=== PATIENT | female | born 1995 | race Caucasian/White ===

== ENCOUNTER 2016-06-30 16:46 | Emergency (ER) | payer OTHER ==
[2016-06-30 17:14] VITALS: BP 125/59; PULSE 98; RESP 20; TEMP 98.1
[2016-06-30] MEDS ORDERED: KETOROLAC 60 MG/2 ML VIAL IM STA (17:23)
[2016-06-30] MEDS ORDERED: ORPHENADRINE 30 MG/ML 2 ML VIAL IM STA (17:23)
[2016-06-30 17:40] LABS: Appearance,Urine Cloudy (Clear); Bacteria,Urine Occasional /hpf; Bilirubin,Urine Negative (Negative); Glucose,Urine (UA) Negative (Negative); Ketones,Urine Negative (Negative); Leukocyte Esterase,Urine Moderate (Negative); Mucus,Urine Rare /hpf; Nitrite,Urine Negative (Negative); PH, Urine 6.5 (5.0-8.0); Particle Count 24972; Protein,Urine Trace (Negative); RBC,Urine 10 /hpf (0-5); Specific Gravity,Urine 1.021 (1.001-1.035); Squamous Epithelial Cell,Urine 5 /hpf (0-4); UA Billing (MACRO vs. MICRO) MICRO; Urobilinogen,Urine <2.0 mg/dL (<2.0); WBC,Urine 11 /hpf (0-5)
--- NOTE | 2016-06-30 17:46 | ED ---
Back Pain HPI - General Chief Complaint: Back Pain/Injury Stated Complaint: Back Pain Time Seen by Provider: 06/30/16 17:16 Source: patient Limitations: no limitations - History of Present Illness Initial Comments: Patient is a 20-year-old female with chief complaint of bilateral lower back pain for approximately one day. Patient reports that she woke up with this pain, and occasionally wraps to the left lower abdomen. She states that she's taken Motrin without any help. She denies any dysuria, fever or chills. She states that she has no vaginal discharge. Patient reports LMP was on 2 months ago, so patient reports she is on the Nexplanon implant. Patient reports that she had a negative test yesterday. Ports of the pain is worse with movement. Patient denies any fever, chills, nausea, vomiting, chest pain. - Related Data Previous Rx's Medication Instructions Recorded Cyclobenzaprine [Flexeril] 10 mg PO TID #20 tab 06/30/16 Nitrofurantoin Monohyd/M-Cryst 100 mg PO Q12HR #10 cap 06/30/16 [Macrobid] traMADol HCl [Ultram] 50 mg PO Q6H PRN #15 tab 06/30/16 Allergies Allergy/AdvReac Type Severity Reaction Status Date / Time venom-honey bee Allergy Anaphylaxis Verified 06/30/16 17:31 [bee venom (honey bee)] Review of Systems ROS Statement: Those systems with pertinent positive or pertinent negative responses have been documented in the HPI. ROS Other: All systems not noted in ROS Statement are negative. Past Medical History Past Medical History: No Reported History History of Any Multi-Drug Resistant Organisms: None Reported Past Surgical History: No Surgical Hx Reported Past Anesthesia/Blood Transfusion Reactions: No Reported Reaction Past Psychological History: No Psychological Hx Reported Smoking Status: Never smoker Past Alcohol Use History: Occasional Past Drug Use History: None Reported - Past Family History Mother Family Medical History: No Reported History General Exam - General Exam Comments Initial Comments: Pleasant 20-year-old female. Patient does not appear to be in any acute distress. Limitations: no limitations General appearance: alert, in no apparent distress Head exam: Present: atraumatic, normocephalic, normal inspection Eye exam: Present: normal appearance, PERRL, EOMI. Absent: scleral icterus, conjunctival injection, periorbital swelling ENT exam: Present: normal exam, normal oropharynx, mucous membranes moist, TM's normal bilaterally Neck exam: Present: normal inspection. Absent: tenderness, meningismus, lymphadenopathy Respiratory exam: Present: normal lung sounds bilaterally. Absent: respiratory distress, wheezes, rales, rhonchi, stridor Cardiovascular Exam: Present: regular rate, normal rhythm, normal heart sounds. Absent: systolic murmur, diastolic murmur, rubs, gallop, clicks GI/Abdominal exam: Present: soft, normal bowel sounds. Absent: distended, tenderness, guarding, rebound, rigid Extremities exam: Present: normal inspection, full ROM, normal capillary refill. Absent: tenderness, pedal edema, joint swelling, calf tenderness Back exam: Present: normal inspection, full ROM, other (Mild lumbar lower spinal tenderness.). Absent: tenderness Neurological exam: Present: alert, oriented X3, CN II-XII intact Psychiatric exam: Present: normal affect, normal mood Skin exam: Present: warm, dry, intact, normal color. Absent: rash Course Vital Signs 06/30/16 17:11 Temperature 98.1 F Pulse Rate 98 Respiratory 20 Rate Blood Pressure 125/59 O2 Sat by Pulse 99 Oximetry Medical Decision Making - Medical Decision Making Patient is a 20-year-old female with chief complaint of lower back pain for approximately one day. Patient reports that she will comply with this pain. She also reports that occasionally radiates towards her left lower quadrant with certain movements. Patient's urinalysis that show moderate blood and white blood cells. Patient denies any significant dysuria reports that she does have frequent urinary tract infections. Patient denies any trauma because her injury of back pain. Patient declines having any x-rays or imaging studies. Patient was given IM Toradol and Norflex. Also urinalysis will be treated and cultured for urinary tract infection. She'll be placed on Macrobid. Patient advised to follow up with primary care provider if symptoms continue persist. Return parameters were discussed. - Lab Data Lab Results 06/30/16 06/30/16 Range/Units 17:30 17:30 Urine Color Yellow Urine Appearance Cloudy H (Clear) Urine pH 6.5 (5.0-8.0) Ur Specific [place] 1.021 (1.001-1.035) Urine Protein Trace H (Negative) Urine Glucose (UA) Negative (Negative) Urine Ketones Negative (Negative) Urine Blood Moderate H (Negative) Urine Nitrite Negative (Negative) Urine Bilirubin Negative (Negative) Urine Urobilinogen <2.0 (<2.0) mg/dL Ur Leukocyte Esterase Moderate H (Negative) Urine RBC 10 H (0-5) /hpf Urine WBC 11 H (0-5) /hpf Ur Squamous Epith Cells 5 H (0-4) /hpf Urine Bacteria Occasional H (None) /hpf Urine Mucus Rare H (None) /hpf Urine HCG, Qual Not Detected (Not Detectd) Disposition Clinical Impression: Lower back pain, UTI (urinary tract infection) Disposition: HOME SELF-CARE Condition: Good Instructions: Acute Low Back Pain (ED) Additional Instructions: Patient denies to apply heat and ice over the lower back. Take medications as prescribed. Return to emergency Department if any alarming signs or symptoms occur. Follow-up with primary care provider in next 1-2 days. Prescriptions: Cyclobenzaprine [Flexeril] 10 mg PO TID #20 tab Nitrofurantoin Monohyd/M-Cryst [Macrobid] 100 mg PO Q12HR #10 cap traMADol HCl [Ultram] 50 mg PO Q6H PRN #15 tab PRN Reason: Pain Referrals: Charly Bautista MD [Primary Care Provider] - 1-2 days Time of Disposition: 18:02
== END 2016-06-30 18:10 | disposition home or self-care (01) ==
LOC: EC 16:46
DX: N39.0 Urinary tract infection, site not specified (principal); M54.5 Low back pain; R10.32 Left lower quadrant pain; Z91.030 Bee allergy status
CPT/HCPCS: 81001; 81025; 87086; 99283; 96372 ×2; J2360; J1885; 87077; 87186

== ENCOUNTER 2016-12-22 02:28 | Emergency (ER) | payer OTHER ==
[2016-12-22] MEDS ORDERED: SODIUM CHLORIDE 0.9% 1,000 ML IV STA (02:57)
[2016-12-22 03:14] LABS: Basophils % (A) 0 %; CH 30.7; CHCM 33.1; Eosinophils # (A) 0.1 k/uL (0-0.7); Eosinophils % (A) 1 %; HCT 40.8 % (34.0-46.0); HDW 2.53; HGB 13.2 gm/dL (11.4-16.0); Luc # (Auto) 0.21; Luc % (Auto) 3; Lymphocytes # (A) 2.8 k/uL (1.0-4.8); Lymphocytes % (A) 38 %; MCH 30.2 pg (25.0-35.0); MCHC 32.4 g/dL (31.0-37.0); MCV 93.2 fL (80.0-100.0); Mean Platelet Volume 6.8; Monocytes # (A) 0.5 k/uL (0-1.0); Monocytes % (A) 6 %; Neutrophils # (A) 3.8 k/uL (1.3-7.7); Neutrophils % (A) 52 %; RBC 4.38 m/uL (3.80-5.40); WBC 7.4 k/uL (3.8-10.6); WBC (Perox) 7.51
[2016-12-22 03:20] LABS: Appearance,Urine Clear (Clear); Bilirubin,Urine Negative (Negative); Glucose,Urine (UA) Negative (Negative); Ketones,Urine Negative (Negative); Leukocyte Esterase,Urine Trace (Negative); Mucus,Urine Rare /hpf; Nitrite,Urine Negative (Negative); PH, Urine 6.5 (5.0-8.0); Particle Count 1923; Protein,Urine Trace (Negative); RBC,Urine 3 /hpf (0-5); Specific Gravity,Urine 1.025 (1.001-1.035); Squamous Epithelial Cell,Urine 3 /hpf (0-4); UA Billing (MACRO vs. MICRO) MICRO; WBC,Urine 1 /hpf (0-5)
[2016-12-22 03:24] LABS: ALT 46 U/L (9-52); AST 25 U/L (14-36); Alkaline Phosphatase 87 U/L (38-126); Anion Gap 12 mmol/L; Blood Urea Nitrogen 11 mg/dL (7-17); Calcium 9.2 mg/dL (8.4-10.2); Carbon Dioxide 21 mmol/L (22-30); Chloride 109 mmol/L (98-107); Glucose 93 mg/dL (74-99); Non-African American GFR(MDRD) >60 (>60 ml/min/1.73 sqM); Potassium 3.4 mmol/L (3.5-5.1); Sodium 142 mmol/L (137-145); Total Bilirubin 0.4 mg/dL (0.2-1.3); Total Protein 7.2 g/dL (6.3-8.2)
--- NOTE | 2016-12-22 03:52 | ED ---
General Adult HPI - General Chief complaint: GI Bleed Stated complaint: Bloody stool Time Seen by Provider: 12/22/16 02:45 Source: patient, RN notes reviewed Mode of arrival: ambulatory Limitations: no limitations - History of Present Illness Initial comments: Patient 21-year-old female who presents emergency room today with a chief complaint of diarrhea over the last 2-3 days. She does admit that tonight she had an episode of diarrhea and noticed some blood in the toilet. She states it was using toilet paper. She denies any lightheadedness or dizziness. She does admit to some lower abdominal cramping. Denies any pain at this time. Patient denies any other complaints or associated symptoms. Patient denies any recent fever, chills, shortness of breath, chest pain, back pain, nausea or vomiting, numbness or tingling, dysuria or hematuria, constipation, headaches or visual changes, or any other complaints. - Related Data Previous Rx's Medication Instructions Recorded Cyclobenzaprine [Flexeril] 10 mg PO TID #20 tab 06/30/16 Nitrofurantoin Monohyd/M-Cryst 100 mg PO Q12HR #10 cap 06/30/16 [Macrobid] traMADol HCl [Ultram] 50 mg PO Q6H PRN #15 tab 06/30/16 Allergies Allergy/AdvReac Type Severity Reaction Status Date / Time venom-honey bee Allergy Anaphylaxis Verified 12/22/16 02:38 [bee venom (honey bee)] Review of Systems ROS Statement: Those systems with pertinent positive or pertinent negative responses have been documented in the HPI. ROS Other: All systems not noted in ROS Statement are negative. Past Medical History Past Medical History: No Reported History History of Any Multi-Drug Resistant Organisms: None Reported Past Surgical History: No Surgical Hx Reported Past Anesthesia/Blood Transfusion Reactions: No Reported Reaction Past Psychological History: No Psychological Hx Reported Smoking Status: Never smoker Past Alcohol Use History: Occasional Past Drug Use History: None Reported - Past Family History Mother Family Medical History: No Reported History General Exam - General Exam Comments Initial Comments: General: The patient is awake and alert, in no distress, and does not appear acutely ill. Eye: Pupils are equal, round and reactive to light, extra-ocular movements are intact. No nystagmus. There is normal conjunctiva bilaterally. No signs of icterus. Ears, nose, mouth and throat: There are moist mucous membranes and no oral lesions. Neck: The neck is supple, there is no tenderness or JVD. Cardiovascular: There is a regular rate and rhythm. No murmur, rub or gallop is appreciated. Respiratory: Lungs are clear to auscultation, respirations are non-labored, breath sounds are equal. No wheezes, stridor, rales, or rhonchi. Gastrointestinal: Soft, non-distended, non-tender abdomen without masses or organomegaly noted. There is no rebound or guarding present. No CVA tenderness. Bowel sounds are unremarkable. Musculoskeletal: Normal ROM, no tenderness. Strength 5/5. Sensation intact. Pulses equal bilaterally 2+. Neurological: A&O x 3. CN II-XII intact, There are no obvious motor or sensory deficits. Coordination appears grossly intact. Speech is normal. Skin: Skin is warm and dry and no rashes or lesions are noted. Psychiatric: Cooperative, appropriate mood & affect, normal judgment. : [employer] Lopez present for exam. Normal rectal tone no obvious bright red blood per rectum. Limitations: no limitations Course Vital Signs 12/22/16 02:34 Temperature 98.6 F Pulse Rate 98 Respiratory 16 Rate Blood Pressure 147/74 O2 Sat by Pulse 98 Oximetry Medical Decision Making - Medical Decision Making Patient's labs been reviewed and stable hemoglobin. Vitals are stable. Guaiac negative. At this time patient resting comfortable. Soft nontender. She is will be discharged home advised follow-up with her PCP in the next 2 days. Advised return if any symptoms increase or worsen or for any other concerns. - Lab Data Result diagrams: 12/22/16 02:55 12/22/16 02:55 Lab Results 12/22/16 12/22/16 12/22/16 Range/Units 02:55 02:55 02:55 WBC 7.4 (3.8-10.6) k/uL RBC 4.38 (3.80-5.40) m/uL Hgb 13.2 (11.4-16.0) gm/dL Hct 40.8 (34.0-46.0) % MCV 93.2 (80.0-100.0) fL MCH 30.2 (25.0-35.0) pg MCHC 32.4 (31.0-37.0) g/dL RDW 13.0 (11.5-15.5) % Plt Count 238 (150-450) k/uL Neutrophils % 52 % Lymphocytes % 38 % Monocytes % 6 % Eosinophils % 1 % Basophils % 0 % Neutrophils # 3.8 (1.3-7.7) k/uL Lymphocytes # 2.8 (1.0-4.8) k/uL Monocytes # 0.5 (0-1.0) k/uL Eosinophils # 0.1 (0-0.7) k/uL Basophils # 0.0 (0-0.2) k/uL Sodium 142 (137-145) mmol/L Potassium 3.4 L (3.5-5.1) mmol/L Chloride 109 H (98-107) mmol/L Carbon Dioxide 21 L (22-30) mmol/L Anion Gap 12 mmol/L BUN 11 (7-17) mg/dL Creatinine 0.80 (0.52-1.04) mg/dL Est GFR (MDRD) Af Amer >60 (>60 ml/min/1.73 sqM) Est GFR (MDRD) Non-Af >60 (>60 ml/min/1.73 sqM) Glucose 93 (74-99) mg/dL Calcium 9.2 (8.4-10.2) mg/dL Total Bilirubin 0.4 (0.2-1.3) mg/dL AST 25 (14-36) U/L ALT 46 (9-52) U/L Alkaline Phosphatase 87 (38-126) U/L Total Protein 7.2 (6.3-8.2) g/dL Albumin 4.3 (3.5-5.0) g/dL Urine Color Urine Appearance (Clear) Urine pH (5.0-8.0) Ur Specific [place] (1.001-1.035) Urine Protein (Negative) Urine Glucose (UA) (Negative) Urine Ketones (Negative) Urine Blood (Negative) Urine Nitrite (Negative) Urine Bilirubin (Negative) Urine Urobilinogen (<2.0) mg/dL Ur Leukocyte Esterase (Negative) Urine RBC (0-5) /hpf Urine WBC (0-5) /hpf Ur Squamous Epith Cells (0-4) /hpf Urine Mucus (None) /hpf Urine HCG, Qual Not Detected (Not Detectd) Stool Occult Blood (Negative) 09/27/17 09/27/17 Range/Units 02:55 02:55 WBC (3.8-10.6) k/uL RBC (3.80-5.40) m/uL Hgb (11.4-16.0) gm/dL Hct (34.0-46.0) % MCV (80.0-100.0) fL MCH (25.0-35.0) pg MCHC (31.0-37.0) g/dL RDW (11.5-15.5) % Plt Count (150-450) k/uL Neutrophils % % Lymphocytes % % Monocytes % % Eosinophils % % Basophils % % Neutrophils # (1.3-7.7) k/uL Lymphocytes # (1.0-4.8) k/uL Monocytes # (0-1.0) k/uL Eosinophils # (0-0.7) k/uL Basophils # (0-0.2) k/uL Sodium (137-145) mmol/L Potassium (3.5-5.1) mmol/L Chloride (98-107) mmol/L Carbon Dioxide (22-30) mmol/L Anion Gap mmol/L BUN (7-17) mg/dL Creatinine (0.52-1.04) mg/dL Est GFR (MDRD) Af Amer (>60 ml/min/1.73 sqM) Est GFR (MDRD) Non-Af (>60 ml/min/1.73 sqM) Glucose (74-99) mg/dL Calcium (8.4-10.2) mg/dL Total Bilirubin (0.2-1.3) mg/dL AST (14-36) U/L ALT (9-52) U/L Alkaline Phosphatase (38-126) U/L Total Protein (6.3-8.2) g/dL Albumin (3.5-5.0) g/dL Urine Color Yellow Urine Appearance Clear (Clear) Urine pH 6.5 (5.0-8.0) Ur Specific [place] 1.025 (1.001-1.035) Urine Protein Trace H (Negative) Urine Glucose (UA) Negative (Negative) Urine Ketones Negative (Negative) Urine Blood Negative (Negative) Urine Nitrite Negative (Negative) Urine Bilirubin Negative (Negative) Urine Urobilinogen 2.0 (<2.0) mg/dL Ur Leukocyte Esterase Trace H (Negative) Urine RBC 3 (0-5) /hpf Urine WBC 1 (0-5) /hpf Ur Squamous Epith Cells 3 (0-4) /hpf Urine Mucus Rare H (None) /hpf Urine HCG, Qual (Not Detectd) Stool Occult Blood Negative (Negative) Disposition Clinical Impression: Acute diarrhea Disposition: HOME SELF-CARE Condition: Good Instructions: Acute Diarrhea (ED) Additional Instructions: Please follow-up with family doctor in the next 2 days. Please return to emergency room if the symptoms increase or worsen or for any other concerns. Referrals: Charly Bautista MD [Primary Care Provider] - 1-2 days Time of Disposition: 03:51
[2016-12-22 04:32] VITALS: BP 128/74; PULSE 73; RESP 18; TEMP 98.2
== END 2016-12-22 04:32 | disposition home or self-care (01) ==
LOC: EC 02:28
DX: R19.7 Diarrhea, unspecified (principal); Z91.030 Bee allergy status
CPT/HCPCS: 36415; 80053; 81001; 81025; 82272; 85025; 96360; 99284

== ENCOUNTER 2017-12-09 14:17 | Emergency (ER) | payer OTHER ==
[2017-12-09] MEDS ORDERED: SODIUM CHLORIDE 0.9% 1,000 ML IV STA (15:10)
[2017-12-09] MEDS ORDERED: KETOROLAC 30 MG/ML 1 ML VIAL IVP STA (15:11)
--- NOTE | 2017-12-09 15:15 | ED ---
General Adult HPI - General Chief complaint: Fever Stated complaint: fever Time Seen by Provider: 12/09/17 15:04 Source: patient, RN notes reviewed, old records reviewed Mode of arrival: wheelchair Limitations: no limitations - History of Present Illness Initial comments: 22-year-old female presenting for evaluation of fever and chills. Patient is otherwise healthy. No chronic medical conditions. She states that over the past 3-4 days she's had generalized weakness, fever chills, T-max 102. She does report a mild cough. And mild sore throat. Denies headache at the time my evaluation. Denies abdominal pain or nausea vomiting or diarrhea. Denies dysuria. Denies abnormal vaginal discharge. Denies rash. She was seen at an outside hospital, diagnosed as viral syndrome and discharged with symptomatic treatment. This was 2 days prior. - Related Data Home Medications Medication Instructions Recorded Confirmed Acetaminophen Tab [Tylenol Tab] 325 mg PO Q4H PRN 12/09/17 12/09/17 Ibuprofen [Advil] 400 mg PO Q8HR PRN 12/09/17 12/09/17 Previous Rx's Medication Instructions Recorded Azithromycin [Zithromax Z-pack] 0 mg PO DIRECTED #6 tab 12/09/17 Allergies Allergy/AdvReac Type Severity Reaction Status Date / Time venom-honey bee Allergy Anaphylaxis Verified 12/09/17 16:01 [bee venom (honey bee)] Review of Systems ROS Statement: Those systems with pertinent positive or pertinent negative responses have been documented in the HPI. ROS Other: All systems not noted in ROS Statement are negative. Past Medical History Past Medical History: No Reported History History of Any Multi-Drug Resistant Organisms: None Reported Past Surgical History: Section Past Anesthesia/Blood Transfusion Reactions: No Reported Reaction Past Psychological History: Depression Smoking Status: Never smoker Past Alcohol Use History: Occasional Past Drug Use History: None Reported - Past Family History Mother Family Medical History: No Reported History General Exam Limitations: no limitations General appearance: alert, in no apparent distress Head exam: Present: atraumatic, normocephalic Eye exam: Present: normal appearance. Absent: PERRL, EOMI ENT exam: Absent: normal exam (Mild pharyngeal erythema, no tonsillar swelling or exudate) Neck exam: Present: normal inspection, full ROM. Absent: tenderness, meningismus Respiratory exam: Present: normal lung sounds bilaterally. Absent: respiratory distress, wheezes, rhonchi Cardiovascular Exam: Present: normal rhythm, tachycardia GI/Abdominal exam: Present: soft. Absent: distended, tenderness, guarding, rebound Extremities exam: Present: normal inspection, normal capillary refill. Absent: pedal edema Back exam: Present: normal inspection Neurological exam: Present: alert, oriented X3, CN II-XII intact. Absent: motor sensory deficit Psychiatric exam: Present: normal affect, normal mood Skin exam: Present: warm, dry, intact. Absent: cyanosis, diaphoretic Course Vital Signs 12/09/17 12/09/17 12/09/17 14:19 14:45 16:58 Temperature 99.8 F H 99.2 F Pulse Rate 115 H 104 H 114 H Respiratory 18 18 18 Rate Blood Pressure 116/69 130/67 139/85 O2 Sat by Pulse 99 99 98 Oximetry Medical Decision Making - Medical Decision Making 22-year-old female presenting with cough and fever 4 days. Chest x-ray obtained, does have right upper lobe pneumonia. Elevated white blood cell count of 14.8. Normal CMP, normal UA. On reevaluation, patient is feeling better. Vital signs are improved. She will continue symptomatically treatment at home as well as a azithromycin for community-acquired pneumonia. - Lab Data Result diagrams: 12/09/17 15:31 12/09/17 15:31 Lab Results 12/09/17 12/09/17 12/09/17 Range/Units 15:31 15:31 15:31 WBC 14.8 H (3.8-10.6) k/uL RBC 4.38 (3.80-5.40) m/uL Hgb 13.2 (11.4-16.0) gm/dL Hct 39.7 (34.0-46.0) % MCV 90.7 (80.0-100.0) fL MCH 30.1 (25.0-35.0) pg MCHC 33.2 (31.0-37.0) g/dL RDW 12.6 (11.5-15.5) % Plt Count 217 (150-450) k/uL Neutrophils % 85 % Lymphocytes % 8 % Monocytes % 5 % Eosinophils % 1 % Basophils % 0 % Neutrophils # 12.6 H (1.3-7.7) k/uL Lymphocytes # 1.1 (1.0-4.8) k/uL Monocytes # 0.8 (0-1.0) k/uL Eosinophils # 0.2 (0-0.7) k/uL Basophils # 0.0 (0-0.2) k/uL Sodium 140 (137-145) mmol/L Potassium 4.0 (3.5-5.1) mmol/L Chloride 104 (98-107) mmol/L Carbon Dioxide 24 (22-30) mmol/L Anion Gap 12 mmol/L BUN 10 (7-17) mg/dL Creatinine 0.73 (0.52-1.04) mg/dL Est GFR (CKD-EPI)AfAm >90 (>60 ml/min/1.73 sqM) Est GFR (CKD-EPI)NonAf >90 (>60 ml/min/1.73 sqM) Glucose 100 H (74-99) mg/dL Calcium 9.3 (8.4-10.2) mg/dL Total Bilirubin 0.7 (0.2-1.3) mg/dL AST 21 (14-36) U/L ALT 30 (9-52) U/L Alkaline Phosphatase 68 (38-126) U/L Total Protein 7.6 (6.3-8.2) g/dL Albumin 4.3 (3.5-5.0) g/dL Urine Color Urine Appearance (Clear) Urine pH (5.0-8.0) Ur Specific [place] (1.001-1.035) Urine Protein (Negative) Urine Glucose (UA) (Negative) Urine Ketones (Negative) Urine Blood (Negative) Urine Nitrite (Negative) Urine Bilirubin (Negative) Urine Urobilinogen (<2.0) mg/dL Ur Leukocyte Esterase (Negative) Urine RBC (0-5) /hpf Urine WBC (0-5) /hpf Ur Squamous Epith Cells (0-4) /hpf Urine Bacteria (None) /hpf Hyaline Casts (0-2) /lpf Urine Mucus (None) /hpf Urine HCG, Qual Not Detected (Not Detectd) Group A Strep Rapid (Negative) 12/09/17 12/09/17 Range/Units 15:31 15:31 WBC (3.8-10.6) k/uL RBC (3.80-5.40) m/uL Hgb (11.4-16.0) gm/dL Hct (34.0-46.0) % MCV (80.0-100.0) fL MCH (25.0-35.0) pg MCHC (31.0-37.0) g/dL RDW (11.5-15.5) % Plt Count (150-450) k/uL Neutrophils % % Lymphocytes % % Monocytes % % Eosinophils % % Basophils % % Neutrophils # (1.3-7.7) k/uL Lymphocytes # (1.0-4.8) k/uL Monocytes # (0-1.0) k/uL Eosinophils # (0-0.7) k/uL Basophils # (0-0.2) k/uL Sodium (137-145) mmol/L Potassium (3.5-5.1) mmol/L Chloride (98-107) mmol/L Carbon Dioxide (22-30) mmol/L Anion Gap mmol/L BUN (7-17) mg/dL Creatinine (0.52-1.04) mg/dL Est GFR (CKD-EPI)AfAm (>60 ml/min/1.73 sqM) Est GFR (CKD-EPI)NonAf (>60 ml/min/1.73 sqM) Glucose (74-99) mg/dL Calcium (8.4-10.2) mg/dL Total Bilirubin (0.2-1.3) mg/dL AST (14-36) U/L ALT (9-52) U/L Alkaline Phosphatase (38-126) U/L Total Protein (6.3-8.2) g/dL Albumin (3.5-5.0) g/dL Urine Color Yellow Urine Appearance Clear (Clear) Urine pH 6.5 (5.0-8.0) Ur Specific [place] 1.024 (1.001-1.035) Urine Protein Trace H (Negative) Urine Glucose (UA) Negative (Negative) Urine Ketones Negative (Negative) Urine Blood Negative (Negative) Urine Nitrite Negative (Negative) Urine Bilirubin Negative (Negative) Urine Urobilinogen <2.0 (<2.0) mg/dL Ur Leukocyte Esterase Small H (Negative) Urine RBC 2 (0-5) /hpf Urine WBC 6 H (0-5) /hpf Ur Squamous Epith Cells 2 (0-4) /hpf Urine Bacteria Rare H (None) /hpf Hyaline Casts 1 (0-2) /lpf Urine Mucus Rare H (None) /hpf Urine HCG, Qual (Not Detectd) Group A Strep Rapid Negative (Negative) Disposition Clinical Impression: Community acquired pneumonia Disposition: HOME SELF-CARE Condition: Good Instructions: Fever in Adults (ED), Bacterial Pneumonia (ED) Prescriptions: Azithromycin [Zithromax Z-pack] 0 mg PO DIRECTED #6 tab Is patient prescribed a controlled substance at d/c from ED?: No Referrals: None,Stated [Primary Care Provider] - 1-2 days Charly Bautista MD [REFERRING] - 1-2 days Time of Disposition: 17:50
[2017-12-09 15:45] LABS: Basophils % (A) 0 %; Eosinophils # (A) 0.2 k/uL (0-0.7); Eosinophils % (A) 1 %; HCT 39.7 % (34.0-46.0); HGB 13.2 gm/dL (11.4-16.0); Lymphocytes # (A) 1.1 k/uL (1.0-4.8); Lymphocytes % (A) 8 %; MCH 30.1 pg (25.0-35.0); MCHC 33.2 g/dL (31.0-37.0); MCV 90.7 fL (80.0-100.0); Mean Platelet Volume 6.9; Monocytes # (A) 0.8 k/uL (0-1.0); Monocytes % (A) 5 %; Neutrophils # (A) 12.6 k/uL (1.3-7.7); Neutrophils % (A) 85 %; Platelet Count 217 k/uL (150-450); RBC 4.38 m/uL (3.80-5.40); RDW 12.6 % (11.5-15.5); WBC 14.8 k/uL (3.8-10.6)
[2017-12-09 16:02] LABS: ALT 30 U/L (9-52); AST 21 U/L (14-36); Albumin 4.3 g/dL (3.5-5.0); Alkaline Phosphatase 68 U/L (38-126); Anion Gap 12 mmol/L; Blood Urea Nitrogen 10 mg/dL (7-17); Calcium 9.3 mg/dL (8.4-10.2); Carbon Dioxide 24 mmol/L (22-30); Chloride 104 mmol/L (98-107); Glucose 100 mg/dL (74-99); Sodium 140 mmol/L (137-145); Total Bilirubin 0.7 mg/dL (0.2-1.3); Total Protein 7.6 g/dL (6.3-8.2)
[2017-12-09 16:03] LABS: Appearance,Urine Clear (Clear); Bacteria,Urine Rare /hpf; Bilirubin,Urine Negative (Negative); Blood,Urine Negative (Negative); Color,Urine Yellow; Glucose,Urine (UA) Negative (Negative); Hyaline Casts,Urine 1 /lpf (0-2); Ketones,Urine Negative (Negative); Leukocyte Esterase,Urine Small (Negative); Mucus,Urine Rare /hpf; Nitrite,Urine Negative (Negative); PH, Urine 6.5 (5.0-8.0); Protein,Urine Trace (Negative); RBC,Urine 2 /hpf (0-5); Specific Gravity,Urine 1.024 (1.001-1.035); Squamous Epithelial Cell,Urine 2 /hpf (0-4); Urobilinogen,Urine <2.0 mg/dL (<2.0); WBC,Urine 6 /hpf (0-5)
--- NOTE | 2017-12-09 16:29 | XR ---
EXAMINATION TYPE: XR chest 2V DATE OF EXAM: 12/09/2017 COMPARISON: NONE HISTORY: Fever, shortness of breath, and cough. TECHNIQUE: Frontal and lateral views of the chest are obtained. FINDINGS: There is suspicious airspace opacity confirmed on 2 views in the posterior aspect of the r ight upper lobe. Left lung is clear. No significant pleural effusion or pneumothorax is seen bilatera lly. The cardiac silhouette size is within normal limits. The osseous structures are intact. Incid ental overlying left nipple metallic ornament. IMPRESSION: Acute pneumonic infiltrate inferior aspect right upper lobe noted.
[2017-12-09] MEDS ORDERED: AZITHROMYCIN 500 MG in SODIUM CHLORIDE 0.9% 250 ML IVPB STA (16:45)
[2017-12-09 19:39] VITALS: BP 106/58; PULSE 101; RESP 16; TEMP 98.9
== END 2017-12-09 18:30 | disposition home or self-care (01) ==
LOC: EC 14:17
DX: J18.1 Lobar pneumonia, unspecified organism (principal); D72.829 Elevated white blood cell count, unspecified; R00.0 Tachycardia, unspecified; J02.9 Acute pharyngitis, unspecified; Z91.030 Bee allergy status
CPT/HCPCS: 36415; 80053; 85025; 81001; 81025; 87040; 87086; 87081; 87430; 71046; 99284; 96365; 96367; 96375; 96361; J0456; J0696; J1885

== ENCOUNTER 2017-12-11 14:16 | Emergency (ER) | payer OTHER ==
[2017-12-11 14:29] VITALS: BP 111/75; PULSE 84; TEMP 97.8
[2017-12-11 14:48] VITALS: RESP 18
--- NOTE | 2017-12-11 14:54 | ED ---
General Adult HPI - General Chief complaint: Upper Respiratory Infection Stated complaint: Cough Time Seen by Provider: 12/11/17 14:32 Source: patient, RN notes reviewed, old records reviewed Mode of arrival: ambulatory Limitations: no limitations - History of Present Illness Initial comments: Chief complaint history of present illness is a 22-year-old female here with a complaint of hemoptysis. The patient was diagnosed with a right upper lobe pneumonia several days ago in the emergency room. She was placed on a Zithromax and. She reports since then she's no longer febrile but this morning she did cough hard for approximately 30 minutes before the end of that time the phlegm had some blood streaks. Since then she's coughed and has had some white normal colored phlegm. Afebrile. No complaint of shortness of breath. - Related Data Home Medications Medication Instructions Recorded Confirmed Azithromycin [Zithromax Z-pack] See Taper PO DAILY 12/11/17 Previous Rx's Medication Instructions Recorded Benzonatate [Tessalon Perles] 200 mg PO TID #14 capsule 12/11/17 Allergies Allergy/AdvReac Type Severity Reaction Status Date / Time venom-honey bee Allergy Anaphylaxis Verified 12/11/17 14:45 [bee venom (honey bee)] Review of Systems ROS Statement: Those systems with pertinent positive or pertinent negative responses have been documented in the HPI. Review of systems no complaint of headache or visual acuity changes no ear pain no sinus discomfort no sore throat no chest pain or shortness of breath this time no GI/ problems no complaint of any numbness tingling or dizziness. All systems were reviewed. Past medical processing significant for recently being diagnosed with pneumonia on azithromycin for past several days. Surgeries include a . Family history breast cancers. Patient has ALLERGIES to bees. Nonsmoker. Rarely socially. ROS Other: All systems not noted in ROS Statement are negative. Past Medical History Past Medical History: Pneumonia History of Any Multi-Drug Resistant Organisms: None Reported Past Surgical History: Section Past Anesthesia/Blood Transfusion Reactions: No Reported Reaction Past Psychological History: Depression Smoking Status: Never smoker Past Alcohol Use History: Occasional Past Drug Use History: None Reported - Past Family History Mother Family Medical History: No Reported History General Exam - General Exam Comments Initial Comments: General: The patient is awake and alert, in no distress, and does not appear acutely ill. Here because she noticed a small amount of blood streaking in her phlegm after coughing mildly for 30 minutes. Subsequent phlegm has been free of any blood. Vital signs temperature 97.8 pulse 84 respiratory rate 16 blood pressure 111/75 pulse ox is 97% on room air. Eye: Pupils are equal, round and reactive to light, extra-ocular movements are intact ; there is normal conjunctiva bilaterally. No signs of icterus. Ears, nose, mouth and throat: There are moist mucous membranes and no oral lesions. Neck: The neck is supple, Cardiovascular: There is a regular rate and rhythm. No murmur, rub or gallop is appreciated. Respiratory: Lungs are clear to auscultation, respirations are non-labored, breath sounds are equal. No wheezes, stridor, rales, or rhonchi. Psychiatric: Cooperative, appropriate mood & affect, Limitations: no limitations Course Vital Signs 12/11/17 14:26 Temperature 97.8 F Pulse Rate 84 Respiratory 16 Rate Blood Pressure 111/75 O2 Sat by Pulse 97 Oximetry Medical Decision Making - Medical Decision Making Medical decision making; to 22-year-old female who recently diagnosed with right upper lobe pneumonia. On a Zithromax and for approximately 2-1/2 days. States she's feeling better, no fever. States she noticed some blood in her phlegm after a prolonged coughing fit this morning. Since then she's has cough the phlegm is not been blood streaked. Patient does not complain of shortness of breath. Examination finds lungs are clear no rubs rales or wheezing. Afebrile. Vital signs stable. Respiratory rate 16 pulse ox 97% room air. We did discuss hemoptysis associated with hard coughing and possibility of a small blood vessel being broken which has since stopped bleeding. Chest x-ray was offered for 2 reasons 14 reexamination relative to the pneumonia also possibility of secondary pathology not noticed on the first chest x-ray. At this time the patient states she does 1 await and get this done if necessary in a week when her antibiotics are completed and if she is not improving. The patient states she is trying to get . Patient advised return emergency room if there is any difficulties or problems. Disposition Clinical Impression: Cough with hemoptysis Disposition: HOME SELF-CARE Condition: Good Instructions: Hemoptysis (ED) Additional Instructions: Increase fluids stay well-hydrated, complete antibiotics. Take Tylenol for discomfort. Follow-up with family physician and/or return emergency room as needed. Suggested he get a chest x-ray in approximately 2 weeks to make sure the pneumonia has resolved. A she'll be placed on Tessalon Perles be taken as directed. Increase her fluids. Prescriptions: Benzonatate [Tessalon Perles] 200 mg PO TID #14 capsule Is patient prescribed a controlled substance at d/c from ED?: No Referrals: None,Stated [Primary Care Provider] - 1-2 days Time of Disposition: 14:54
== END 2017-12-11 15:06 | disposition home or self-care (01) ==
LOC: EC 14:16
DX: R04.2 Hemoptysis (principal); Z91.030 Bee allergy status
CPT/HCPCS: 99283

== ENCOUNTER 2017-12-17 15:49 | Emergency (ER) | payer OTHER ==
[2017-12-17 15:54] VITALS: RESP 18
[2017-12-17] MEDS ORDERED: KETOROLAC 30 MG/ML 1 ML VIAL IM STA (16:44)
[2017-12-17] MEDS ORDERED: ONDANSETRON 4 MG TAB PO STA (16:45)
[2017-12-17] MEDS ORDERED: SODIUM CHLORIDE 0.9% 1,000 ML IV ONE (16:47)
--- NOTE | 2017-12-17 16:55 | ED ---
Recheck HPI - General Chief Complaint: Recheck/Abnormal Lab/Rx Stated Complaint: Pneumonia Time Seen by Provider: 12/17/17 16:14 Source: patient Mode of arrival: ambulatory Limitations: no limitations - History of Present Illness Initial Comments: 22-year-old female with no past medical history presents today for chief complaint of I think I drank too much last night. Patient states that she was drinking with her friends she states that there was about 4-5 of them and they drank two fifths. She states that she made herself vomit last night after drinking at 3am. She woke up this morning stating that she had swollen eyes, however this has gone away. Patient has felt nauseous today, no episodes of vomiting. Patient states that she would also like a urine test to make sure she is not . She denies any vaginal bleeding, cramping or abdominal pain. Patient did state that she had a headache, she states that this is not the worst headache of her life, patient denies any falls or trauma. Patient denies any visual changes, muscle weakness differences in gait or speech. Remainder of ROS (-). - Related Data Home Medications Medication Instructions Recorded Confirmed Azithromycin [Zithromax Z-pack] See Taper PO DAILY 12/11/17 Previous Rx's Medication Instructions Recorded Benzonatate [Tessalon Perles] 200 mg PO TID #14 capsule 12/11/17 Allergies Allergy/AdvReac Type Severity Reaction Status Date / Time venom-honey bee Allergy Anaphylaxis Verified 12/17/17 15:54 [bee venom (honey bee)] Review of Systems ROS Statement: Those systems with pertinent positive or pertinent negative responses have been documented in the HPI. ROS Other: All systems not noted in ROS Statement are negative. Constitutional: Denies: fever, chills, night sweats Eyes: Denies: vision change ENT: Denies: ear pain, throat pain, hearing loss Respiratory: Denies: cough, dyspnea, wheezes, hemoptysis, stridor Cardiovascular: Denies: chest pain, palpitations, dyspnea on exertion Endocrine: Denies: fatigue Gastrointestinal: Reports: nausea, vomiting (last episode 3AM x1). Denies: abdominal pain, diarrhea, constipation, hematemesis Genitourinary: Denies: urgency, dysuria, frequency Musculoskeletal: Denies: back pain Skin: Denies: rash, lesions, change in color, change in hair/nails Neurological: Reports: headache (pt states diffuse headache, throbbing no radiation). Denies: weakness, numbness, paresthesias, confusion, abnormal gait , vertigo Past Medical History Past Medical History: Pneumonia History of Any Multi-Drug Resistant Organisms: None Reported Past Surgical History: Section Past Anesthesia/Blood Transfusion Reactions: No Reported Reaction Past Psychological History: Depression Smoking Status: Never smoker Past Alcohol Use History: Occasional Past Drug Use History: None Reported - Past Family History Mother Family Medical History: No Reported History General Exam - General Exam Comments Initial Comments: General: The patient is awake and alert, in no distress, and does not appear acutely ill. Eye: +3 mm pupils are equal, round and reactive to light, extra-ocular movements are intact. No APD. No nystagmus. There is normal conjunctiva bilaterally. No signs of icterus. Ears, nose, mouth and throat: There are moist mucous membranes and no oral lesions. Neck: The neck is supple, there is no tenderness or JVD. Cardiovascular: There is a regular rate and rhythm. No murmur, rub or gallop is appreciated. Respiratory: Lungs are clear to auscultation, respirations are non-labored, breath sounds are equal. No wheezes, stridor, rales, or rhonchi. Gastrointestinal: Soft, non-distended, non-tender abdomen without masses or organomegaly noted. There is no rebound or guarding present. No CVA tenderness. Bowel sounds are unremarkable. Musculoskeletal: Normal ROM, no tenderness. Strength 5/5. Sensation intact of the UE/LE equally b/l. Radial pulses equal bilaterally 2+. Neurological: A&O x 3. CN II-XII intact, There are no obvious motor or sensory deficits. Coordination appears grossly intact. Speech is normal. Gait coordinated. (-) Pronator drift. 5/5 UE and LE strength equally b/l. Skin: Skin is warm and dry and no rashes or lesions are noted. Psychiatric: Cooperative, appropriate mood & affect, normal judgment. Limitations: no limitations Course Vital Signs 12/17/17 12/17/17 15:52 18:20 Temperature 98 F 97.9 F Pulse Rate 78 70 Respiratory 18 18 Rate Blood Pressure 126/72 124/68 O2 Sat by Pulse 99 99 Oximetry Medical Decision Making - Medical Decision Making Pt given IM toradol 30mg for headache, 1,000mL bolus of NS, and zofran for nausea. Urine HCG (-). Abdominal and neurological exam unremarkable. Serum alcohol is <10. Pt stated toradol helped with PINTO. At this time we feel patient' s symptoms are due to her excessive alcohol intake. Pt agrees. Patient has no history concerning for intracranial process, patient denies this is the worst headache of all time and there are no focal neurological deficits low suspicion of subarachnoid hemorrhage at this time. Patient had no episodes of vomiting during stay. I was eating [employer] comfortably laughing on her telephone with her mother during stay. Patient appeared comfortable. Abdominal exam unremarkable. Patient was instructed to refrain from ingestion of alcohol, and repeat urine hCG the next 7 days. In addition patient was instructed to return for any change or worsening symptoms. And follow-up with primary care provider one to 2 days. Patient agrees with plan at this time we feel patient is stable for discharge. Case is discussed with prior to d/c. - Lab Data Result diagrams: 12/17/17 17:00 Lab Results 12/17/17 12/17/17 Range/Units 16:55 17:00 Sodium 142 (137-145) mmol/L Potassium 4.4 (3.5-5.1) mmol/L Chloride 104 (98-107) mmol/L Carbon Dioxide 29 (22-30) mmol/L Anion Gap 9 mmol/L BUN 14 (7-17) mg/dL Creatinine 0.79 (0.52-1.04) mg/dL Est GFR (CKD-EPI)AfAm >90 (>60 ml/min/1.73 sqM) Est GFR (CKD-EPI)NonAf >90 (>60 ml/min/1.73 sqM) Glucose 74 (74-99) mg/dL Calcium 9.1 (8.4-10.2) mg/dL Total Bilirubin 0.5 (0.2-1.3) mg/dL AST 45 H (14-36) U/L ALT 36 (9-52) U/L Alkaline Phosphatase 59 (38-126) U/L Total Protein 7.7 (6.3-8.2) g/dL Albumin 4.2 (3.5-5.0) g/dL Urine HCG, Qual Not Detected (Not Detectd) Serum Alcohol <10 mg/dL Disposition Clinical Impression: Headache, Alcohol ingestion Disposition: HOME SELF-CARE Condition: Good Instructions: Acute Headache (ED) Additional Instructions: Please use home medication as discussed. Please follow-up with family doctor in the next 2 days of symptoms have not improved. Please abstain from drinking alcohol, repeat urine in next 7 days. Please return to emergency room if the symptoms increase or worsen or for any other concerns. Is patient prescribed a controlled substance at d/c from ED?: No Referrals: None,Stated [Primary Care Provider] - 1-2 days Time of Disposition: 18:11
[2017-12-17 17:39] LABS: ALT 36 U/L (9-52); AST 45 U/L (14-36); Albumin 4.2 g/dL (3.5-5.0); Alcohol <10 mg/dL; Alkaline Phosphatase 59 U/L (38-126); Anion Gap 9 mmol/L; Calcium 9.1 mg/dL (8.4-10.2); Carbon Dioxide 29 mmol/L (22-30); Chloride 104 mmol/L (98-107); Glucose 74 mg/dL (74-99); Potassium 4.4 mmol/L (3.5-5.1); Sodium 142 mmol/L (137-145); Total Bilirubin 0.5 mg/dL (0.2-1.3); Total Protein 7.7 g/dL (6.3-8.2)
[2017-12-17 17:54] LABS: Blood Urea Nitrogen 14 mg/dL (7-17)
[2017-12-17 18:21] VITALS: BP 124/68; PULSE 70; TEMP 97.9
== END 2017-12-17 18:21 | disposition home or self-care (01) ==
LOC: EC 15:49
DX: T51.91XA Toxic effect of unspecified alcohol, accidental (unintentional), initial encounter (principal); R51 Headache; Z91.030 Bee allergy status
CPT/HCPCS: 36415; 80053; 81025; 99284; G0480; J1885; 80320

== ENCOUNTER 2018-02-16 09:18 | Emergency (ER) | payer OTHER ==
[2018-02-16 09:29] VITALS: TEMP 97.1
[2018-02-16] MEDS ORDERED: SODIUM CHLORIDE 0.9% 1,000 ML IV STA (10:21)
[2018-02-16 11:05] LABS: Appearance,Urine Clear (Clear); Bilirubin,Urine Negative (Negative); Blood,Urine Large (Negative); Color,Urine Yellow; Glucose,Urine (UA) Negative (Negative); Ketones,Urine Negative (Negative); Leukocyte Esterase,Urine Small (Negative); Nitrite,Urine Negative (Negative); PH, Urine 6.5 (5.0-8.0); Protein,Urine Negative (Negative); RBC,Urine >182 /hpf (0-5); Squamous Epithelial Cell,Urine <1 /hpf (0-4); Urobilinogen,Urine <2.0 mg/dL (<2.0); WBC,Urine 15 /hpf (0-5)
[2018-02-16 11:46] LABS: ALT 34 U/L (9-52); AST 21 U/L (14-36); Alkaline Phosphatase 64 U/L (38-126); Anion Gap 9 mmol/L; Basophils % (A) 0 %; Blood Urea Nitrogen 16 mg/dL (7-17); Carbon Dioxide 20 mmol/L (22-30); Chloride 112 mmol/L (98-107); Eosinophils # (A) 0.1 k/uL (0-0.7); Eosinophils % (A) 1 %; Glucose 98 mg/dL (74-99); HCT 40.5 % (34.0-46.0); HGB 13.1 gm/dL (11.4-16.0); Lipase 65 U/L (23-300); Lymphocytes # (A) 2.2 k/uL (1.0-4.8); Lymphocytes % (A) 33 %; MCH 30.6 pg (25.0-35.0); MCHC 32.5 g/dL (31.0-37.0); MCV 94.3 fL (80.0-100.0); Mean Platelet Volume 6.7; Monocytes # (A) 0.4 k/uL (0-1.0); Monocytes % (A) 6 %; Neutrophils # (A) 3.9 k/uL (1.3-7.7); Neutrophils % (A) 57 %; Platelet Count 215 k/uL (150-450); Potassium 4.5 mmol/L (3.5-5.1); RBC 4.29 m/uL (3.80-5.40); RDW 13.1 % (11.5-15.5); Sodium 141 mmol/L (137-145); Total Bilirubin 0.2 mg/dL (0.2-1.3); WBC 6.7 k/uL (3.8-10.6)
[2018-02-16 12:03] LABS: HCG,Quantitative Serum <2.4 mIU/mL
--- NOTE | 2018-02-16 12:12 | US ---
EXAMINATION TYPE: US transvaginal DATE OF EXAM: 02/16/2018 COMPARISON: NONE CLINICAL HISTORY: Pain. heavy bleeding TECHNIQUE: Transvaginal (TV). Date of LMP: 01/26/2018, EXAM MEASUREMENTS: Uterus: 8.7 x 4.4 x 4.0 cm Endometrial Stripe: 1.0 cm Right Ovary: 2.6 x 1.1 x 1.5 cm Left Ovary: 2.1 x 1.6 x 1.3 cm 1. Uterus: Anteverted wnl 2. Endometrium: wnl 3. Right Ovary: follicles seen 4. Left Ovary: Possible peripheral cystic lesion vs adnexal cyst = 1.1 x 1.1 x 0.9 cm Spectral, color and waveform doppler imaging shows good arterial and venous flow within the ovaries ; 5. Bilateral Adnexa: see left ovary notes 6. Posterior cul-de-sac: no free fluid Endometrium does not appear suspiciously thickened. No free fluid is seen in pelvis. Suspect incident al eccentric 1.1 cm prominent follicle or simple small ovarian cyst within left ovary IMPRESSION: No significant finding is seen to account for patient's symptoms.
--- NOTE | 2018-02-16 13:27 | ED ---
General Adult HPI - General Chief complaint: Vaginal Bleeding Stated complaint: Vaginal bleeding Time Seen by Provider: 02/16/18 09:29 Source: patient, RN notes reviewed Mode of arrival: ambulatory Limitations: no limitations - History of Present Illness Initial comments: 22-year-old female presents to the emergency department for a chief complaint of vaginal bleeding 2 days. Patient states the bleeding started as spotting and has progressed. Patient states she is passing clots. Patient states she is concerned that she may have been without knowing and miscarried. Patient states she has a lower abdominal cramping but denies any significant pain. Patient states she took plan B about a week ago and is wondering if that could be the cause. Patient denies any concerns for sexually transmitted diseases and denies any urinary symptoms. She denies any fevers or chills.Patient has no other complaints at this time including shortness of breath, chest pain, abdominal pain, nausea or vomiting, headache, or visual changes. - Related Data Home Medications Medication Instructions Recorded Confirmed Ibuprofen [Motrin Ib] 800 mg PO Q6H PRN 02/16/18 02/16/18 Allergies Allergy/AdvReac Type Severity Reaction Status Date / Time venom-honey bee Allergy Anaphylaxis Verified 02/16/18 10:03 [bee venom (honey bee)] Review of Systems ROS Statement: Those systems with pertinent positive or pertinent negative responses have been documented in the HPI. ROS Other: All systems not noted in ROS Statement are negative. Past Medical History Past Medical History: Pneumonia History of Any Multi-Drug Resistant Organisms: None Reported Past Surgical History: Section Past Anesthesia/Blood Transfusion Reactions: No Reported Reaction Past Psychological History: Depression Smoking Status: Never smoker Past Alcohol Use History: Occasional Past Drug Use History: None Reported - Past Family History Mother Family Medical History: No Reported History General Exam Limitations: no limitations General appearance: alert, in no apparent distress Head exam: Present: atraumatic, normocephalic, normal inspection Eye exam: Present: normal appearance, PERRL, EOMI. Absent: scleral icterus, conjunctival injection, periorbital swelling ENT exam: Present: normal exam, mucous membranes moist Neck exam: Present: normal inspection, full ROM. Absent: tenderness, meningismus, lymphadenopathy Respiratory exam: Present: normal lung sounds bilaterally. Absent: respiratory distress, wheezes, rales, rhonchi, stridor Cardiovascular Exam: Present: regular rate, normal rhythm, normal heart sounds. Absent: systolic murmur, diastolic murmur, rubs, gallop, clicks GI/Abdominal exam: Present: soft, normal bowel sounds. Absent: distended, tenderness (No abdominal tenderness noted), guarding, rebound, rigid External exam: Present: normal external exam Speculum exam: Present: vaginal bleeding (moderate vaginal bleeding noted). Absent: erythema, vaginal discharge, tissue, laceration By manual exam: Present: normal by manual exam. Absent: cervical motion tenderness, adnexal tenderness, adnexal mass, uterine enlargement, uterine tenderness Neurological exam: Present: alert, oriented X3, CN II-XII intact Psychiatric exam: Present: normal affect, normal mood Course Vital Signs 02/16/18 02/16/18 09:23 13:38 Temperature 97.1 F L 97.1 F L Pulse Rate 90 87 Respiratory 20 18 Rate Blood Pressure 127/77 124/87 O2 Sat by Pulse 99 99 Oximetry Medical Decision Making - Medical Decision Making 22-year-old female presents to the emergency department for a chief complaint of vaginal bleeding 2 days. Patient states she has been passing clots. Patient was concerned that she may have been without knowing it and miscarried. Patient states she did take Plan B about a week ago. She denies any abdominal pain but admits to mild cramping. Vitals are stable On exam no abdominal tenderness. Pelvic exam does reveal vaginal bleeding, moderate amount , no clots evident at this time. He was low been stable at 13.1 CMP unremarkable. HCG less than 2.4. Urine does show blood. Trichomonas is negative. Gonorrhea and chlamydia pending at this time. Endometrium does not appear suspiciously thickened on ultrasound. No free fluid in the pelvis. There is an incidental eccentric 1.1 cm prominent follicle or simple ovarian cyst within the left ovary. Patient is aware of this and will follow up with OB /[facility]ISON[facility] CLASS[facility] INTERVIEWER regarding cyst. However this does not account for patient's symptoms. Patient likely is having withdrawal bleeding from taking Plan B. She will return here if she has any worsening symptoms otherwise she will follow up with OBGYN in 1-2 days. - Lab Data Result diagrams: 02/16/18 11:00 02/16/18 11:00 Lab Results 11/22/18 11/22/18 11/22/18 Range/Units 10:31 10:35 11:00 WBC (3.8-10.6) k/uL RBC (3.80-5.40) m/uL Hgb (11.4-16.0) gm/dL Hct (34.0-46.0) % MCV (80.0-100.0) fL MCH (25.0-35.0) pg MCHC (31.0-37.0) g/dL RDW (11.5-15.5) % Plt Count (150-450) k/uL Neutrophils % % Lymphocytes % % Monocytes % % Eosinophils % % Basophils % % Neutrophils # (1.3-7.7) k/uL Lymphocytes # (1.0-4.8) k/uL Monocytes # (0-1.0) k/uL Eosinophils # (0-0.7) k/uL Basophils # (0-0.2) k/uL Sodium 141 (137-145) mmol/L Potassium 4.5 (3.5-5.1) mmol/L Chloride 112 H (98-107) mmol/L Carbon Dioxide 20 L (22-30) mmol/L Anion Gap 9 mmol/L BUN 16 (7-17) mg/dL Creatinine 0.70 (0.52-1.04) mg/dL Est GFR (CKD-EPI)AfAm >90 (>60 ml/min/1.73 sqM) Est GFR (CKD-EPI)NonAf >90 (>60 ml/min/1.73 sqM) Glucose 98 (74-99) mg/dL Calcium 9.0 (8.4-10.2) mg/dL Total Bilirubin 0.2 (0.2-1.3) mg/dL AST 21 (14-36) U/L ALT 34 (9-52) U/L Alkaline Phosphatase 64 (38-126) U/L Total Protein 7.0 (6.3-8.2) g/dL Albumin 4.0 (3.5-5.0) g/dL Lipase 65 (23-300) U/L HCG, Quant <2.4 mIU/mL Urine Color Yellow Urine Appearance Clear (Clear) Urine pH 6.5 (5.0-8.0) Ur Specific [place] 1.020 (1.001-1.035) Urine Protein Negative (Negative) Urine Glucose (UA) Negative (Negative) Urine Ketones Negative (Negative) Urine Blood Large H (Negative) Urine Nitrite Negative (Negative) Urine Bilirubin Negative (Negative) Urine Urobilinogen <2.0 (<2.0) mg/dL Ur Leukocyte Esterase Small H (Negative) Urine RBC >182 H (0-5) /hpf Urine WBC 15 H (0-5) /hpf Ur Squamous Epith Cells <1 (0-4) /hpf Trichomonas Ag (Rapid) Negative (Negative) 02/16/18 Range/Units 11:00 WBC 6.7 (3.8-10.6) k/uL RBC 4.29 (3.80-5.40) m/uL Hgb 13.1 (11.4-16.0) gm/dL Hct 40.5 (34.0-46.0) % MCV 94.3 (80.0-100.0) fL MCH 30.6 (25.0-35.0) pg MCHC 32.5 (31.0-37.0) g/dL RDW 13.1 (11.5-15.5) % Plt Count 215 (150-450) k/uL Neutrophils % 57 % Lymphocytes % 33 % Monocytes % 6 % Eosinophils % 1 % Basophils % 0 % Neutrophils # 3.9 (1.3-7.7) k/uL Lymphocytes # 2.2 (1.0-4.8) k/uL Monocytes # 0.4 (0-1.0) k/uL Eosinophils # 0.1 (0-0.7) k/uL Basophils # 0.0 (0-0.2) k/uL Sodium (137-145) mmol/L Potassium (3.5-5.1) mmol/L Chloride (98-107) mmol/L Carbon Dioxide (22-30) mmol/L Anion Gap mmol/L BUN (7-17) mg/dL Creatinine (0.52-1.04) mg/dL Est GFR (CKD-EPI)AfAm (>60 ml/min/1.73 sqM) Est GFR (CKD-EPI)NonAf (>60 ml/min/1.73 sqM) Glucose (74-99) mg/dL Calcium (8.4-10.2) mg/dL Total Bilirubin (0.2-1.3) mg/dL AST (14-36) U/L ALT (9-52) U/L Alkaline Phosphatase (38-126) U/L Total Protein (6.3-8.2) g/dL Albumin (3.5-5.0) g/dL Lipase (23-300) U/L HCG, Quant mIU/mL Urine Color Urine Appearance (Clear) Urine pH (5.0-8.0) Ur Specific [place] (1.001-1.035) Urine Protein (Negative) Urine Glucose (UA) (Negative) Urine Ketones (Negative) Urine Blood (Negative) Urine Nitrite (Negative) Urine Bilirubin (Negative) Urine Urobilinogen (<2.0) mg/dL Ur Leukocyte Esterase (Negative) Urine RBC (0-5) /hpf Urine WBC (0-5) /hpf Ur Squamous Epith Cells (0-4) /hpf Trichomonas Ag (Rapid) (Negative) Disposition Clinical Impression: Vaginal bleeding Disposition: HOME SELF-CARE Condition: Good Instructions: Dysfunctional Uterine Bleeding (ED) Additional Instructions: Please take Motrin for pain. Please follow up with [facility]PLANE MECHANIC APPRENTICE in one to 2 days. Please return to the emergency department if you have any worsening symptoms. Is patient prescribed a controlled substance at d/c from ED?: No Referrals: Karina Castano MD [STAFF PHYSICIAN] - 1-2 days Time of Disposition: 13:24
[2018-02-16 13:39] VITALS: BP 124/87; PULSE 87; RESP 18
== END 2018-02-16 13:38 | disposition home or self-care (01) ==
LOC: EC 09:18
DX: N93.9 Abnormal uterine and vaginal bleeding, unspecified (principal); Z32.02 Encounter for pregnancy test, result negative; Z91.030 Bee allergy status
CPT/HCPCS: 36415; 76830; 80053; 81001; 83690; 84702; 85025; 87491; 87591; 87808; 93975; 96360; 96361; 99284

== ENCOUNTER 2018-03-13 22:04 | Emergency (ER) | payer OTHER ==
[2018-03-13 22:13] VITALS: RESP 16
--- NOTE | 2018-03-13 23:18 | ED ---
Abdominal Pain HPI - General Chief Complaint: Abdominal Pain Stated Complaint: Poss Time Seen by Provider: 03/13/18 22:26 Source: patient Mode of arrival: ambulatory Limitations: no limitations - History of Present Illness Initial Comments: This patient is a 22-year-old woman who presents with a number of lower abdominal complaints that been present intermittently for the past number of weeks. The patient states that she has been having a bloated feeling, as well as some intermittent cramping that feels like menstrual cramps. She states that she also was due to start her menstrual cycle yesterday and only had a little bit of spotting and then it stopped. The patient relates that she is concerned because she did have a miscarriage approximately 2 months ago. She states that since that time she did not have a normal menstrual cycle. She states that she had been seen in the interval since that time when she had an episode of sexual intercourse with a new partner and this was followed by being seen here for plan B to prevent an accidental . She states that she has subsequently gotten back together with her original partner and that they are attempting to have a child now, therefore she is concerned about possible . The patient denies fever or chills. She has not had vomiting or diarrhea. No change in urination. She is not aware of any vaginal discharge. MD Complaint: abdominal pain Location: suprapubic Radiation: none Migration to: no migration Severity: mild Quality: cramping Consistency: intermittent Improves With: nothing Worsens With: nothing Associated Symptoms: denies other symptoms - Related Data LMP (females 10-50): 2 months Home Medications Medication Instructions Recorded Confirmed No Known Home Medications 03/13/18 03/13/18 Allergies Allergy/AdvReac Type Severity Reaction Status Date / Time venom-honey bee Allergy Anaphylaxis Verified 03/13/18 22:46 [bee venom (honey bee)] Review of Systems ROS Statement: Those systems with pertinent positive or pertinent negative responses have been documented in the HPI. ROS Other: All systems not noted in ROS Statement are negative. Constitutional: Denies: fever, chills Respiratory: Denies: cough Cardiovascular: Denies: chest pain, palpitations Gastrointestinal: Reports: abdominal pain. Denies: nausea, vomiting, diarrhea, constipation Genitourinary: Reports: abnormal menses. Denies: dysuria, hematuria, discharge , dyspareunia Musculoskeletal: Denies: back pain Skin: Denies: rash Neurological: Denies: headache Past Medical History Past Medical History: Pneumonia History of Any Multi-Drug Resistant Organisms: None Reported Past Surgical History: Section Past Anesthesia/Blood Transfusion Reactions: No Reported Reaction Past Psychological History: Depression Smoking Status: Never smoker Past Alcohol Use History: Occasional Past Drug Use History: None Reported - Past Family History Mother Family Medical History: No Reported History General Exam Limitations: no limitations General appearance: alert, in no apparent distress, obese Head exam: Present: atraumatic, normocephalic Eye exam: Present: normal appearance. Absent: scleral icterus, conjunctival injection ENT exam: Present: normal oropharynx Neck exam: Present: normal inspection Respiratory exam: Present: normal lung sounds bilaterally. Absent: respiratory distress, wheezes, rales, rhonchi, stridor Cardiovascular Exam: Present: regular rate, normal rhythm, normal heart sounds. Absent: systolic murmur, diastolic murmur, rubs, gallop GI/Abdominal exam: Present: soft, normal bowel sounds. Absent: distended, tenderness, guarding, rebound, rigid, mass Extremities exam: Present: normal inspection, normal capillary refill. Absent: pedal edema, calf tenderness Back exam: Present: normal inspection. Absent: CVA tenderness (R), CVA tenderness (L) Neurological exam: Present: alert Skin exam: Present: warm, dry, intact, normal color. Absent: rash Course Vital Signs 03/13/18 22:10 Temperature 98.1 F Pulse Rate 90 Respiratory 16 Rate Blood Pressure 126/82 O2 Sat by Pulse 99 Oximetry Medical Decision Making - Medical Decision Making Patient is 22-year-old woman with low abdominal discomfort and irregularities menstrual cycle. We did send urinalysis and urine test, but the patient states that she cannot wait for these results as she has to pick someone up. The patient declined to have testings for STI at this point, stating that she had this when she was in in January, and that was negative. She states that she has not had any new sexual partners since that time. I did discuss appropriate further care and follow-up and then stressed that she must check the results of the tests tonight either with the follow-up physician or with the my chart. Also reinforced the return parameters. - Lab Data Lab Results 03/13/18 Range/Units 23:26 Urine HCG, Qual Not Detected (Not Detectd) Disposition Clinical Impression: Abdominal pain Disposition: HOME SELF-CARE Condition: Good Instructions: Abdominal Pain (ED) Is patient prescribed a controlled substance at d/c from ED?: No Referrals: None,Stated [Primary Care Provider] - 1-2 days Alonso oCrtes DO [Doctor of Osteopathic Medicine] - 1-2 days
[2018-03-13 23:47] LABS: Appearance,Urine Clear (Clear); Bacteria,Urine Rare /hpf; Bilirubin,Urine Negative (Negative); Blood,Urine Negative (Negative); Color,Urine Yellow; Glucose,Urine (UA) Negative (Negative); Ketones,Urine Negative (Negative); Leukocyte Esterase,Urine Trace (Negative); Mucus,Urine Rare /hpf; Nitrite,Urine Negative (Negative); Protein,Urine Negative (Negative); RBC,Urine 2 /hpf (0-5); Specific Gravity,Urine 1.022 (1.001-1.035); Squamous Epithelial Cell,Urine 2 /hpf (0-4); Urobilinogen,Urine <2.0 mg/dL (<2.0); WBC,Urine 1 /hpf (0-5)
[2018-03-13 23:51] VITALS: BP 117/87; PULSE 87; TEMP 98.2
== END 2018-03-13 23:45 | disposition home or self-care (01) ==
LOC: EC 22:04
DX: R10.9 Unspecified abdominal pain (principal); Z53.29 Procedure and treatment not carried out because of patient's decision for other reasons; Z91.030 Bee allergy status
CPT/HCPCS: 81001; 81025; 99284

== ENCOUNTER 2018-07-02 17:34 | Emergency (ER) | payer OTHER ==
[2018-07-02] MEDS ORDERED: IBUPROFEN 600 MG TAB PO STA (17:59)
[2018-07-02] MEDS ORDERED: ACETAMINOPHEN TAB 325 MG TAB PO STA (17:59)
--- NOTE | 2018-07-02 18:18 | XR ---
EXAMINATION TYPE: XR chest 2V DATE OF EXAM: 07/02/2018 COMPARISON: Prior chest x-ray 12/09/2017 HISTORY: Chest pain TECHNIQUE: Frontal and lateral views of the chest are obtained. FINDINGS: There is improvement in the abnormal density seen on prior exam within the right upper lob e, no pleural effusion or pneumothorax seen. The cardiac silhouette size is within normal limits. The osseous structures are intact. IMPRESSION: Minimal residual density in the right upper lobe may reflect scarring or subsegmental at electasis, developing airspace disease, correlate, follow-up suggested.
--- NOTE | 2018-07-02 18:24 | ED ---
General Adult HPI - General Chief complaint: Chest Pain Stated complaint: Chest pain, headache Source: patient, RN notes reviewed, old records reviewed Mode of arrival: ambulatory Limitations: no limitations - History of Present Illness Initial comments: 22-year-old female patient with no pertinent past medical history presents to ED with 2 days of fevers and chills, nonproductive cough, mild chest pain with coughing, mild amount of nausea, one episode of emesis approximately 2 hours prior to presentation to ED. Patient denies any shortness of breath, denies any chest pain at rest. Patient states that she has a mild upset stomach, however denies any abdominal pain. Patient denies any dysuria. Patient states that she is not , completed her menses approximately 2 days ago. Patient denies all other complaints. Patient reports that she is not on any control, denies any extended travel recently, denies any active cancer, denies any new history of hypercoagulability disorders, denies any personal history of DVT/VTE. Systemic: Pt denies fatigue, fever/chills, rash. Pt denies weakness, night sweats, weight loss. Neuro: Pt denies headache, visual disturbances, syncope or pre-syncope. HEENT: Pt denies ocular discharge or irritation, otalgia, rhinorrhea, pharyngitis or notable lymphadenopathy. Cardiopulmonary: Pt denies chest pain, SOB, heart palpitations, dyspnea on exertion. Abdominal/GI: Pt denies abdominal pain, n/v/d. : Pt denies dysuria, burning w/ urination, frequency/urgency. Denies new onset urinary or bowel incontinence. MSK: Pt denies myalgia, loss of strength or function in extremities. Neuro: Pt denies new onset weakness, paresthesias. - Related Data Previous Rx's Medication Instructions Recorded Acetaminophen Tab [Tylenol Tab] 500 mg PO Q6H PRN #40 tablet 07/02/18 Azithromycin [Zithromax Z-pack] 0 mg PO DIRECTED #6 tab 07/02/18 Ibuprofen [Motrin] 600 mg PO Q6HR PRN #40 day 07/02/18 Allergies Allergy/AdvReac Type Severity Reaction Status Date / Time venom-honey bee Allergy Anaphylaxis Verified 07/02/18 18:07 [bee venom (honey bee)] Review of Systems ROS Statement: Those systems with pertinent positive or pertinent negative responses have been documented in the HPI. ROS Other: All systems not noted in ROS Statement are negative. Past Medical History Past Medical History: Pneumonia History of Any Multi-Drug Resistant Organisms: None Reported Past Surgical History: Section Past Anesthesia/Blood Transfusion Reactions: No Reported Reaction Past Psychological History: Depression Smoking Status: Never smoker Past Alcohol Use History: Occasional Past Drug Use History: None Reported - Past Family History Mother Family Medical History: No Reported History General Exam - General Exam Comments Initial Comments: Constitutional: NAD, AOX3, Pt has pleasant affect. HEENT: NC/AT, trachea midline, neck supple, no lymphadenopathy. Posterior pharynx non erythematous, without exudates. External ears appear normal, without discharge. Mucous membranes moist. Eyes PERRLA, EOM intact. There is no scleral icterus. No pallor noted. Cardiopulmonary: RRR, no murmurs, rubs or gallops, no JVD noted. Lungs CTAB in anterior and posterior landeros. No peripheral edema. Abdominal exam: Abdomen soft and non-distended. Abdomen non-tender to palpation in all 4 quadrants. Bowel sounds active in LLQ. No hepatosplenomegaly. No ecchymosis Neuro: CN II-XII grossly intact. No nuchal rigidity. MSK: No posterior calf tenderness bilaterally, homans sign negative bilaterally. Posterior tibialis and radial pulse +2 bilaterally. Sensation intact in upper and lower extremities. Full active ROM in upper and lower extremities, 5/5 stregnth. Limitations: no limitations Course Vital Signs 07/02/18 17:38 Temperature 100.3 F H Pulse Rate 111 H Respiratory 20 Rate Blood Pressure 142/85 O2 Sat by Pulse 98 Oximetry Medical Decision Making - Medical Decision Making 22-year-old female patient with no pertinent past medical history presents to ED with 2 days of fevers and chills, nonproductive cough, mild chest pain with coughing, mild amount of nausea, one episode of emesis approximately 2 hours prior to presentation to ED. Patient denies any shortness of breath, denies any chest pain at rest. Patient states that she has a mild upset stomach, however denies any abdominal pain. Patient denies any dysuria. Patient states that she is not , completed her menses approximately 2 days ago. Patient denies all other complaints. Patient vital signs displayed mild fever, mild tachycardia, patient administered antipyretic. Patient physical exam did not display acute pathology. Laboratory investigations revealed negative influenza. EKG displayed sinus tachycardia, no concern for acute ischemia. Chest x-ray displayed minimal residual density in right upper lobe which may reflect scarring or subsegmental atelectasis, possibility of developing airspace disease. Patient to be treated with azithromycin for concern for possible pneumonia. Patient will follow-up with her primary care provider 1-2 days. Patient will return to ER if condition worsens in any way. Patient reports that she feels much improved with administration of antipyretic. Patient will use Tylenol and Motrin at home for fevers. She will return to ER if condition worsens in any way. Case discussed with Dr. Murray. - Lab Data Lab Results 07/02/18 Range/Units 17:35 Influenza Type A RNA Not Detected (Not Detectd) Influenza Type B (PCR) Not Detected (Not Detectd) - EKG Data -: EKG Interpreted by Me (and dr murray) EKG Comments: Ventricular rate 108, NE interval 140, QRS 86, QT/QTc 302/404. Sinus tachycardia. No concern for acute ischemia. Disposition Clinical Impression: Community acquired pneumonia, Fever, Cough Disposition: HOME SELF-CARE Condition: Stable Instructions (If sedation given, give patient instructions): Community Acquired Pneumonia (ED) Additional Instructions: Patient to adhere to previously discussed treatment plan and will take medication(s) as directed. Patient to follow up with PCP in 1-2 days. Patient to return to ED if symptoms do not improve. Please take medications as directed. Please follow-up with primary care provider in 1-2 days. Please return to ER if condition worsens in any way. Prescriptions: Ibuprofen [Motrin] 600 mg PO Q6HR PRN #40 day PRN Reason: Pain Acetaminophen Tab [Tylenol Tab] 500 mg PO Q6H PRN #40 tablet PRN Reason: fever Azithromycin [Zithromax Z-pack] 0 mg PO DIRECTED #6 tab Is patient prescribed a controlled substance at d/c from ED?: No Referrals: None,Stated [Primary Care Provider] - 1-2 days [facility] [NON-STAFF] - 1-2 days
[2018-07-02 19:51] VITALS: BP 125/79; RESP 16; TEMP 99.4
[2018-07-02 19:56] VITALS: PULSE 98
== END 2018-07-02 20:07 | disposition home or self-care (01) ==
LOC: EC 17:34
DX: J18.9 Pneumonia, unspecified organism (principal); R00.0 Tachycardia, unspecified; Z91.030 Bee allergy status
CPT/HCPCS: 71046; 87502; 93005; 99285

== ENCOUNTER 2018-08-18 07:36 | Emergency (ER) | payer OTHER ==
[2018-08-18 07:40] VITALS: PULSE 90
[2018-08-18] MEDS ORDERED: IBUPROFEN 600 MG TAB PO STA (08:14)
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
--- NOTE | 2018-08-18 08:24 | XR ---
EXAMINATION TYPE: XR knee complete LT DATE OF EXAM: 08/18/2018 CLINICAL HISTORY: pain TECHNIQUE: Three views of the left knee are obtained. COMPARISON: None. FINDINGS: There is no acute fracture/dislocation. The tri-compartment joint spaces appear within no rmal limits. The overlying soft tissue appears unremarkable. IMPRESSION: There is no acute fracture or dislocation ICD 10 NO FRACTURE, INITIAL EVALUATION
[2018-08-18 09:19] LABS: Appearance,Urine Cloudy (Clear); Bacteria,Urine Occasional /hpf; Bilirubin,Urine Negative (Negative); Blood,Urine Small (Negative); Color,Urine Dark Yellow; Glucose,Urine (UA) Negative (Negative); Ketones,Urine Negative (Negative); Leukocyte Esterase,Urine Large (Negative); Nitrite,Urine Negative (Negative); PH, Urine 5.5 (5.0-8.0); Protein,Urine Trace (Negative); RBC,Urine 12 /hpf (0-5); Specific Gravity,Urine 1.023 (1.001-1.035); Squamous Epithelial Cell,Urine 13 /hpf (0-4); Urobilinogen,Urine <2.0 mg/dL (<2.0); WBC,Urine 100 /hpf (0-5)
[2018-08-18 10:10] VITALS: BP 118/54; RESP 16; TEMP 98.3
== END 2018-08-18 10:10 | disposition home or self-care (01) ==
LOC: EC 07:36
DX: S83.92XA Sprain of unspecified site of left knee, initial encounter (principal); Z91.030 Bee allergy status; X50.1XXA Overexertion from prolonged static or awkward postures, initial encounter
CPT/HCPCS: 81001; 81025; 87086; 99284

== ENCOUNTER 2018-10-06 20:16 | Emergency (ER) | payer OTHER ==
[2018-10-06 21:12] VITALS: RESP 16
[2018-10-06] MEDS ORDERED: ACETAMINOPHEN TAB 500 MG TAB PO STA (21:42)
[2018-10-06] MEDS ORDERED: KETOROLAC 30 MG/ML 1 ML VIAL IM STA (21:43)
[2018-10-06 21:48] LABS: Appearance,Urine Clear (Clear); Bilirubin,Urine Negative (Negative); Blood,Urine Negative (Negative); Color,Urine Yellow; Glucose,Urine (UA) Negative (Negative); Ketones,Urine Negative (Negative); Leukocyte Esterase,Urine Negative (Negative); Nitrite,Urine Negative (Negative); PH, Urine 5.5 (5.0-8.0); Protein,Urine Negative (Negative); Specific Gravity,Urine 1.025 (1.001-1.035); Urobilinogen,Urine <2.0 mg/dL (<2.0)
[2018-10-06] MEDS ORDERED: traMADol 50 MG STARTER PACK 3 TAB BTL PO STA (22:59)
--- NOTE | 2018-10-06 23:00 | ED ---
Abdominal Pain HPI - General Chief Complaint: Abdominal Pain Stated Complaint: Pelvic pain/bleeding Time Seen by Provider: 10/06/18 21:29 Source: patient, RN notes reviewed, old records reviewed Mode of arrival: ambulatory Limitations: no limitations - History of Present Illness Initial Comments: Patient is a 23-year-old female presents with a sharp stabbing left lower quadrant pain, and some vaginal bleeding. She states that symptoms have a few hours after intercourse today. 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 Denies any vomiting or changes in stools. She's had history of ovarian cyst. Patient denies any other complaints. - Related Data Previous Rx's Medication Instructions Recorded Ibuprofen [Motrin] 600 mg PO Q6HR PRN #40 tab 08/18/18 Nitrofurantoin Monohyd/M-Cryst 100 mg PO Q12HR #14 cap 08/18/18 [Macrobid] Ketorolac [Toradol] 10 mg PO Q6HR #15 tab 10/06/18 Allergies Allergy/AdvReac Type Severity Reaction Status Date / Time venom-honey bee Allergy Anaphylaxis Verified 08/18/18 09:16 [bee venom (honey bee)] Review of Systems ROS Statement: Those systems with pertinent positive or pertinent negative responses have been documented in the HPI. ROS Other: All systems not noted in ROS Statement are negative. Past Medical History Past Medical History: Pneumonia Additional Past Medical History / Comment(s): ovarian cyst, History of Any Multi-Drug Resistant Organisms: None Reported Past Surgical History: Section Past Anesthesia/Blood Transfusion Reactions: No Reported Reaction Past Psychological History: Depression Smoking Status: Never smoker Past Alcohol Use History: Occasional Past Drug Use History: None Reported - Past Family History Mother Family Medical History: No Reported History General Exam - General Exam Comments Initial Comments: Physical alert and oriented 23-year-old female. No significant distress. General: Well appearing, well nourished, in no distress. Oriented x 3, normal mood and affect . Ambulating without difficulty. Skin: Good turgor, no rash, unusual bruising or prominent lesions Hair: Normal texture and distribution. HEENT: Head: Normocephalic, atraumatic, no visible or palpable masses, depressions, or scaring. Eyes: Visual acuity intact, conjunctiva clear, sclera non-icteric, EOM intact, PERRL. Ears: EACs clear, TMs translucent & cone of light visualized. hearing intact. Nose: No external lesions, mucosa non-inflamed, septum and turbinates normal Mouth: Mucous membranes moist, no mucosal lesions. Teeth/Gums: No obvious caries or periodontal disease. No gingival inflammation or significant resorption. Pharynx: Mucosa non-inflamed, no tonsillar hypertrophy or exudate Neck: Supple, without lesions, bruits, or adenopathy, thyroid non-enlarged and non-tender Heart: No cardiomegaly or thrills; regular rate and rhythm, no murmur or gallop Lungs: Clear to auscultation and percussion Abdomen: Bowel sounds normal, no tenderness, organomegaly, masses, or hernia Back: Spine normal without deformity or tenderness, no CVA tenderness Extremities: No amputations or deformities, cyanosis, edema or varicosities, peripheral pulses intact Musculoskeletal: Normal gait and station. No misalignment, asymmetry, crepitation, defects, tenderness, masses, effusions, decreased range of motion, instability, atrophy or abnormal strength or tone in the head, neck, spine, ribs, pelvis or extremities. Neurologic: CN 2-12 normal. Sensation to pain, touch, and proprioception normal. DTRs normal in upper and lower extremities. No pathologic reflexes. Psychiatric: Oriented X3, intact recent and remote memory, judgment and insight, normal mood and affect. Pelvic: Vagina and cervix without lesions or discharge. Uterus and adnexa/parametria nontender without masses. No adnexal tenderness. Limitations: no limitations Course Vital Signs 10/06/18 10/06/18 21:08 23:34 Temperature 97.9 F 98 F Pulse Rate 86 82 Respiratory 16 16 Rate Blood Pressure 122/71 126/78 O2 Sat by Pulse 97 98 Oximetry Medical Decision Making - Medical Decision Making The 23-year-old female with lower pelvic pain after having intercourse. States minimal discharge. Pelvic exam showed no significant adnexal tenderness at that time. No significant abdominal pain. She has had a history of ovarian cyst. At this time patient's labwork. He was unremarkable. Patient denies that she likely an ovarian cyst and it burst on her left side there is no further treatment can be done emergently. Discussion is follow-up with an S IRON WORKER. She does have a past schedule within the next month. All questions were answered and return parameters were discussed. - Lab Data Lab Results 10/06/18 10/06/18 10/06/18 Range/Units 21:12 21:12 23:08 Urine Color Yellow Urine Appearance Clear (Clear) Urine pH 5.5 (5.0-8.0) Ur Specific [place] 1.025 (1.001-1.035) Urine Protein Negative (Negative) Urine Glucose (UA) Negative (Negative) Urine Ketones Negative (Negative) Urine Blood Negative (Negative) Urine Nitrite Negative (Negative) Urine Bilirubin Negative (Negative) Urine Urobilinogen <2.0 (<2.0) mg/dL Ur Leukocyte Esterase Negative (Negative) Urine HCG, Qual Not Detected (Not Detectd) Trichomonas Ag (Rapid) Negative (Negative) Disposition Clinical Impression: Pelvic pain Disposition: HOME SELF-CARE Condition: Good Instructions (If sedation given, give patient instructions): Ovarian Cyst (ED) Additional Instructions: She is advised close follow up With primary care physician and S IRON WORKER. Return to emergency department if any alarming signs or symptoms occur. Take Motrin Tylenol for pain. Prescriptions: Ketorolac [Toradol] 10 mg PO Q6HR #15 tab Is patient prescribed a controlled substance at d/c from ED?: No Referrals: None,Stated [Primary Care Provider] - 1-2 days Karina Castano MD [STAFF PHYSICIAN] - 1-2 days Time of Disposition: 22:58
[2018-10-06 23:56] VITALS: BP 126/78; PULSE 82; TEMP 98
[2018-10-09 12:49] LABS: N. gonorrhoeae,PCR Negative (Neg,Equiv); Neisseria Source Vagina
[2018-10-09 12:52] LABS: C. trachomatis,PCR Negative (Neg,Equiv); Chlamydia trachomatis Source Vagina
== END 2018-10-06 23:34 | disposition home or self-care (01) ==
LOC: EC 20:16
DX: R10.2 Pelvic and perineal pain (principal); R10.32 Left lower quadrant pain; N93.9 Abnormal uterine and vaginal bleeding, unspecified; Z91.030 Bee allergy status; Z87.42 Personal history of other diseases of the female genital tract
CPT/HCPCS: 81003; 81025; 87808; 87491; 87591; 87070; 87205; 99284; 96372; J1885

== ENCOUNTER 2019-02-24 13:44 | Emergency (ER) | payer OTHER ==
[2019-02-24] MEDS ORDERED: KETOROLAC 30 MG/ML 1 ML VIAL IVP STA (14:05)
[2019-02-24] MEDS ORDERED: SODIUM CHLORIDE 0.9% 1,000 ML IV STA (14:05)
[2019-02-24] MEDS ORDERED: diphenhydrAMINE 50 MG/ML 1 ML VIAL IVP STA (14:06)
[2019-02-24] MEDS ORDERED: ONDANSETRON 4 MG/2 ML VIAL IVP STA (14:06)
--- NOTE | 2019-02-24 14:31 | ED ---
Headache HPI - General Chief Complaint: Headache Stated Complaint: Migraine Time Seen by Provider: 02/24/19 13:53 Mode of arrival: ambulatory Limitations: no limitations - History of Present Illness Initial Comments: Patient is a 23-year-old female presenting with a headache that started this morning. Patient states she has a history of migraines and this feels similar. Patient states he tried to take Tylenol without relief of her symptoms. Patient did feel nauseous earlier today but no longer feels nauseous. Patient denies vomiting, diarrhea, fever, chills, belly pain. Patient denies being . Patient has no other complaints at this time. Patient has no other pertinent past medical history and takes no other medications. Upon arrival to the ER, vital signs are stable. - Related Data Previous Rx's Medication Instructions Recorded Ibuprofen [Motrin] 600 mg PO Q6HR PRN #40 tab 08/18/18 Nitrofurantoin Monohyd/M-Cryst 100 mg PO Q12HR #14 cap 08/18/18 [Macrobid] Ketorolac [Toradol] 10 mg PO Q6HR #15 tab 10/06/18 Allergies Allergy/AdvReac Type Severity Reaction Status Date / Time venom-honey bee Allergy Anaphylaxis Verified 02/24/19 13:49 [bee venom (honey bee)] Review of Systems ROS Statement: Those systems with pertinent positive or pertinent negative responses have been documented in the HPI. ROS Other: All systems not noted in ROS Statement are negative. Past Medical History Past Medical History: Pneumonia Additional Past Medical History / Comment(s): ovarian cyst, History of Any Multi-Drug Resistant Organisms: None Reported Past Surgical History: Section Past Anesthesia/Blood Transfusion Reactions: No Reported Reaction Past Psychological History: Depression Smoking Status: Never smoker Past Alcohol Use History: Occasional Past Drug Use History: None Reported - Past Family History Mother Family Medical History: No Reported History General Exam - General Exam Comments Initial Comments: GENERAL: Well-appearing, well-nourished and in no acute distress. HEAD: Atraumatic, normocephalic. EYES: Pupils equal round and reactive to light, extraocular movements intact, sclera anicteric, conjunctiva are normal. ENT: TMs normal, nares patent, oropharynx clear without exudates. Moist mucous membranes. NECK: Normal range of motion, supple without lymphadenopathy or JVD. LUNGS: Breath sounds clear to auscultation bilaterally and equal. No wheezes rales or rhonchi. HEART: Regular rate and rhythm without murmurs, rubs or gallops. ABDOMEN: Soft, nontender, normoactive bowel sounds. No guarding, no rebound. No masses appreciated. EXTREMITIES: Normal range of motion, no pitting or edema. No clubbing or cyanosis. NEUROLOGICAL: Cranial nerves II through XII grossly intact. Normal speech, normal gait. PSYCH: Normal mood, normal affect. SKIN: Warm, Dry, normal turgor, no rashes or lesions noted. Limitations: no limitations Course Vital Signs 02/24/19 02/24/19 13:45 14:35 Temperature 97.5 F L Pulse Rate 80 Respiratory 18 16 Rate Blood Pressure 105/74 O2 Sat by Pulse 98 Oximetry Medical Decision Making - Medical Decision Making Patient is a 23-year-old female presenting with a headache 1 day. Patient has history of migraines. Vital signs are stable. Exam is unremarkable. Patient was given fluids, Toradol, Benadryl, Zofran. Patient reports improvement in her headache. Patient is stable for discharge at this time. I recommended trial of Excedrin for migraine. Patient will follow with her PCP. Return parameters were discussed with the patient and she verbalized understanding. Case discussed with Dr. Castro. Disposition Clinical Impression: Headache Disposition: HOME SELF-CARE Condition: Stable Instructions (If sedation given, give patient instructions): Acute Headache (ED) Additional Instructions: Please return to the Emergency Department if symptoms worsen or any other concerns. Continue to increase fluid intake. Trial of Excedrin for migraine for future headaches. Follow-up with PCP. Is patient prescribed a controlled substance at d/c from ED?: No Referrals: None,Stated [Primary Care Provider] - 1-2 days
[2019-02-24 14:37] VITALS: RESP 16
[2019-02-24 15:17] VITALS: BP 124/83; PULSE 76; TEMP 96.8
== END 2019-02-24 15:10 | disposition home or self-care (01) ==
LOC: EC 13:44
DX: R51 Headache (principal); R11.0 Nausea; Z91.030 Bee allergy status; Z86.69 Personal history of other diseases of the nervous system and sense organs
CPT/HCPCS: 99283; 96374; 96375 ×2; 96361; J1200; J2405; J1885

== ENCOUNTER 2019-03-17 22:58 | Emergency (ER) | payer OTHER ==
[2019-03-17 23:40] LABS: Appearance,Urine Clear (Clear); Bilirubin,Urine Negative (Negative); Blood,Urine Small (Negative); Color,Urine Yellow; Glucose,Urine (UA) Negative (Negative); Ketones,Urine 1+ (Negative); Leukocyte Esterase,Urine Trace (Negative); Mucus,Urine Rare /hpf; Nitrite,Urine Negative (Negative); Protein,Urine Trace (Negative); RBC,Urine 1 /hpf (0-5); Specific Gravity,Urine 1.035 (1.001-1.035); Squamous Epithelial Cell,Urine 1 /hpf (0-4); Urobilinogen,Urine <2.0 mg/dL (<2.0); WBC,Urine 1 /hpf (0-5)
--- NOTE | 2019-03-18 00:12 | ED ---
Abdominal Pain HPI - General Chief Complaint: Abdominal Pain Stated Complaint: Abdominal Cramping, pgt Time Seen by Provider: 03/17/19 23:09 Source: patient Mode of arrival: ambulatory Limitations: no limitations - History of Present Illness Initial Comments: This patient is 23-year-old woman who presents to be evaluated for suprapubic abdominal cramping. The patient states that the symptoms started 1-2 days ago. She has had mild cramping that is intermittent. She has not noted worsening or relieving factors. The patient did take a test yesterday that was positive. The patient has not had any vaginal discharge or bleeding. MD Complaint: abdominal pain Onset/Timin -: days(s) Location: suprapubic Radiation: none Migration to: no migration Severity: mild Quality: cramping Consistency: intermittent Improves With: nothing Worsens With: nothing - Related Data LMP (females 10-50): 1 month Patient : Yes Previous Rx's Medication Instructions Recorded Ibuprofen [Motrin] 600 mg PO Q6HR PRN #40 tab 08/18/18 Nitrofurantoin Monohyd/M-Cryst 100 mg PO Q12HR #14 cap 08/18/18 [Macrobid] Ketorolac [Toradol] 10 mg PO Q6HR #15 tab 10/06/18 Allergies Allergy/AdvReac Type Severity Reaction Status Date / Time venom-honey bee Allergy Anaphylaxis Verified 03/23/19 17:19 [bee venom (honey bee)] Review of Systems ROS Statement: Those systems with pertinent positive or pertinent negative responses have been documented in the HPI. ROS Other: All systems not noted in ROS Statement are negative. Constitutional: Denies: fever, chills Respiratory: Denies: cough, dyspnea Cardiovascular: Denies: chest pain, palpitations, edema Gastrointestinal: Reports: abdominal pain. Denies: nausea, vomiting, diarrhea, constipation Genitourinary: Denies: dysuria, hematuria, discharge, abnormal menses Musculoskeletal: Denies: back pain Skin: Denies: rash Neurological: Denies: headache, weakness, numbness Past Medical History Past Medical History: Pneumonia Additional Past Medical History / Comment(s): ovarian cyst, History of Any Multi-Drug Resistant Organisms: None Reported Past Surgical History: Section Past Anesthesia/Blood Transfusion Reactions: No Reported Reaction Past Psychological History: Depression Smoking Status: Never smoker Past Alcohol Use History: Occasional Past Drug Use History: None Reported - Past Family History Mother Family Medical History: No Reported History General Exam Limitations: no limitations General appearance: alert, in no apparent distress Head exam: Present: atraumatic, normocephalic Eye exam: Present: normal appearance Respiratory exam: Present: normal lung sounds bilaterally. Absent: respiratory distress, wheezes, rales, rhonchi, stridor Cardiovascular Exam: Present: regular rate, normal rhythm, normal heart sounds. Absent: systolic murmur, diastolic murmur, rubs, gallop GI/Abdominal exam: Present: soft, normal bowel sounds. Absent: distended, tenderness, guarding, rebound, rigid, mass, pulsatile mass, hernia External exam: Present: other (Patient declined) Extremities exam: Present: normal inspection, normal capillary refill. Absent: pedal edema, calf tenderness Back exam: Present: normal inspection. Absent: CVA tenderness (R), CVA tenderness (L) Neurological exam: Present: alert Skin exam: Present: warm, dry, intact, normal color. Absent: rash Course Vital Signs 03/17/19 03/18/19 23:02 00:28 Temperature 98.3 F 98 F Pulse Rate 94 80 Respiratory 20 18 Rate Blood Pressure 129/88 125/79 O2 Sat by Pulse 98 98 Oximetry Medical Decision Making - Medical Decision Making Patient is a 23-year-old woman with mild suprapubic cramping found to have early by quantitative hCG. Discussed having pelvic ultrasound, but with the hCG level so low suspect this would be below the threshold of detection. 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 At this point do not believe she has ectopic but will have serial hCG and then. Ultrasound Discussed appropriate follow-up as well as return parameters. - Lab Data Lab Results 03/17/19 03/17/19 03/17/19 Range/Units 23:29 23:29 23:29 HCG, Quant 23.9 mIU/mL Urine Color Yellow Urine Appearance Clear (Clear) Urine pH 5.0 (5.0-8.0) Ur Specific [place] 1.035 (1.001-1.035) Urine Protein Trace H (Negative) Urine Glucose (UA) Negative (Negative) Urine Ketones 1+ H (Negative) Urine Blood Small H (Negative) Urine Nitrite Negative (Negative) Urine Bilirubin Negative (Negative) Urine Urobilinogen <2.0 (<2.0) mg/dL Ur Leukocyte Esterase Trace H (Negative) Urine RBC 1 (0-5) /hpf Urine WBC 1 (0-5) /hpf Ur Squamous Epith Cells 1 (0-4) /hpf Urine Mucus Rare H (None) /hpf Blood Type O Positive Blood Type Recheck O Pos Bld Type Recheck Status No Disposition Clinical Impression: Threatened miscarriage Disposition: HOME SELF-CARE Condition: Good Instructions (If sedation given, give patient instructions): (ED) Is patient prescribed a controlled substance at d/c from ED?: No Referrals: None,Stated [Primary Care Provider] - 1-2 days Karina Castano MD [STAFF PHYSICIAN] - 1-2 days
[2019-03-18 00:28] VITALS: BP 125/79; PULSE 80; RESP 18; TEMP 98
== END 2019-03-18 00:29 | disposition home or self-care (01) ==
LOC: EC 22:58
DX: O20.0 Threatened abortion (principal); Z3A.00 Weeks of gestation of pregnancy not specified; Z91.030 Bee allergy status
CPT/HCPCS: 36415; 81001; 84702; 86900; 86901; 99284

== ENCOUNTER 2019-03-23 17:16 | Emergency (ER) | payer OTHER ==
[2019-03-23 17:24] VITALS: RESP 18; TEMP 98
[2019-03-23 18:25] LABS: Basophils % (A) 0 %; Eosinophils # (A) 0.1 k/uL (0-0.7); Eosinophils % (A) 1 %; HGB 12.8 gm/dL (11.4-16.0); Lymphocytes # (A) 1.2 k/uL (1.0-4.8); Lymphocytes % (A) 26 %; MCH 31.1 pg (25.0-35.0); MCHC 34.7 g/dL (31.0-37.0); MCV 89.7 fL (80.0-100.0); Mean Platelet Volume 7.5; Monocytes # (A) 0.4 k/uL (0-1.0); Monocytes % (A) 8 %; Neutrophils # (A) 2.9 k/uL (1.3-7.7); Neutrophils % (A) 62 %; Platelet Count 236 k/uL (150-450); RBC 4.12 m/uL (3.80-5.40); RDW 12.5 % (11.5-15.5); WBC 4.7 k/uL (3.8-10.6)
[2019-03-23 18:33] LABS: INR 0.9 (<1.2); Partial Thromboplastin Time 25.4 sec (22.0-30.0)
[2019-03-23 18:34] LABS: ALT 16 U/L (4-34); AST 21 U/L (14-36); African American GFR (CKD) >90 (>60 ml/min/1.73 sqM); Alkaline Phosphatase 71 U/L (38-126); Anion Gap 7 mmol/L; Blood Urea Nitrogen 7 mg/dL (7-17); Carbon Dioxide 25 mmol/L (22-30); Chloride 108 mmol/L (98-107); Glucose 109 mg/dL (74-99); Non-African American GFR(CKD) >90 (>60 ml/min/1.73 sqM); Potassium 3.3 mmol/L (3.5-5.1); Sodium 140 mmol/L (137-145); Total Bilirubin 0.3 mg/dL (0.2-1.3); Total Protein 6.9 g/dL (6.3-8.2)
[2019-03-23 19:11] LABS: Appearance,Urine Clear (Clear); Bilirubin,Urine Negative (Negative); Blood,Urine Negative (Negative); Color,Urine Yellow; Glucose,Urine (UA) Negative (Negative); Ketones,Urine Trace (Negative); Leukocyte Esterase,Urine Negative (Negative); Nitrite,Urine Negative (Negative); PH, Urine 6.5 (5.0-8.0); Protein,Urine Trace (Negative)
--- NOTE | 2019-03-23 19:14 | US ---
EXAMINATION TYPE: Transabdominal DATE OF EXAM: 03/23/2019 6:45 PM COMPARISON: NONE CLINICAL HISTORY: pain. cramping with EXAM PERFORMED: Transvaginal (TV) and Transabdominal (TA) EXAM MEASUREMENTS: GESTATIONAL AGE / DATING Physician Established: Not yet established Dates by LMP: 02/15/2019 (5 weeks/1 days) EDC: 11/22/2019 Dates by First Scan: No previous this is first scan Dates by Current Scan for: No IUP seen at this time MATERNAL ANATOMY Uterus: 8.3 x 4.7 x 5.9 cm Right Ovary: 2.8 x 2.9 x 3.3 cm Left Ovary: 3.8 x 3.7 x 3.2 cm Post CDS / Adnexa: small to moderate amount of free fluid Presence of corpus luteal cyst: mixed lesion left ovary measures 2.4 x 2.6 x 2.3 cm could represent c orpus luteal cyst. GESTATION / SURVEY Unable to appreciate gestational sac in thickened endometrium. Date of LMP: 02/15/2019 Beta HcG (if available): not available at time of exam No sign of an IUP at this time. Recommend serial beta HcG. IMPRESSION: Empty uterus. No adnexal mass. No sign of ectopic .
--- NOTE | 2019-03-23 20:00 | ED ---
General Adult HPI - General Chief complaint: Recheck/Abnormal Lab/Rx Stated complaint: poss miscarriage Time Seen by Provider: 03/23/19 17:20 Source: patient Mode of arrival: ambulatory Limitations: no limitations - History of Present Illness Initial comments: The patient is a 23-year-old female with no past medical history who presents emergency room with reported left lower quadrant abdominal pain. The patient is currently 5 weeks . States that she has been suffering from left lower quadrant pain for the past several days. She was seen in the emergency room on March 17. Laboratory studies demonstrated a beta Quant of 23. She was discharged and told to follow up with OB. She has appointment Dr. Castano on the . States that her pain reoccurred last night and was worsened today. She did take some Tylenol without relief. She denies dysuria, hematuria or difficulty voiding. Denies any abnormal vaginal bleeding. Does admit to vaginal discharge. Sexually active with one partner. Denies constipation, diarrhea, melanotic stools or hematochezia. Last menstrual cycle was on February 15. Denies any back or flank pain. No nausea or vomiting. No fevers or chills. History of 1 spontaneous miscarriage at approximately 4 weeks. Her term was born via . There are no other alleviating, precipitating or modifying factors - Related Data Previous Rx's Medication Instructions Recorded Ibuprofen [Motrin] 600 mg PO Q6HR PRN #40 tab 08/18/18 Nitrofurantoin Monohyd/M-Cryst 100 mg PO Q12HR #14 cap 08/18/18 [Macrobid] Ketorolac [Toradol] 10 mg PO Q6HR #15 tab 10/06/18 Allergies Allergy/AdvReac Type Severity Reaction Status Date / Time venom-honey bee Allergy Anaphylaxis Verified 03/23/19 17:19 [bee venom (honey bee)] Review of Systems ROS Statement: Those systems with pertinent positive or pertinent negative responses have been documented in the HPI. ROS Other: All systems not noted in ROS Statement are negative. Past Medical History Past Medical History: Pneumonia Additional Past Medical History / Comment(s): ovarian cyst, History of Any Multi-Drug Resistant Organisms: None Reported Past Surgical History: Section Past Anesthesia/Blood Transfusion Reactions: No Reported Reaction Past Psychological History: No Psychological Hx Reported, Depression Smoking Status: Never smoker Past Alcohol Use History: Occasional Past Drug Use History: None Reported - Past Family History Mother Family Medical History: No Reported History General Exam Limitations: no limitations General appearance: alert, in no apparent distress Head exam: Present: atraumatic, normocephalic, normal inspection Eye exam: Present: normal appearance, PERRL, EOMI. Absent: scleral icterus, conjunctival injection, periorbital swelling ENT exam: Present: normal exam, mucous membranes moist Neck exam: Present: normal inspection. Absent: tenderness, meningismus, lymphadenopathy Respiratory exam: Present: normal lung sounds bilaterally. Absent: respiratory distress, wheezes, rales, rhonchi, stridor Cardiovascular Exam: Present: regular rate, normal rhythm, normal heart sounds. Absent: systolic murmur, diastolic murmur, rubs, gallop, clicks GI/Abdominal exam: Present: soft, tenderness (left lower quadrant), normal bowel sounds. Absent: distended, guarding, rebound, rigid External exam: Present: normal external exam. Absent: erythema, swelling Speculum exam: Present: normal speculum exam, vaginal discharge, cervical discharge. Absent: erythema, vaginal bleeding Extremities exam: Present: normal inspection, full ROM, normal capillary refill. Absent: tenderness, pedal edema, joint swelling, calf tenderness Back exam: Present: normal inspection Neurological exam: Present: alert, oriented X3, CN II-XII intact Psychiatric exam: Present: normal affect, normal mood Skin exam: Present: warm, dry, intact, normal color. Absent: rash Course Vital Signs 03/23/19 03/23/19 17:20 20:23 Temperature 98.0 F Pulse Rate 101 H 86 Respiratory 18 Rate Blood Pressure 125/81 141/80 O2 Sat by Pulse 97 99 Oximetry Medical Decision Making - Medical Decision Making Upon arrival the patient was placed into room 21. A thorough history and physical exam was performed. I recommended laboratory studies, urinalysis and an ultrasound. Laboratory studies demonstrated a normal CBC with hemoglobin of 12.8. Coags are normal. CMP shows a potassium of 3.3. Beta Quant is 552. Urinalysis shows trace protein and ketones. Obstetrics ultrasound demonstrates no gestational sac with a thickened endometrium. There is a mixed lesion on the left ovary which measures 2.4 x 2.6 x 2.3 cm. I performed a pelvic exam. Cervix is visualized closed, without lesions. No vaginal bleeding. Mild vaginal discharge. I did offer to take samples. Patient was swabbed for chlamydia and gonorrhea. I discussed diagnosis, differential treatment options. Because the patient does have a mixed lesion on her left ovary where her pain is without identifiable intrauterine I discussed the case with Dr. 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 Dr. Castano does recommend a repeat beta Quant to be performed on Tuesday night. The patient is given a prescription and instructed to come back to the emergency department for lab draw. The results will be CC Dr. Castano. She also recommended the patient call the office on Tuesday and make an appointment to follow up with her then. The patient is given these instructions. If she has any new or worsening symptoms return to the emergency room. The patient was in agreement with the treatment plan and discharged home in stable condition - Lab Data Result diagrams: 03/23/19 18:13 03/23/19 18:13 Lab Results 03/23/19 03/23/19 03/23/19 Range/Units 18:13 18:13 18:13 WBC 4.7 (3.8-10.6) k/uL RBC 4.12 (3.80-5.40) m/uL Hgb 12.8 (11.4-16.0) gm/dL Hct 37.0 (34.0-46.0) % MCV 89.7 (80.0-100.0) fL MCH 31.1 (25.0-35.0) pg MCHC 34.7 (31.0-37.0) g/dL RDW 12.5 (11.5-15.5) % Plt Count 236 (150-450) k/uL Neutrophils % 62 % Lymphocytes % 26 % Monocytes % 8 % Eosinophils % 1 % Basophils % 0 % Neutrophils # 2.9 (1.3-7.7) k/uL Lymphocytes # 1.2 (1.0-4.8) k/uL Monocytes # 0.4 (0-1.0) k/uL Eosinophils # 0.1 (0-0.7) k/uL Basophils # 0.0 (0-0.2) k/uL PT 10.0 (9.0-12.0) sec INR 0.9 (<1.2) APTT 25.4 (22.0-30.0) sec Sodium 140 (137-145) mmol/L Potassium 3.3 L (3.5-5.1) mmol/L Chloride 108 H (98-107) mmol/L Carbon Dioxide 25 (22-30) mmol/L Anion Gap 7 mmol/L BUN 7 (7-17) mg/dL Creatinine 0.66 (0.52-1.04) mg/dL Est GFR (CKD-EPI)AfAm >90 (>60 ml/min/1.73 sqM) Est GFR (CKD-EPI)NonAf >90 (>60 ml/min/1.73 sqM) Glucose 109 H (74-99) mg/dL Calcium 9.0 (8.4-10.2) mg/dL Total Bilirubin 0.3 (0.2-1.3) mg/dL AST 21 (14-36) U/L ALT 16 (4-34) U/L Alkaline Phosphatase 71 (38-126) U/L Total Protein 6.9 (6.3-8.2) g/dL Albumin 4.0 (3.5-5.0) g/dL HCG, Quant 552.0 mIU/mL Urine Color Urine Appearance (Clear) Urine pH (5.0-8.0) Ur Specific [place] (1.001-1.035) Urine Protein (Negative) Urine Glucose (UA) (Negative) Urine Ketones (Negative) Urine Blood (Negative) Urine Nitrite (Negative) Urine Bilirubin (Negative) Urine Urobilinogen (<2.0) mg/dL Ur Leukocyte Esterase (Negative) Chlamydia Source Chlamydia DNA (PCR) (Neg,Equiv) N. gonorrhoeae Source N.gonorrhoeae DNA Probe (Neg,Equiv) 03/23/19 03/23/19 03/23/19 Range/Units 18:54 20:30 20:30 WBC (3.8-10.6) k/uL RBC (3.80-5.40) m/uL Hgb (11.4-16.0) gm/dL Hct (34.0-46.0) % MCV (80.0-100.0) fL MCH (25.0-35.0) pg MCHC (31.0-37.0) g/dL RDW (11.5-15.5) % Plt Count (150-450) k/uL Neutrophils % % Lymphocytes % % Monocytes % % Eosinophils % % Basophils % % Neutrophils # (1.3-7.7) k/uL Lymphocytes # (1.0-4.8) k/uL Monocytes # (0-1.0) k/uL Eosinophils # (0-0.7) k/uL Basophils # (0-0.2) k/uL PT (9.0-12.0) sec INR (<1.2) APTT (22.0-30.0) sec Sodium (137-145) mmol/L Potassium (3.5-5.1) mmol/L Chloride (98-107) mmol/L Carbon Dioxide (22-30) mmol/L Anion Gap mmol/L BUN (7-17) mg/dL Creatinine (0.52-1.04) mg/dL Est GFR (CKD-EPI)AfAm (>60 ml/min/1.73 sqM) Est GFR (CKD-EPI)NonAf (>60 ml/min/1.73 sqM) Glucose (74-99) mg/dL Calcium (8.4-10.2) mg/dL Total Bilirubin (0.2-1.3) mg/dL AST (14-36) U/L ALT (4-34) U/L Alkaline Phosphatase (38-126) U/L Total Protein (6.3-8.2) g/dL Albumin (3.5-5.0) g/dL HCG, Quant mIU/mL Urine Color Yellow Urine Appearance Clear (Clear) Urine pH 6.5 (5.0-8.0) Ur Specific [place] 1.030 (1.001-1.035) Urine Protein Trace H (Negative) Urine Glucose (UA) Negative (Negative) Urine Ketones Trace H (Negative) Urine Blood Negative (Negative) Urine Nitrite Negative (Negative) Urine Bilirubin Negative (Negative) Urine Urobilinogen 3.0 (<2.0) mg/dL Ur Leukocyte Esterase Negative (Negative) Chlamydia Source Endocervical Chlamydia DNA (PCR) Negative (Neg,Equiv) N. gonorrhoeae Source Endocervical N.gonorrhoeae DNA Probe Negative (Neg,Equiv) Disposition Clinical Impression: Positive test, Pelvic pain Disposition: HOME SELF-CARE Condition: Stable Instructions (If sedation given, give patient instructions): (ED) Additional Instructions: Please come in on Tuesday night to have your beta Quant drawn. Call Dr. Castano's office on Tuesday for an appointment. Return to the emergency department for any new or worsening symptoms Is patient prescribed a controlled substance at d/c from ED?: No Referrals: None,Stated [Primary Care Provider] - 1-2 days Time of Disposition: 20:04
[2019-03-23 20:23] VITALS: BP 141/80; PULSE 86
[2019-03-25 13:36] LABS: C. trachomatis,PCR Negative (Neg,Equiv); Chlamydia trachomatis Source Endocervical
[2019-03-25 14:52] LABS: N. gonorrhoeae,PCR Negative (Neg,Equiv); Neisseria Source Endocervical
== END 2019-03-23 20:28 | disposition home or self-care (01) ==
LOC: EC 17:16
DX: O99.89 Other specified diseases and conditions complicating pregnancy, childbirth and the puerperium (principal); R10.2 Pelvic and perineal pain; Z32.01 Encounter for pregnancy test, result positive; R80.9 Proteinuria, unspecified; R82.4 Acetonuria; N83.8 Other noninflammatory disorders of ovary, fallopian tube and broad ligament; N89.8 Other specified noninflammatory disorders of vagina; Z91.030 Bee allergy status; Z87.59 Personal history of other complications of pregnancy, childbirth and the puerperium; Z98.890 Other specified postprocedural states; Z3A.00 Weeks of gestation of pregnancy not specified
CPT/HCPCS: 36415; 76801; 76817; 80053; 81003; 84702; 85025; 85610; 85730; 87491; 87591; 99284

== ENCOUNTER → 2019-03-25 | Outpatient (CLI) | payer OTHER | END | disposition home or self-care (01) | LOC: LABMAIN 11:19 | PROVIDERS: ATTEND Emergency Medicine | DX: O99.89 Other specified diseases and conditions complicating pregnancy, childbirth and the puerperium (principal); R10.2 Pelvic and perineal pain | CPT/HCPCS: 36415; 84702 ==

== ENCOUNTER 2019-05-06 15:08 | Emergency (ER) | payer OTHER ==
[2019-05-06 15:14] VITALS: RESP 18
--- NOTE | 2019-05-06 15:31 | ED ---
Female Urogenital HPI - General Chief complaint: Vaginal Bleeding Stated complaint: 11 wks and spotting Time Seen by Provider: 05/06/19 15:17 Source: patient Mode of arrival: ambulatory Limitations: no limitations - History of Present Illness Initial comments: Patient is a 23-year-old female presenting to the emergency Department with complaints of vaginal spotting that happened twice today. Patient is currently 11 weeks . Patient is . Her FLY SETTER is Dr. Castano. She denies any abdominal pain. She is having nausea throughout this . No vomiting no fevers. She has no other complaints at this time. Upon arrival to the ER her vitals are stable. Last Menstrual Period: 02/15/19 - Related Data Previous Rx's Medication Instructions Recorded Ibuprofen [Motrin] 600 mg PO Q6HR PRN #40 tab 08/18/18 Nitrofurantoin Monohyd/M-Cryst 100 mg PO Q12HR #14 cap 08/18/18 [Macrobid] Ketorolac [Toradol] 10 mg PO Q6HR #15 tab 10/06/18 Cephalexin [Keflex] 500 mg PO BID 5 Days #10 cap 05/06/19 Allergies Allergy/AdvReac Type Severity Reaction Status Date / Time venom-honey bee Allergy Anaphylaxis Verified 05/06/19 15:14 [bee venom (honey bee)] Review of Systems ROS Statement: Those systems with pertinent positive or pertinent negative responses have been documented in the HPI. ROS Other: All systems not noted in ROS Statement are negative. Past Medical History Past Medical History: Pneumonia Additional Past Medical History / Comment(s): ovarian cyst, History of Any Multi-Drug Resistant Organisms: None Reported Past Surgical History: Section Past Anesthesia/Blood Transfusion Reactions: No Reported Reaction Past Psychological History: No Psychological Hx Reported, Depression Smoking Status: Never smoker Past Alcohol Use History: None Reported Past Drug Use History: None Reported - Past Family History Mother Family Medical History: No Reported History General Exam - General Exam Comments Initial Comments: GENERAL: Well-appearing, well-nourished and in no acute distress. HEAD: Atraumatic, normocephalic. EYES: Pupils equal round and reactive to light, extraocular movements intact, sclera anicteric, conjunctiva are normal. ENT: TMs normal, nares patent, oropharynx clear without exudates. Moist mucous membranes. NECK: Normal range of motion, supple without lymphadenopathy or JVD. LUNGS: Breath sounds clear to auscultation bilaterally and equal. No wheezes rales or rhonchi. HEART: Regular rate and rhythm without murmurs, rubs or gallops. ABDOMEN: Soft, nontender, normoactive bowel sounds. No guarding, no rebound. No masses appreciated. : Deferred EXTREMITIES: Normal range of motion, no pitting or edema. No clubbing or cyanosis. NEUROLOGICAL: Cranial nerves II through XII grossly intact. Normal speech, normal gait. PSYCH: Normal mood, normal affect. SKIN: Warm, Dry, normal turgor, no rashes or lesions noted. Limitations: no limitations Course Vital Signs 05/06/19 05/06/19 15:12 17:22 Temperature 97.9 F 98.0 F Pulse Rate 98 95 Respiratory 18 18 Rate Blood Pressure 121/71 124/72 O2 Sat by Pulse 98 99 Oximetry Medical Decision Making - Medical Decision Making Patient is a 23-year-old female presenting with mild vaginal spotting that happened twice today. She is currently 11 weeks , FLY SETTER is Dr. Castano. . No abdominal pain, no fevers. Ultrasound reveals a single live IUP with age of 11 weeks. No acute abnormality seen. Heart rate is 152. Urine shows a mild bacteria. Patient will be treated for asymptomatic bacteremia. Patient is in agreement with this plan of care. She'll follow-up with Dr. Castano as normal. Return parameters were discussed with the patient she verbalized understanding. Case discussed with Dr. Faustin. - Lab Data Lab Results 05/06/19 Range/Units 16:05 Urine Color Yellow Urine Appearance Cloudy H (Clear) Urine pH 5.5 (5.0-8.0) Ur Specific [place] 1.025 (1.001-1.035) Urine Protein Trace H (Negative) Urine Glucose (UA) Negative (Negative) Urine Ketones Negative (Negative) Urine Blood Moderate H (Negative) Urine Nitrite Negative (Negative) Urine Bilirubin Negative (Negative) Urine Urobilinogen <2.0 (<2.0) mg/dL Ur Leukocyte Esterase Large H (Negative) Urine RBC 74 H (0-5) /hpf Urine WBC 9 H (0-5) /hpf Ur Squamous Epith Cells 9 H (0-4) /hpf Urine Bacteria Rare H (None) /hpf Urine Mucus Occasional H (None) /hpf Disposition Clinical Impression: Vaginal bleeding during , UTI (urinary tract infection) during Disposition: HOME SELF-CARE Condition: Stable Instructions (If sedation given, give patient instructions): Non-Threatening First Trimester Vaginal Bleed (ED) Additional Instructions: Please return to the Emergency Department if symptoms worsen or any other concerns. Follow-up with FLY SETTER as discussed. Take antibiotic as prescribed. Prescriptions: Cephalexin [Keflex] 500 mg PO BID 5 Days #10 cap Is patient prescribed a controlled substance at d/c from ED?: No Referrals: None,Stated [Primary Care Provider] - 1-2 days Karina Castano MD [STAFF PHYSICIAN] - 1-2 days
--- NOTE | 2019-05-06 16:18 | US ---
EXAMINATION TYPE: Transabdominal DATE OF EXAM: 05/06/2019 4:01 PM COMPARISON: NONE CLINICAL HISTORY: mild spotting. spotting today EXAM PERFORMED: Transabdominal (TA) EXAM MEASUREMENTS: GESTATIONAL AGE / DATING Physician Established: (11 weeks/0 days) EDC: 11/25/19 Dates by LMP: (11 weeks/3 days) EDC: 11/22/19 Dates by First Scan: Dates by Current Scan for: (11 weeks/1 days) EDC: 11/24/19 MATERNAL ANATOMY Uterus: 10.7 x 6.4 x 7.7cm Right Ovary: 3.5 x 2.4 x 2.5cm Left Ovary: 3.5 x 1.5 x 2.4cm Post CDS / Adnexa: wnl Presence of free fluid: no GESTATION / SURVEY CRL: 4.2cm (11 weeks/1 days) Yolk Sac (normal less than 6mm): 0.4cm Heart Rate: 152 bpm Rhythm: Normal IUP: Live IUP Date of LMP: unknown Beta HcG (if available): Not available at this time Cystic areas right ovary = 1.8cm and 1.6cm. IMPRESSION: Single live intrauterine with a sonographic age of 11wks/1day and estimated da te of delivery of 11/24/19
[2019-05-06 16:28] LABS: Appearance,Urine Cloudy (Clear); Bacteria,Urine Rare /hpf; Bilirubin,Urine Negative (Negative); Blood,Urine Moderate (Negative); Color,Urine Yellow; Glucose,Urine (UA) Negative (Negative); Ketones,Urine Negative (Negative); Leukocyte Esterase,Urine Large (Negative); Mucus,Urine Occasional /hpf; Nitrite,Urine Negative (Negative); PH, Urine 5.5 (5.0-8.0); Protein,Urine Trace (Negative); RBC,Urine 74 /hpf (0-5); Specific Gravity,Urine 1.025 (1.001-1.035); Squamous Epithelial Cell,Urine 9 /hpf (0-4); Urobilinogen,Urine <2.0 mg/dL (<2.0); WBC,Urine 9 /hpf (0-5)
[2019-05-06 17:23] VITALS: BP 124/72; PULSE 95; TEMP 98
== END 2019-05-06 17:23 | disposition home or self-care (01) ==
LOC: EC 15:08
DX: O20.9 Hemorrhage in early pregnancy, unspecified (principal); O23.41 Unspecified infection of urinary tract in pregnancy, first trimester; Z3A.11 11 weeks gestation of pregnancy; Z91.030 Bee allergy status
CPT/HCPCS: 76801; 81001; 99284

== ENCOUNTER 2019-11-16 06:10 | Inpatient (IN) | payer OTHER ==
[2019-11-15 12:03] VITALS: BMI 45.0
[2019-11-16] MEDS ORDERED: CITRIC ACID-SODIUM CITRATE 15 ML CUP PO ONE (06:15)
[2019-11-16] MEDS ORDERED: LACTATED RINGERS 1,000 ML IV ONE (06:15)
[2019-11-16] MEDS ORDERED: LACTATED RINGERS 1,000 ML IV SCH ×2 (06:15→09:00)
[2019-11-16] MEDS ORDERED: ceFAZolin 3 GM in SODIUM CHLORIDE 0.9% 100 ML IVPB ONE (06:30)
[2019-11-16 07:12] LABS: Basophils % (A) 0 %; Eosinophils # (A) 0.1 k/uL (0-0.7); Eosinophils % (A) 1 %; HCT 37.3 % (34.0-46.0); HGB 11.9 gm/dL (11.4-16.0); Lymphocytes # (A) 2.4 k/uL (1.0-4.8); Lymphocytes % (A) 23 %; MCH 29.7 pg (25.0-35.0); MCHC 31.9 g/dL (31.0-37.0); MCV 93.1 fL (80.0-100.0); Mean Platelet Volume 7.6; Monocytes # (A) 0.5 k/uL (0-1.0); Monocytes % (A) 5 %; Neutrophils # (A) 7.3 k/uL (1.3-7.7); Neutrophils % (A) 69 %; Platelet Count 206 k/uL (150-450); RBC 4.01 m/uL (3.80-5.40); RDW 13.9 % (11.5-15.5); WBC 10.5 k/uL (3.8-10.6)
[2019-11-16] MEDS ORDERED: PHENYLEPHRINE-0.9% NACL SYG 1 MG/10 ML SYRINGE ONE (07:49)
[2019-11-16] MEDS ORDERED: ONDANSETRON 4 MG/2 ML VIAL ONE (07:49)
[2019-11-16] MEDS ORDERED: MORPHINE SULFATE (PF) 0.3 MG/0.3 ML SYR ONE (07:49)
[2019-11-16] MEDS ORDERED: OXYTOCIN 10 UNIT/ML 1 ML VIAL ONE (07:49)
--- NOTE | 2019-11-16 07:59 | P.HPOB ---
History of Present Illness H&P Date: 11/16/19 This is a 24-year-old white female 2 para 1001 status post previous C- section, presenting today at 39 and one sevenths weeks with an EDC of 11/22/2019, for repeat low transverse section. Tubal ligation has been discussed and is declined. Fetus is been active throughout the . She denies vaginal bleeding or fluid leakage up to this point. Past medical history is essentially unremarkable. Past surgical history is significant for low transverse section in 2016 for arrest of descent in the second stage of labor, 7 lbs. 5 oz. . Current medications vitamins daily. ALLERGIES none known. Family history significant for spina bifida, breast cancer, and cirrhosis. Social history patient has never been a smoker, she denies alcohol or drug use. She works at [employer], she is single, father of the baby is present and involved. history blood type is O+, rubella status immune. Urine culture, VDRL, gonorrhea and chlamydia cultures, hepatitis B surface antigen, HIV testing, group B strep cultures all negative. Initial urine drug screen positive for marijuana. On exam patient is 5 foot 7 inches, 292 pounds, blood pressure 131/72. General physical exam is within normal limits. Cervix is long, closed, posterior. heart rate is consistent with reactive NST. Fundal height is consistent with 40 cm. Extremities reveal no edema. Chest is clear in all landeros. Impression: 39 and one sevenths weeks intrauterine , previous section for arrest of descent, presenting today for repeat low transverse section Plan we will proceed with repeat low transverse section. Tubal ligation has been offered and declined. All risks, benefits and alternatives of been discussed in detail. All questions answered. Review of Systems Constitutional: Reports as per HPI Past Medical History Past Medical History: Pneumonia Additional Past Medical History / Comment(s): ovarian cyst, History of Any Multi-Drug Resistant Organisms: None Reported Past Surgical History: Section Past Anesthesia/Blood Transfusion Reactions: No Reported Reaction Past Psychological History: No Psychological Hx Reported Smoking Status: Never smoker Past Alcohol Use History: None Reported Past Drug Use History: None Reported - Past Family History Mother Family Medical History: No Reported History Medications and Allergies Home Medications Medication Instructions Recorded Confirmed Type Ferrous Sulfate [Feosol] 325 mg PO DAILY 11/15/19 11/15/19 History Pnv No.95/Ferrous Fum/Folic AC 1 each PO DAILY 11/15/19 11/15/19 History [ Multivitamin Tablet] Allergies Allergy/AdvReac Type Severity Reaction Status Date / Time venom-honey bee Allergy Anaphylaxis Verified 11/16/19 06:14 [bee venom (honey bee)] Exam Vital Signs Temp Pulse Resp BP Pulse Ox 11/16/19 06:55 98.5 F 117 H 18 131/72 98 Intake and Output 11/15/19 11/16/19 11/16/19 22:59 06:59 14:59 Other: Weight 132.449 kg See dictation under HPI Results Result Diagrams: 11/16/19 06:27 Assessment and Plan Assessment: 39 and one sevenths week intrauterine , here for repeat low transverse section. All signs reassuring. Tubal ligation declined. Plan: For repeat low transverse section. All risks, benefits, alternatives discussed. All questions answered. Time with Patient: Less than 30
[2019-11-16] MEDS ORDERED: HYDROmorphone 0.5 MG/0.5 ML SYRINGE IVP PRN (08:31)
[2019-11-16] MEDS ORDERED: NALBUPHINE 10 MG/ML (1 ML AMP) IV PRN (08:31)
[2019-11-16] MEDS ORDERED: NALOXONE 0.4 MG/ML 1 ML VIAL IV PRN ×2 (08:31→08:50)
[2019-11-16] MEDS ORDERED: ONDANSETRON 4 MG/2 ML VIAL IVP PRN ×2 (08:31→08:50)
[2019-11-16] MEDS ORDERED: diphenhydrAMINE 50 MG/ML 1 ML VIAL IVP PRN ×3 (08:31→08:50)
[2019-11-16] MEDS ORDERED: ACETAMINOPHEN TAB 325 MG TAB PO PRN (08:50)
[2019-11-16] MEDS ORDERED: ZOLPIDEM 5 MG TAB PO PRN (08:50)
[2019-11-16] MEDS ORDERED: HYDROcodone/APAP 5-325MG 1 EACH TAB PO PRN (08:50)
[2019-11-16] MEDS ORDERED: diphenhydrAMINE 25 MG CAP PO PRN (08:50)
[2019-11-16] MEDS ORDERED: diphenhydrAMINE 50 MG CAP PO PRN (08:50)
[2019-11-16] MEDS ORDERED: METOCLOPRAMIDE 5 MG/ML 2 ML VIAL IVP PRN (08:50)
--- NOTE | 2019-11-16 08:50 | P.OP ---
Date of Procedure: 11/16/19 Preoperative Diagnosis: 39 and one sevenths week intrauterine , previous section for arrest of descent in the second stage, declining , morbid maternal obesity. Postoperative Diagnosis: Same, liveborn male infant, normal-appearing tubes and ovaries and uterine corpus. Procedure(s) Performed: Repeat low transverse section Anesthesia: spinal Surgeon: Karina Castano Textile Technical Officer #1: Becca Rodríguez Estimated Blood Loss (ml): 500 IV fluids (ml): 1,500 Urine output (ml): 150 Pathology: none sent Condition: stable Disposition: PACU Description of Procedure: Patient is brought to the operating suite where a spinal analgesia with Duramorph is administered without difficulty. Antibiotics are given. She's placed in the dorsal supine position with left lateral uterine displacement. The appropriate timeout is performed to assure proper patient and procedural identification. Abdomen is prepped and draped in usual sterile fashion. The analgesia is checked and noted to be adequate. A repeat low transverse skin incision is made in this is carried down through the subcutaneous tissue which is approximately 6-8 cm deep. The fascia is isolated, scored, extended bilaterally with curved Oneill scissors. Peritoneum is next identified and incised, there is no bowel or bladder involvement. Bladder flap is created with Metzenbaum scissors and at all times the bladder is Well from the operative field to avoid bladder and/or ureteral injury. The disposable ring retractor is placed into the abdomen for very good visualization. A repeat low transverse uterine incision is made carried down through the myometrium. The artificial amniorrhexis reveals clear fluid. The uterine incision is extended bluntly in a transverse position. The 's head is grasped and the infant is delivered in the occiput anterior position. There is no nuchal cord noted. The oropharynx, nasopharynx, and external nares are bulb suctioned. Patient is officially delivered of a liveborn male infant at 0818 hours. Umbilical cord is doubly clamped and ligated, he is handed to waiting nurses for evaluation where scores of 8 and 9 at one and 5 minutes respectively are given. The placenta is delivered manually, it is inspected and noted to be intact with trivascular cord at 0819 hours. Uterus is then externalized and massaged. Oxytocin is given. The uterus is swept clean with a sterile sponge to avoid any retained products of conception. The edges of the incision are grasped with Christy clamps. The uterus is closed in a two-step fashion, first layer running locking with 0 Vicryl, second layer imbricated with 0 Vicryl. Excellent reapproximation is noted. Bilateral tubes and ovaries are inspected and noted to be normal. No uterine anomalies, septa, fibroids are appreciated. The abdomen is suctioned with suction on guard posterior to the uterus. Uterus is gently placed back into the abdominal cavity and the ring retractors removed. Bilateral gutters are inspected and cleaned. The uterine incision is once again inspected and noted to be clean and dry. Peritoneum was allowed to close by secondary intention. Fascia is closed in a running stitch of 0 Vicryl with over ligation in the midline. Subcutaneous tissue is irrigated, noted to be clean and dry. 3-0 Vicryl is used in a running fashion to reapproximate the skin layer and to alleviate some space. 4-0 undyed Monocryl is used for final skin closure in a subcuticular manner. Steri-Strips and Mastisol are applied to the wound. Uterus is massaged. Total estimated blood loss 500 mL's. [place] is noted to be draining clear urine. Patient is brought back to the recovery room in very good condition with a pulse of 88, blood pressure 124/84. All sponge needle and enhancement counts are correct. They are requesting circumcision for their infant son.
[2019-11-16] MEDS: SENNOSIDES-DOCUSATE SODIUM 1 EACH TAB PO SCH (20:47)
[2019-11-16] MEDS: KETOROLAC 15 MG/ML 1 ML VIAL IVP PRN (23:51)
[2019-11-17] MEDS: KETOROLAC 15 MG/ML 1 ML VIAL IVP PRN (06:36)
[2019-11-17 07:39] LABS: Basophils % (A) 0 %; Eosinophils # (A) 0.1 k/uL (0-0.7); Eosinophils % (A) 1 %; HCT 29.2 % (34.0-46.0); Lymphocytes # (A) 1.5 k/uL (1.0-4.8); Lymphocytes % (A) 18 %; MCH 30.1 pg (25.0-35.0); MCHC 32.3 g/dL (31.0-37.0); Mean Platelet Volume 7.9; Monocytes # (A) 0.4 k/uL (0-1.0); Monocytes % (A) 5 %; Neutrophils # (A) 6.1 k/uL (1.3-7.7); Neutrophils % (A) 74 %; Platelet Count 184 k/uL (150-450); RBC 3.14 m/uL (3.80-5.40); WBC 8.2 k/uL (3.8-10.6)
[2019-11-17 07:42] LABS: HGB 9.5 gm/dL (11.4-16.0)
--- NOTE | 2019-11-17 11:51 | P.PNOBGPC ---
Subjective - Subjective Patient reports: Reports appetite normal, Reports voiding normally, Reports pain well controlled, Reports ambulating normally : doing well Objective - Vital Signs Latest vital signs: Vital Signs Temp Pulse Resp BP Pulse Ox 11/17/19 11:00 16 11/17/19 08:54 16 97 11/17/19 08:00 98.7 F 93 18 107/64 97 11/17/19 06:31 18 11/17/19 04:47 97 11/17/19 04:46 18 11/17/19 04:00 97.8 F 82 18 101/50 97 11/17/19 02:28 16 11/17/19 01:00 16 98 11/17/19 00:00 97.7 F 88 18 123/67 97 11/16/19 23:00 88 16 97 11/16/19 21:00 18 97 11/16/19 20:00 97.8 F 81 16 101/52 97 11/16/19 18:38 16 11/16/19 17:00 16 97 11/16/19 16:00 98.0 F 82 16 90/65 98 11/16/19 15:00 16 97 11/16/19 13:31 94 L 11/16/19 13:00 16 11/16/19 12:00 97.8 F 83 16 115/83 Intake and Output 11/16/19 11/17/19 11/17/19 22:59 06:59 14:59 Output Total 1375 950 Balance -1375 -950 Output: Urine 375 950 Straight 600 Uretheral (Lund) 375 Estimated Blood Loss 1000 Other: Voiding Method Toilet # Voids 0 - Exam Extremities: Present: normal Abdomen: Present: normal appearance, soft. Absent: distention, tenderness Incision: Present: normal, dry, intact Uterus: Present: normal, firm (The uterine fundus is tonic and minimally tender around the umbilicus.) - Labs Labs: Abnormal Lab Results - Last 24 Hours (Table) 11/17/19 Range/Units 07:08 RBC 3.14 L (3.80-5.40) m/uL Hgb 9.5 L D (11.4-16.0) gm/dL Hct 29.2 L (34.0-46.0) % Assessment and Plan (1) delivery delivered Current Visit: No Status: Acute Code(s): O82 - ENCOUNTER FOR DELIVERY WITHOUT INDICATION SNOMED Code(s): 861251503 Plan: Continue routine postoperative and care. I have encouraged the patient ambulate in the hallways at least 4 times daily. I would anticipate discharge home tomorrow pending no complications.
[2019-11-17] MEDS: IBUPROFEN 600 MG TAB PO PRN ×2 (12:26→17:38)
[2019-11-17] MEDS: SENNOSIDES-DOCUSATE SODIUM 1 EACH TAB PO SCH ×2 (13:55→21:13)
--- NOTE | 2019-11-17 18:38 | P.PN ---
Progress Note - Text Progress Note Date: 11/17/19 Postoperative day 1 status post section under spinal anesthesia, and i ntrathecal morphine given for postoperative analgesia, patient doing well, there is no anesthesia related complications, Patient had no headache, vital signs stable , Assessment and plan= postop day 1 status post , doing well there is no anesthesia related complication.
[2019-11-18] MEDS: IBUPROFEN 600 MG TAB PO PRN (06:18)
[2019-11-18 08:30] VITALS: BP 100/50; PULSE 81; RESP 18; TEMP 97.7
[2019-11-18] MEDS: SENNOSIDES-DOCUSATE SODIUM 1 EACH TAB PO SCH (08:30)
--- NOTE | 2019-11-18 10:52 | P.DS ---
Providers Date of admission: 11/16/19 06:10 Expected date of discharge: 11/18/19 Attending physician: Karina Castano Primary care physician: Stated None - Discharge Diagnosis(es) (1) delivery delivered Current Visit: No Status: Acute Hospital Course: The patient is a 24-year-old 2 para 1001 presents with the previous section at 39 and one sevenths weeks for repeat low transverse section. Her has been uncomplicated and group B strep status is negative. She was taken to the operating room where she underwent repeat low transverse section and uncomplicated fashion and was delivered of a viable 3150 g baby boy with Apgars of 8 at 1 minute and 9 at 5 minutes. Her postoperative course has been unremarkable with vital signs remained stable and her temperature was afebrile throughout. She was deemed stable for discharge on and postoperative day #2. She was discharged home to follow-up in the office in 2 weeks for an incision check and 6 weeks routinely. Discharge instructions included calling for any significantly increased bleeding or foul- smelling lochia, significantly increased fever abdominal pain, perineal complaints, breast complaints, incisional complaints, or anything else that concerned her. She is additionally instructed to have nothing in the vagina for at least 6 weeks time to include intercourse. She was also instructed to do no driving until off of all pain medications or 2 weeks' time, whichever came first and to abstain from any heavy lifting over 6 weeks as well. She understood all of her instructions and agrees to follow up as noted above. Discharge medications included continued vitamins as she is attempting to at least pump and feed the baby breast milk. She otherwise was to use [id number] analgesic pain medications but was additionally given a prescription for [place] 5/500 mg, 1-2 by mouth every 6 hours when necessary pain, #20 dispensed with no refills. Discharge hemoglobin and hematocrit were 9.5 and 29.2 respectively. Maternal blood type is O+ and rubella status is immune. Procedures: #1. Repeat low transverse section Patient Condition at Discharge: Stable Plan - Discharge Summary Discharge Rx Participant: Yes New Discharge Prescriptions: No Action Ferrous Sulfate [Feosol] 325 mg PO DAILY Pnv No.95/Ferrous Fum/Folic AC [ Multivitamin Tablet] 1 each PO DAILY Discharge Medication List Ferrous Sulfate [Feosol] 325 mg PO DAILY 11/15/19 [History] Pnv No.95/Ferrous Fum/Folic AC [ Multivitamin Tablet] 1 each PO DAILY 11/15/19 [History] Follow up Appointment(s)/Referral(s): Karina Castano MD [STAFF PHYSICIAN] - 2 Weeks Discharge Disposition: HOME SELF-CARE
== END 2019-11-18 12:04 | disposition home or self-care (01) | DRG 788 ==
LOC: 4FBP 06:10
PROVIDERS: ADMIT Obstetrics & Gynecology; ATTEND Obstetrics & Gynecology
PROC: 10D00Z1 Extraction of Products of Conception, Low, Open Approach (ICD-10-PCS; principal; 2019-11-16 08:00)
DX: O34.211 Maternal care for low transverse scar from previous cesarean delivery (principal); O99.214 Obesity complicating childbirth; E66.01 Morbid (severe) obesity due to excess calories; Z37.0 Single live birth; Z3A.39 39 weeks gestation of pregnancy; Z91.030 Bee allergy status; Z87.01 Personal history of pneumonia (recurrent); Z80.3 Family history of malignant neoplasm of breast; Z83.79 Family history of other diseases of the digestive system; Z82.69 Family history of other diseases of the musculoskeletal system and connective tissue
CPT/HCPCS: 85025; 86850; 86900; 86901

== ENCOUNTER 2020-12-08 03:36 | Emergency (ER) | payer OTHER ==
[2020-12-08 03:43] VITALS: BP 118/80; PULSE 74; RESP 20; TEMP 97.9
[2020-12-08] MEDS ORDERED: IBUPROFEN 800 MG TAB PO STA (03:55)
[2020-12-08] MEDS ORDERED: AMOXIC-POT CLAV 875-125MG 1 EACH TAB PO STA (03:55)
[2020-12-08] MEDS ORDERED: ACET/COD 300 MG/30 MG STARTER PACK 6 TAB BTL PO STA (03:55)
[2020-12-08] MEDS ORDERED: AMOXIC-POT CLAV 875MG STARTER PACK 2 TAB BTL PO STA (03:55)
[2020-12-08] MEDS ORDERED: IBUPROFEN 600 MG STARTER PACK 4 TAB BTL PO STA (03:55)
[2020-12-08] MEDS ORDERED: PSEUDOEPHEDRINE 12HR 120 MG TABLET.ER PO STA (03:55)
[2020-12-08] MEDS ORDERED: Acetaminophen-Codeine 300-30mg TAB PO STA (03:55)
--- NOTE | 2020-12-08 03:56 | ED ---
ENT HPI - General Chief complaint: Upper Respiratory Infection Stated complaint: ENT Time Seen by Provider: 12/08/20 03:41 Source: patient, RN notes reviewed, old records reviewed Mode of arrival: ambulatory Limitations: no limitations - History of Present Illness Initial comments: This is a 25-year-old female to the emergency department for evaluation patient bilateral ear pain severe. Patient states that she can't get comfortable she is nauseous severe no recent fevers no recent known significant sick contacts. No recent swimming does not use Q-tips. No trauma. MD complaint: sore throat, ear pain -: days(s) Location: R ear, L ear Severity: moderate Severity scale (1-10): 7 Quality: burning, sharp Consistency: constant Improves with: none Worsens with: none Context- Ear: recent illness Associated Symptoms: cough, sore throat - Related Data Home Medications Medication Instructions Recorded Confirmed Ferrous Sulfate [Feosol] 325 mg PO DAILY 11/15/19 11/15/19 Pnv No.95/Ferrous Fum/Folic AC 1 each PO DAILY 11/15/19 11/15/19 [ Multivitamin Tablet] Previous Rx's Medication Instructions Recorded Amoxic-Pot Clav 875-125Mg 1 tab PO Q12HR #20 tablet 12/08/20 [Augmentin 875-125] Allergies Allergy/AdvReac Type Severity Reaction Status Date / Time venom-honey bee Allergy Anaphylaxis Verified 12/08/20 03:43 [bee venom (honey bee)] Review of Systems ROS Statement: Those systems with pertinent positive or pertinent negative responses have been documented in the HPI. ROS Other: All systems not noted in ROS Statement are negative. Past Medical History Past Medical History: Pneumonia Additional Past Medical History / Comment(s): ovarian cyst, History of Any Multi-Drug Resistant Organisms: None Reported Past Surgical History: Section Past Anesthesia/Blood Transfusion Reactions: No Reported Reaction Past Psychological History: No Psychological Hx Reported Smoking Status: Never smoker Past Alcohol Use History: None Reported Past Drug Use History: None Reported - Past Family History Mother Family Medical History: No Reported History General Exam Limitations: no limitations General appearance: alert, in no apparent distress Head exam: Present: atraumatic, normocephalic, normal inspection Eye exam: Present: normal appearance, PERRL, EOMI. Absent: scleral icterus, conjunctival injection, periorbital swelling ENT exam: Present: normal exam, mucous membranes moist. Absent: TM's normal bilaterally (Bilateral otitis media) Neck exam: Present: normal inspection. Absent: tenderness, meningismus, lymphadenopathy Respiratory exam: Present: normal lung sounds bilaterally. Absent: respiratory distress, wheezes, rales, rhonchi, stridor Cardiovascular Exam: Present: regular rate, normal rhythm, normal heart sounds. Absent: systolic murmur, diastolic murmur, rubs, gallop, clicks GI/Abdominal exam: Present: soft, normal bowel sounds. Absent: distended, tenderness, guarding, rebound, rigid Extremities exam: Present: normal inspection, full ROM, normal capillary refill. Absent: tenderness, pedal edema, joint swelling, calf tenderness Back exam: Present: normal inspection Neurological exam: Present: alert, oriented X3, CN II-XII intact Psychiatric exam: Present: normal affect, normal mood Skin exam: Present: warm, dry, intact, normal color. Absent: rash Course Vital Signs 12/08/20 03:40 Temperature 97.9 F Pulse Rate 74 Respiratory 20 Rate Blood Pressure 118/80 O2 Sat by Pulse 98 Oximetry - Reevaluation(s) Reevaluation #1: Medical record is reviewed Patient symptoms improved here in the ER Patient informed results and questions answered Patient is in no acute distress Medical Decision Making - Medical Decision Making 25 female to the emergency department. Patient presents here today for evaluation of bilateral ear pain severe she does have bilateral otitis media place on antibiotics and can be discharged home Disposition Clinical Impression: Otitis media Disposition: HOME SELF-CARE Condition: Good Instructions (If sedation given, give patient instructions): Ear Infection (ED), Serous Otitis Media (ED) Prescriptions: Amoxic-Pot Clav 875-125Mg [Augmentin 875-125] 1 tab PO Q12HR #20 tablet Is patient prescribed a controlled substance at d/c from ED?: No Referrals: Mere Hidalgo MD [Primary Care Provider] - 1-2 days
== END 2020-12-08 04:25 | disposition home or self-care (01) ==
LOC: EC 03:36
DX: H66.93 Otitis media, unspecified, bilateral (principal); Z91.030 Bee allergy status
CPT/HCPCS: 99282

== ENCOUNTER → 2021-04-18 | Outpatient (CLI) | payer OTHER | END | disposition home or self-care (01) | LOC: LABWHC1 09:03 | PROVIDERS: ATTEND Emergency Medicine | DX: U07.1 COVID-19 (principal) | CPT/HCPCS: 87635 ==

== ENCOUNTER 2021-04-29 18:24 | Emergency (ER) | payer OTHER ==
[2021-04-29] MEDS ORDERED: SODIUM CHLORIDE 0.9% 500 ML 1,000 ML IV STA (18:27)
[2021-04-29 18:31] VITALS: TEMP 97.7
[2021-04-29 18:59] LABS: Basophils % (A) 0 %; Eosinophils # (A) 0.3 k/uL (0-0.7); Eosinophils % (A) 3 %; HCT 38.4 % (34.0-46.0); HGB 12.7 gm/dL (11.4-16.0); Lymphocytes # (A) 1.8 k/uL (1.0-4.8); Lymphocytes % (A) 18 %; MCH 31.3 pg (25.0-35.0); MCV 94.8 fL (80.0-100.0); Mean Platelet Volume 7.8; Monocytes # (A) 0.5 k/uL (0-1.0); Monocytes % (A) 5 %; Neutrophils # (A) 7.1 k/uL (1.3-7.7); Neutrophils % (A) 73 %; Platelet Count 246 k/uL (150-450); RBC 4.05 m/uL (3.80-5.40); RDW 12.4 % (11.5-15.5); WBC 9.8 k/uL (3.8-10.6)
[2021-04-29 19:08] LABS: ALT 17 U/L (4-34); AST 20 U/L (14-36); African American GFR (CKD) >90 (>60 ml/min/1.73 sqM); Albumin 3.9 g/dL (3.5-5.0); Alkaline Phosphatase 57 U/L (38-126); Anion Gap 9 mmol/L; Blood Urea Nitrogen 9 mg/dL (7-17); Calcium 8.7 mg/dL (8.4-10.2); Carbon Dioxide 22 mmol/L (22-30); Chloride 107 mmol/L (98-107); Glucose 104 mg/dL (74-99); Non-African American GFR(CKD) >90 (>60 ml/min/1.73 sqM); Potassium 3.8 mmol/L (3.5-5.1); Sodium 138 mmol/L (137-145); Total Bilirubin 0.3 mg/dL (0.2-1.3); Total Protein 6.9 g/dL (6.3-8.2)
[2021-04-29 19:24] LABS: HCG,Quantitative Serum 9692.8 mIU/mL
--- NOTE | 2021-04-29 19:36 | ED ---
Female Urogenital HPI - General Chief complaint: Vaginal Bleeding Stated complaint: 8WKS PREG. BLEEDING Time Seen by Provider: 04/29/21 18:27 Source: patient, RN notes reviewed Mode of arrival: ambulatory Limitations: no limitations - History of Present Illness Initial comments: This is a pleasant 25-year-old female who is A0. Patient previously has had 2 C-sections. Patient states she is about 8 weeks . Patient has had some vaginal bleeding and spotting for the past 4 days. She denies any significant pain. 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 No nausea or vomiting. No vaginal discharge. Patient does have a rehab director occupational therapist, Dr. Castano. No headache, no fever or chills, no changes in vision or hearing, no sore throat or difficulty with speech, no neck pain, no chest pain or shortness of breath, no abdominal pain, no nausea or vomiting, no changes in urination or bowel movements, no numbness or tingling, no extremity pain, no skin rashes or lesions. MD Complaint: vaginal bleeding - Related Data Home Medications Medication Instructions Recorded Confirmed Pnv No.95/Ferrous Fum/Folic AC 1 tab PO HS 11/15/19 04/29/21 [ Multivitamin Tablet] Allergies Allergy/AdvReac Type Severity Reaction Status Date / Time venom-honey bee Allergy Anaphylaxis Verified 04/29/21 20:47 [bee venom (honey bee)] Review of Systems ROS Statement: Those systems with pertinent positive or pertinent negative responses have been documented in the HPI. ROS Other: All systems not noted in ROS Statement are negative. Past Medical History Past Medical History: Pneumonia Additional Past Medical History / Comment(s): ovarian cyst, History of Any Multi-Drug Resistant Organisms: None Reported Past Surgical History: Section Past Anesthesia/Blood Transfusion Reactions: No Reported Reaction Past Psychological History: No Psychological Hx Reported Smoking Status: Never smoker Past Alcohol Use History: None Reported Past Drug Use History: None Reported - Past Family History Mother Family Medical History: No Reported History General Exam - General Exam Comments Initial Comments: Patient does not appear to be ill or toxic. No distress. Limitations: no limitations General appearance: alert, in no apparent distress Head exam: Present: atraumatic, normocephalic, normal inspection Eye exam: Present: normal appearance, PERRL, EOMI. Absent: scleral icterus, conjunctival injection, periorbital swelling ENT exam: Present: normal exam, mucous membranes moist Neck exam: Present: normal inspection. Absent: tenderness, meningismus, lymphadenopathy Respiratory exam: Present: normal lung sounds bilaterally. Absent: respiratory distress, wheezes, rales, rhonchi, stridor Cardiovascular Exam: Present: regular rate, normal rhythm, normal heart sounds. Absent: systolic murmur, diastolic murmur, rubs, gallop, clicks GI/Abdominal exam: Present: soft, normal bowel sounds. Absent: distended, tenderness, guarding, rebound, rigid Extremities exam: Present: normal inspection, full ROM, normal capillary refill. Absent: tenderness, pedal edema, joint swelling, calf tenderness Back exam: Present: normal inspection Neurological exam: Present: alert, oriented X3, CN II-XII intact Psychiatric exam: Present: normal affect, normal mood Skin exam: Present: warm, dry, intact, normal color. Absent: rash Course Vital Signs 04/29/21 04/29/21 18:29 20:45 Temperature 97.7 F Pulse Rate 82 77 Respiratory 18 16 Rate Blood Pressure 131/74 135/78 O2 Sat by Pulse 97 98 Oximetry Medical Decision Making - Medical Decision Making She has had an ultrasound during this . We will add on serum beta-hCG, type and screen, we'll obtain ultrasound since her first one as was had about 5 weeks Son shows a 6 week, 6 day gestation with a heart rate of 135. There is a subchorionic hemorrhage. Findings discussed with the patient. All questions answered. We will the patient on pelvic rest, patient has a prescription to get a serum beta hCG on Tuesday anyway. We'll have the patient follow-up with her rehab director occupational therapist on Tuesday. Patient was told to return to the ER for any signs or symptoms worsen. Told to return immediately if any other problems arise. All questions answered. Treatment plan discussed. Patient in agreement Patient's Rh factor was positive. According to the ultrasound, patient may be off on her dates. I did discuss this in detail with the patient. All questions answered. Patient has a prescription to have her blood Jordan test redone on Tuesday. Work note given. ED attending physician is Dr. Harrlel - Lab Data Result diagrams: 04/29/21 18:54 04/29/21 18:54 Lab Results 04/29/21 04/29/21 04/29/21 Range/Units 18:54 18:54 20:00 WBC 9.8 (3.8-10.6) k/uL RBC 4.05 (3.80-5.40) m/uL Hgb 12.7 (11.4-16.0) gm/dL Hct 38.4 (34.0-46.0) % MCV 94.8 (80.0-100.0) fL MCH 31.3 (25.0-35.0) pg MCHC 33.0 (31.0-37.0) g/dL RDW 12.4 (11.5-15.5) % Plt Count 246 (150-450) k/uL MPV 7.8 Neutrophils % 73 % Lymphocytes % 18 % Monocytes % 5 % Eosinophils % 3 % Basophils % 0 % Neutrophils # 7.1 (1.3-7.7) k/uL Lymphocytes # 1.8 (1.0-4.8) k/uL Monocytes # 0.5 (0-1.0) k/uL Eosinophils # 0.3 (0-0.7) k/uL Basophils # 0.0 (0-0.2) k/uL Sodium 138 (137-145) mmol/L Potassium 3.8 (3.5-5.1) mmol/L Chloride 107 (98-107) mmol/L Carbon Dioxide 22 (22-30) mmol/L Anion Gap 9 mmol/L BUN 9 (7-17) mg/dL Creatinine 0.68 (0.52-1.04) mg/dL Est GFR (CKD-EPI)AfAm >90 (>60 ml/min/1.73 sqM) Est GFR (CKD-EPI)NonAf >90 (>60 ml/min/1.73 sqM) Glucose 104 H (74-99) mg/dL Calcium 8.7 (8.4-10.2) mg/dL Total Bilirubin 0.3 (0.2-1.3) mg/dL AST 20 (14-36) U/L ALT 17 (4-34) U/L Alkaline Phosphatase 57 (38-126) U/L Total Protein 6.9 (6.3-8.2) g/dL Albumin 3.9 (3.5-5.0) g/dL HCG, Quant 9692.8 mIU/mL Blood Type O Positive Blood Type Recheck O Pos Bld Type Recheck Status No Antibody Screen NEGATIVE Spec Expiration Date 05/02/20212299 Disposition Clinical Impression: Threatened miscarriage in early , Vaginal bleeding affecting early , Subchorionic hemorrhage in first trimester Disposition: HOME SELF-CARE Instructions (If sedation given, give patient instructions): Threatened Miscarr iage (ED) Additional Instructions: No headache, no fever or chills, no changes in vision or hearing, no sore throat or difficulty with speech, no neck pain, no chest pain or shortness of breath, no abdominal pain, no nausea or vomiting, no changes in urination or bowel movements, no numbness or tingling, no extremity pain, no skin rashes or lesions. Is patient prescribed a controlled substance at d/c from ED?: No Referrals: Karina Castano MD [STAFF PHYSICIAN] - 1-2 days Time of Disposition: 21:23
--- NOTE | 2021-04-29 20:12 | US ---
EXAMINATION TYPE: Transabdominal DATE OF EXAM: 04/29/2021 7:53 PM COMPARISON:US, this is first US for this here. CLINICAL HISTORY: Vaginal bleeding, 8 weeks . Vaginal bleeding. . Hx 2 C sections. EXAM PERFORMED: Transvaginal (TV) and Transabdominal (TA) EXAM MEASUREMENTS: GESTATIONAL AGE / DATING Physician Established: Not yet established Dates by LMP: (8 weeks/0 days) EDC: 12/09/2021 Dates by First Scan: This is first scan. Dates by Current Scan for: (6 weeks/6 days) EDC: 12/17/2021 by CRL. -Gestational sac measures 5 weeks, 2 days. MATERNAL ANATOMY Uterus: 9.5 x 5.8 x 5.3 cm. Right Ovary: Not seen. Left Ovary: 2.2 x 1.2 x 1.3 cm. Post CDS / Adnexa: Appear wnl. Presence of free fluid: None seen. Presence of corpus luteal cyst: No. Presence of subchorionic bleed: Hypoechoic area with anechoic component seen adjacent to the gestatio nal sac: 1.6 x 1.1 x 1.0 cm. GESTATION / SURVEY CRL: 0.88 cm. (6 weeks/6 days). Questioning appearance-Anechoic area seen adjacent to pole, not though to be rhombencephalon, however there's limited visibility and measures 0.2 x 0.5 x 0.3 cm. MSD: 1.17 cm. (5 weeks/2 days) Yolk Sac (normal less than 6mm): 4.3 mm. Heart Rate: 131 bpm, 133 bpm second measurement. Rhythm: Normal IUP: Viable IUP Date of LMP: 03/04/2021 Beta HcG (if available): 9,692.8 mIU /mL IMPRESSION: Possible small subchorionic hemorrhage. Ultrasound gestational age is 6 weeks and 6 days.
[2021-04-29 20:57] VITALS: RESP 16
[2021-04-29 21:50] VITALS: BP 135/68; PULSE 78
== END 2021-04-29 21:50 | disposition home or self-care (01) ==
LOC: EC 18:24
DX: O20.0 Threatened abortion (principal); Z3A.08 8 weeks gestation of pregnancy
CPT/HCPCS: 36415; 76801; 76817; 80053; 84702; 85025; 86850; 86900; 86901

== ENCOUNTER → 2021-04-29 | Outpatient (CLI) | payer OTHER | END | disposition home or self-care (01) | LOC: LABWHC1 15:03 | PROVIDERS: ATTEND Obstetrics & Gynecology | DX: O20.0 Threatened abortion (principal); Z3A.00 Weeks of gestation of pregnancy not specified | CPT/HCPCS: 36415; 84702 ==

== ENCOUNTER → 2021-05-05 | Outpatient (CLI) | payer OTHER ==
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
== END | disposition home or self-care (01) ==
LOC: RADUSWWP 10:56
PROVIDERS: ATTEND Obstetrics & Gynecology
DX: O26.851 Spotting complicating pregnancy, first trimester (principal); Z3A.08 8 weeks gestation of pregnancy
CPT/HCPCS: 76801; 76817

== ENCOUNTER 2021-05-16 23:59 | Emergency (ER) | payer OTHER ==
[2021-05-17 00:08] VITALS: BP 137/77; PULSE 82; RESP 19; TEMP 98
[2021-05-17] MEDS ORDERED: AMOXIC-POT CLAV 875-125MG 1 EACH TAB PO STA (00:39)
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
[2021-05-17 09:36] LABS: Hepatitis B Surface AB- Quant 3.5 mIU/mL; Hepatitis B Surface Antibody Nonreactive (Nonreactive)
[2021-05-17 09:40] LABS: Hepatitis B Surface Antigen Nonreactive (Nonreactive); Hepatitis C IgG Antibody Nonreactive (Nonreactive)
== END 2021-05-17 01:06 | disposition home or self-care (01) ==
LOC: EC 23:59
DX: S51.851A Open bite of right forearm, initial encounter (principal); W50.3XXA Accidental bite by another person, initial encounter
CPT/HCPCS: 36415; 86706; 86803; 87340; 99283

== ENCOUNTER → 2021-07-19 | Outpatient (CLI) | payer OTHER | END | disposition home or self-care (01) | LOC: LABWHC1 16:06 | PROVIDERS: ATTEND Emergency Medicine | DX: Z20.822 Contact with and (suspected) exposure to COVID-19 (principal) | CPT/HCPCS: 87635 ==

== ENCOUNTER → 2021-08-12 | Outpatient (CLI) | payer OTHER | END | disposition home or self-care (01) | LOC: LABWHC1 10:45 | PROVIDERS: ATTEND Family Medicine | DX: Z53.9 Procedure and treatment not carried out, unspecified reason (principal) ==

== ENCOUNTER 2021-08-28 10:04 | Emergency (ER) | payer OTHER ==
[2021-08-28] MEDS ORDERED: SODIUM CHLORIDE 0.9% 1,000 ML IV ONE (10:16)
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
[2021-08-28 10:38] VITALS: RESP 18
[2021-08-28 10:58] LABS: Basophils # (A) 0.1 k/uL (0-0.2); Basophils % (A) 1 %; Eosinophils # (A) 0.2 k/uL (0-0.7); Eosinophils % (A) 3 %; HCT 40.7 % (34.0-46.0); HGB 12.8 gm/dL (11.4-16.0); Lymphocytes # (A) 1.4 k/uL (1.0-4.8); Lymphocytes % (A) 19 %; MCH 29.3 pg (25.0-35.0); MCHC 31.4 g/dL (31.0-37.0); MCV 93.5 fL (80.0-100.0); Mean Platelet Volume 7.6; Monocytes # (A) 0.4 k/uL (0-1.0); Monocytes % (A) 5 %; Neutrophils # (A) 5.4 k/uL (1.3-7.7); Neutrophils % (A) 71 %; Platelet Count 244 k/uL (150-450); RBC 4.36 m/uL (3.80-5.40); RDW 12.8 % (11.5-15.5); WBC 7.5 k/uL (3.8-10.6)
[2021-08-28 11:07] LABS: Appearance,Urine Clear (Clear); Bilirubin,Urine Negative (Negative); Blood,Urine Large (Negative); Color,Urine Yellow; Glucose,Urine (UA) Negative (Negative); Ketones,Urine Negative (Negative); Leukocyte Esterase,Urine Negative (Negative); Mucus,Urine Rare /hpf; Nitrite,Urine Negative (Negative); Protein,Urine Negative (Negative); RBC,Urine >182 /hpf (0-5); Specific Gravity,Urine 1.018 (1.001-1.035); Squamous Epithelial Cell,Urine 2 /hpf (0-4); Urobilinogen,Urine <2.0 mg/dL (<2.0); WBC,Urine 1 /hpf (0-5)
[2021-08-28 11:09] LABS: INR 0.9 (<1.2); Partial Thromboplastin Time 24.8 sec (22.0-30.0); Prothrombin Time 10.2 sec (9.0-12.0)
[2021-08-28 11:14] LABS: ALT 19 U/L (4-34); AST 24 U/L (14-36); African American GFR (CKD) >90 (>60 ml/min/1.73 sqM); Albumin 4.3 g/dL (3.5-5.0); Alkaline Phosphatase 67 U/L (38-126); Anion Gap 6 mmol/L; Blood Urea Nitrogen 14 mg/dL (7-17); Calcium 8.8 mg/dL (8.4-10.2); Carbon Dioxide 24 mmol/L (22-30); Chloride 108 mmol/L (98-107); Glucose 100 mg/dL (74-99); Non-African American GFR(CKD) >90 (>60 ml/min/1.73 sqM); Potassium 4.7 mmol/L (3.5-5.1); Sodium 138 mmol/L (137-145); Total Bilirubin 0.3 mg/dL (0.2-1.3); Total Protein 7.3 g/dL (6.3-8.2)
[2021-08-28 11:31] LABS: HCG,Quantitative Serum <2.4 mIU/mL
--- NOTE | 2021-08-28 12:11 | US ---
EXAMINATION TYPE: US transvaginal DATE OF EXAM: 08/28/2021 COMPARISON: NONE CLINICAL HISTORY: pelvic pain, intermenstrual bleeding. pain and bleeding TECHNIQUE: Transvaginal (TV). EXAM MEASUREMENTS: Uterus: 7.8 x 4.2 x 4.8 cm Endometrial Stripe: .8 cm Right Ovary: 3.2 x 1.8 x 2.1 cm 1. Uterus: Anteverted wnl 2. Endometrium: wnl 3. Right Ovary: wnl 4. Left Ovary: Obscured by overlying bowel gas Spectral, color and waveform doppler imaging shows good arterial and venous flow within the right o vary. 5. Bilateral Adnexa: wnl 6. Posterior cul-de-sac: wnl Heterogeneous uterus. The endometrial stripe measures within normal limits. No free fluid. Right ovary identified. Left ovary not clearly seen. No suspicious adnexal masses noted. IMPRESSION: As above. Source of bleeding and pain not identified.
[2021-08-28 13:06] VITALS: BP 124/74; PULSE 79; TEMP 97.7
== END 2021-08-28 13:05 | disposition home or self-care (01) ==
LOC: EC 10:04
DX: N92.3 Ovulation bleeding (principal); Z91.030 Bee allergy status
CPT/HCPCS: 36415; 76830; 80053; 81001; 84443; 84702; 85025; 85610; 85730; 87502; 87635; 93976

== ENCOUNTER 2021-11-01 11:26 | Emergency (ER) | payer OTHER ==
[2021-11-01 11:44] VITALS: RESP 16; TEMP 98.3
[2021-11-01] MEDS ORDERED: DEXAMETHASONE SOD PHOSPHATE 10 MG/ML 1 ML VIAL IM STA (12:05)
--- NOTE | 2021-11-01 12:11 | ED ---
General Adult HPI - General Chief complaint: Recheck/Abnormal Lab/Rx Stated complaint: left side pain Time Seen by Provider: 11/01/21 11:58 Source: patient, RN notes reviewed, old records reviewed Mode of arrival: ambulatory Limitations: no limitations - History of Present Illness Initial comments: This is a well-appearing 26-year-old female who presents ambulatory with complaints of left sided pain, namely her left shoulder, hip, knee and leg for 2 months. She states that the pain is intermittent with tingling in the left knee. States that the pain is also in her lower back and goes down her left leg. Patient states that she went to urgent care yesterday and was recommended to come to the emergency room. Denies any headaches, no focal neurological weakness. No fevers. No bowel or bladder incontinence. She is ambulatory with a steady gait. She does have a history of depression and is taking Zoloft. -: month(s) (2) Location: left, upper extremity, lower extremity Severity scale (1-10): 6 Consistency: intermittent Improves with: none Worsens with: other (walking) Associated Symptoms: denies other symptoms - Related Data Home Medications Medication Instructions Recorded Confirmed Sertraline [Zoloft] 100 mg PO DAILY 08/28/21 08/28/21 Previous Rx's Medication Instructions Recorded Tranexamic Acid 1,300 mg PO TID 4 Days #24 tablet 08/28/21 predniSONE 50 mg PO DAILY #5 tab 11/01/21 Allergies Allergy/AdvReac Type Severity Reaction Status Date / Time venom-honey bee Allergy Anaphylaxis Verified 11/01/21 11:43 [bee venom (honey bee)] Review of Systems ROS Statement: Those systems with pertinent positive or pertinent negative responses have been documented in the HPI. ROS Other: All systems not noted in ROS Statement are negative. Past Medical History Past Medical History: Pneumonia Additional Past Medical History / Comment(s): ovarian cyst, History of Any Multi-Drug Resistant Organisms: None Reported Past Surgical History: Section Past Anesthesia/Blood Transfusion Reactions: No Reported Reaction Past Psychological History: No Psychological Hx Reported Smoking Status: Never smoker Past Alcohol Use History: None Reported Past Drug Use History: None Reported - Past Family History Mother Family Medical History: No Reported History General Exam Limitations: no limitations General appearance: alert, in no apparent distress Head exam: Present: atraumatic, normocephalic, normal inspection Eye exam: Present: normal appearance. Absent: scleral icterus, conjunctival injection Neck exam: Present: full ROM. Absent: tenderness, meningismus Respiratory exam: Absent: respiratory distress, accessory muscle use Cardiovascular Exam: Present: regular rate GI/Abdominal exam: Present: soft Extremities exam: Present: normal capillary refill. Absent: pedal edema Left Shoulder Exam: Present: full ROM. Absent: tenderness, deformity, crepitus, dislocation, tenderness over AC joint Upper Arm exam: Present: full ROM. Absent: tenderness, deformity, crepidus Elbow exam: Present: full ROM. Absent: tenderness, swelling, deformity, crepitus, pain w/ pronation/supination Vascular: Present: normal capillary refill, radial pulse Left Hip exam: Present: full ROM. Absent: tenderness Upper Leg exam: Present: full ROM. Absent: tenderness Knee exam: Present: full ROM, full knee extension. Absent: tenderness, swelling, pain/laxity with valgus, pain/laxity with varus Lower Leg exam: Present: full ROM. Absent: tenderness, swelling, palpable cord Ankle exam: Absent: tenderness, swelling Neurovascular tendon exam: Present: no vascular compromise. Absent: abnormal cap refill, extremity cold to touch, pallor, foot drop Gait: observed and normal Back exam: Present: normal inspection, paraspinal tenderness (Lumbar sacral spine). Absent: CVA tenderness (R), CVA tenderness (L) Expanded Back exam: Absent: saddle anesthesia Back exam: Negative Straight Leg Raising: Right, Left Neurological exam: Present: alert, oriented X3, normal gait Psychiatric exam: Present: normal affect, normal mood Skin exam: Present: warm, dry, normal color. Absent: cyanosis, diaphoretic Course Vital Signs 11/01/21 11/01/21 11:41 14:23 Temperature 98.3 F Pulse Rate 95 75 Respiratory 16 16 Rate Blood Pressure 130/84 124/91 O2 Sat by Pulse 98 98 Oximetry - Reevaluation(s) Reevaluation #1: 11/01/21 12:45 patient requesting a test before x-ray. Time: 12:45 Medical Decision Making - Medical Decision Making Patient presents with a left sided pain, shoulder hip and knee pain for 2 months. Denies any injury. No fevers, no bowel or bladder incontinence, no saddle anesthesia. She is ambulatory with steady gait. X-ray of the LS-spine shows no evidence of acute osseous pathology. No evidence of loss of vertebral body height. Normal alignment. Patient's symptoms are likely inflammatory causing radiculopathy to the lower leg and shoulder. She was directed to take Motrin as needed for pain and follow up with her primary care doctor. Patient requesting 2 days off work to rest which was provided. Case was discussed with Dr. San. - Lab Data Lab Results 11/01/21 11/01/21 Range/Units 13:10 13:10 Urine Color Yellow Urine Appearance Cloudy H (Clear) Urine pH 5.5 (5.0-8.0) Ur Specific [place] 1.024 (1.001-1.035) Urine Protein Negative (Negative) Urine Glucose (UA) Negative (Negative) Urine Ketones Negative (Negative) Urine Blood Negative (Negative) Urine Nitrite Negative (Negative) Urine Bilirubin Negative (Negative) Urine Urobilinogen <2.0 (<2.0) mg/dL Ur Leukocyte Esterase Small H (Negative) Urine RBC 1 (0-5) /hpf Urine WBC 1 (0-5) /hpf Ur Squamous Epith Cells 4 (0-4) /hpf Urine Bacteria Occasional H (None) /hpf Urine Mucus Rare H (None) /hpf Urine HCG, Qual Not Detected (Not Detectd) Disposition Clinical Impression: Hip pain, left, Knee pain, left, Shoulder pain, left, Musculoskeletal pain Disposition: HOME SELF-CARE Condition: Good Instructions (If sedation given, give patient instructions): Musculoskeletal Pain (ED) Additional Instructions: Take prednisone for the next 5 days for inflammation. You can also take Tylenol for pain. Do not take Motrin while taking the prednisone as it upsets your stomach. When finished with prednisone you can start taking Motrin. Follow-up with the primary care doctor for continuation of care. Prescriptions: predniSONE 50 mg PO DAILY #5 tab Is patient prescribed a controlled substance at d/c from ED?: No Referrals: Mere Hidalgo MD [Primary Care Provider] - 1-2 days Time of Disposition: 14:06
[2021-11-01 13:22] LABS: Appearance,Urine Cloudy (Clear); Bacteria,Urine Occasional /hpf; Bilirubin,Urine Negative (Negative); Blood,Urine Negative (Negative); Color,Urine Yellow; Glucose,Urine (UA) Negative (Negative); Ketones,Urine Negative (Negative); Leukocyte Esterase,Urine Small (Negative); Mucus,Urine Rare /hpf; Nitrite,Urine Negative (Negative); PH, Urine 5.5 (5.0-8.0); Protein,Urine Negative (Negative); RBC,Urine 1 /hpf (0-5); Specific Gravity,Urine 1.024 (1.001-1.035); Squamous Epithelial Cell,Urine 4 /hpf (0-4); Urobilinogen,Urine <2.0 mg/dL (<2.0); WBC,Urine 1 /hpf (0-5)
--- NOTE | 2021-11-01 13:57 | XR ---
EXAMINATION TYPE: XR lumbar spine 2 or 3V DATE OF EXAM: 11/01/2021 1:44 PM INDICATION: Patient age:Female; 26 years old; Reason for study: pain; COMPARISON: None TECHNIQUE: Frontal, lateral and coned in L5-S1 lateral views of the spine. FINDINGS: No evidence of any acute osseous pathology. No evidence of loss of vertebral body height i s seen. There is normal alignment of the lumbar vertebral bodies. IMPRESSION: No acute process.
[2021-11-01 14:24] VITALS: BP 124/91; PULSE 75
== END 2021-11-01 14:24 | disposition home or self-care (01) ==
LOC: EC 11:26
DX: M25.562 Pain in left knee (principal); M25.552 Pain in left hip; M25.512 Pain in left shoulder; Z91.030 Bee allergy status
CPT/HCPCS: 81001; 81025; 72100; 99283; 96372; J1100

== ENCOUNTER 2021-12-31 | Emergency (ER) | payer OTHER ==
[2021-12-31 00:10] VITALS: TEMP 97.9
[2021-12-31] MEDS ORDERED: MORPHINE SULFATE 4 MG/ML SYRINGE IV STA ×2 (00:12→00:22)
[2021-12-31] MEDS ORDERED: ACETAMINOPHEN IV (For NPO) 1,000 MG in EMPTY BAG 1 BAG IVPB STA (00:13)
[2021-12-31] MEDS ORDERED: LIDOCAINE 1% INJ 10MG/ML (20 ML MDV) SQ STA (00:15)
--- NOTE | 2021-12-31 00:42 | ED ---
Fall HPI - General Chief Complaint: Fall Stated Complaint: Right ankle injury Time Seen by Provider: 12/31/21 00:06 Source: EMS Mode of arrival: EMS - History of Present Illness Initial Comments: This is a pleasant 26-year-old female who is 8 weeks . Patient states she jumped up out of her sleep she thought her was choking. She states when she did this she twisted her right foot and fell. Patient complaining of significant pain to the right ankle area with no other injuries. Patient is able to ascertain distal sensation. No headache, no fever or chills, no changes in vision or hearing, no sore throat or difficulty with speech, no neck pain, no chest pain or shortness of breath, no abdominal pain, no nausea or vomiting, no changes in urination or bowel movements, no numbness or tingling, , no skin rashes or lesions. Past medical, surgical, social, and family history reviewed. - Related Data Home Medications Medication Instructions Recorded Confirmed Sertraline [Zoloft] 100 mg PO DAILY 08/28/21 08/28/21 Previous Rx's Medication Instructions Recorded Tranexamic Acid 1,300 mg PO TID 4 Days #24 tablet 08/28/21 predniSONE 50 mg PO DAILY #5 tab 11/01/21 HYDROcodone/APAP 5-325MG [[place] 1 tab PO Q6HR PRN 3 Days #12 tab 12/31/21 5-325] Allergies Allergy/AdvReac Type Severity Reaction Status Date / Time venom-honey bee Allergy Anaphylaxis Verified 11/01/21 11:43 [bee venom (honey bee)] Review of Systems ROS Statement: Those systems with pertinent positive or pertinent negative responses have been documented in the HPI. ROS Other: All systems not noted in ROS Statement are negative. Past Medical History Past Medical History: Pneumonia Additional Past Medical History / Comment(s): ovarian cyst, History of Any Multi-Drug Resistant Organisms: None Reported Past Surgical History: Section Past Anesthesia/Blood Transfusion Reactions: No Reported Reaction Past Psychological History: No Psychological Hx Reported Smoking Status: Never smoker Past Alcohol Use History: None Reported Past Drug Use History: None Reported - Past Family History Mother Family Medical History: No Reported History General Exam Limitations: no limitations General appearance: alert, in distress Head exam: Present: atraumatic, normocephalic, normal inspection Eye exam: Present: normal appearance, EOMI ENT exam: Present: normal exam, mucous membranes moist Neck exam: Present: normal inspection, full ROM. Absent: tenderness Respiratory exam: Present: normal lung sounds bilaterally. Absent: respiratory distress, wheezes, rales, rhonchi, stridor Cardiovascular Exam: Present: regular rate, normal rhythm, normal heart sounds. Absent: systolic murmur, diastolic murmur, rubs, gallop, clicks GI/Abdominal exam: Present: soft. Absent: distended, tenderness, guarding, rebound, rigid Extremities exam: Present: tenderness, normal capillary refill. Absent: normal inspection, full ROM, calf tenderness Right Knee exam: Present: normal inspection, full ROM. Absent: tenderness, swelling, abrasion, laceration Lower Leg exam: Present: normal inspection. Absent: full ROM, tenderness, swelling Ankle exam: Present: tenderness, swelling, deformity, dislocation (Appears to be a subtalar dislocation with no deviation of the distal ankle and foot). Absent: abrasion, laceration, ecchymosis, crepitus, erythema Back exam: Present: normal inspection Neurological exam: Present: alert, oriented X3, CN II-XII intact Psychiatric exam: Present: normal affect, normal mood Skin exam: Present: warm, dry, intact, normal color. Absent: rash Course Vital Signs 12/31/21 12/31/21 12/31/21 00:04 01:12 01:25 Temperature 97.9 F Pulse Rate 73 76 80 Respiratory 18 18 18 Rate Blood Pressure 142/79 134/79 126/96 O2 Sat by Pulse 99 98 100 Oximetry 12/31/21 12/31/21 12/31/21 01:28 01:37 01:40 Temperature Pulse Rate 77 78 74 Respiratory 18 18 19 Rate Blood Pressure 144/80 121/59 O2 Sat by Pulse 100 100 Oximetry 12/31/21 12/31/21 12/31/21 01:50 02:00 02:10 Temperature Pulse Rate 74 80 78 Respiratory 17 17 18 Rate Blood Pressure 129/61 129/61 116/72 O2 Sat by Pulse 100 99 99 Oximetry 12/31/21 12/31/21 12/31/21 02:20 02:31 02:42 Temperature Pulse Rate 78 80 72 Respiratory 19 17 18 Rate Blood Pressure 135/48 133/70 133/70 O2 Sat by Pulse 99 98 98 Oximetry 12/31/21 12/31/21 12/31/21 02:50 03:05 03:14 Temperature Pulse Rate 75 82 75 Respiratory 20 16 18 Rate Blood Pressure 140/74 114/54 114/54 O2 Sat by Pulse 97 97 96 Oximetry 12/31/21 03:20 Temperature Pulse Rate Respiratory 19 Rate Blood Pressure 133/75 O2 Sat by Pulse Oximetry - Consultations Consultation #1: Call placed for on-call Paulina fall Procedures - Orthopedic Fracture Reduction Fracture #1 Consent Obtained: written consent Side: right Fracture Reduction Location: tibia, fibula Analgesia: procedural sedation Technique: traction/counter-traction Post Reduction X-rays Demonstrate: acceptable reduction Post-Reduction Neuro Exam: intact Post-Reduction Vascular Exam: intact Splint Applied: Yes Patient Tolerated Procedure: well - Orthopedic Joint Reduction Joint #1 Consent Obtained: written consent Side: right Joint Reduction Location: ankle (Talus dislocation) Analgesia: procedural sedation Shoulder Technique Used (if applicable): traction/counter-traction Technique Used: traction/counter-traction Post-Reduction Neuro Exam: intact Post-Reduction Vascular Exam: intact Post Reduction X-Ray Obtained: Yes Post Reduction X-Ray Results: reduced Patient Tolerated Procedure: well - Orthopedic Splinting/Casting Injury #1 Side: right Lower Extremity Immobilizer: posterior splint, stirrup splint, Juan Carlos wrap Other Orthopedic Equipment: crutches Additional Comments: OCL splint to right leg, long OCL with additional stirrup splint. Distal neurovascular status intact both pre-and post-application Medical Decision Making - Medical Decision Making Procedural sedation for closed reduction of right ankle fracture dislocation performed by Dr. Au with propofol. Noted pain medication, radiographic imaging, and procedural sedation was requisite given the patient's injury despite her early . We discussed all medications and interventions with the patient. Patient concurs that these were required. Patient's distal neurovascular status is intact both pre-and post-application. Patient did well with crutches at discharge. Patient is to follow-up with the orthopedic physician within the next 1-2 days. She is to call at 8 AM for follow-up. Patient understands this. Discussed conservative measures such as elevation, ice, and pain medication. Discussed signs and symptoms of compartment syndrome, discussed splint care. The case was discussed in detail with ED attending physician. Presentation, findings, treatment plan discussed in detail. Patient was also seen and evaluated by the ED attending physician who performed the procedural sedation. Surg Tech Dr. Au Disposition Clinical Impression: Closed dislocation of right talus, Closed fracture of distal end of right fibula, Fracture of medial malleolus, right, closed, Early stage of Disposition: HOME SELF-CARE Condition: Good Instructions (If sedation given, give patient instructions): Ankle Fracture (ED), Crutch Instructions (ED), Moderate Sedation (ED), Splint Care (ED), Ankle Dislocation (ED) Additional Instructions: Call the orthopedic office at 8 AM in the morning to schedule follow-up within the next 1-2 days. Use crutches at all times. Leave the splint on until orthopedic follow-up. If he can get by with regular Tylenol this is considered safer for her . However if he needed to take the hydrocodone/acetaminophen take that for severe pain instead of the Tylenol. Elevate the affected leg as much as possible. Apply ice 20 minutes on and off. Return to the ER immediately if any symptoms worsen, new symptoms arise, or any other problems develop. Prescriptions: HYDROcodone/APAP 5-325MG [[place] 5-325] 1 tab PO Q6HR PRN 3 Days #12 tab PRN Reason: Pain Is patient prescribed a controlled substance at d/c from ED?: No Referrals: Otto Weiss DO [Doctor of Osteopathic Medicine] - 1-2 days Time of Disposition: 03:00
[2021-12-31] MEDS ORDERED: PROPOFOL 10 MG/ML 20 ML VIAL IV ONE (00:58)
--- NOTE | 2021-12-31 01:23 | XR ---
EXAMINATION TYPE: XR ankle limited RT DATE OF EXAM: 12/30/2021 COMPARISON: NONE HISTORY: Fall. Pain TECHNIQUE: 2 views FINDINGS: There is posterior dislocation of the talus. There is apparent transverse fracture of the m edial malleolus with some posterior displacement. There is transverse fracture distal shaft of the fi bula with anterior angulation at the fracture site. IMPRESSION: There is a posterior fracture dislocation of the right ankle.
--- NOTE | 2021-12-31 02:13 | ED ---
Disposition Clinical Impression: Closed dislocation of right talus, Closed fracture of distal end of right fibula, Fracture of medial malleolus, right, closed Disposition: HOME SELF-CARE Instructions (If sedation given, give patient instructions): Moderate Sedation (ED), Ankle Fracture (ED) Is patient prescribed a controlled substance at d/c from ED?: No Referrals: Mere Hidalgo MD [Primary Care Provider] - 1-2 days Time of Disposition: 02:13 Procedures - [facility] Protocol (Time Out) Procedure Performed:: Closed reduction of right ankle dislocation and fx. Nurse: France Jain Respiratory Therapist: Jessica Renteria Patient Identification (2 identifiers required): Chart, Verbal, Arm Band, Name, Birthdate Patient/Legal Automatic Beading Lathe Operator has Confirmed: Identity, Site, Procedure, Consent Site: right ankle Site Marked: Yes - Procedural Sedation Procedural Sedation Start Time: 01:21 Procedural Sedation Stop Time: 01:29 Indications: fracture/dislocation reduction ASA Class: II Mallampati Airway Score: 2 Preparation: monitoring engineer applied, pulse oximeter IV Propofol Dose (mgs): 150 Complications: none Patient Tolerated Procedure: well
--- NOTE | 2021-12-31 02:20 | XR ---
EXAMINATION TYPE: XR foot limited RT DATE OF EXAM: 12/30/2021 COMPARISON: Today HISTORY: Postreduction TECHNIQUE: 2 view FINDINGS: There appears to be anatomic reduction of the dislocated ankle joint. There is large fractu re of the medial malleolus. The metatarsals are intact. Exam limited by the cast. IMPRESSION: Anatomic reduction.
--- NOTE | 2021-12-31 02:21 | XR ---
EXAMINATION TYPE: XR ankle limited RT DATE OF EXAM: 12/30/2021 COMPARISON: NONE HISTORY: Post reduction TECHNIQUE: 2 views FINDINGS: Ankle mortise is anatomic. There is large fracture of the medial malleolus. Fragment measur es 3.5 cm. There is nondisplaced fracture distal shaft of the fibula. The talus and calcaneus appear intact. IMPRESSION: Anatomic reduction of the ankle joint. Bimalleolar type fracture of the ankle.
[2021-12-31 03:28] VITALS: BP 133/75; PULSE 75; RESP 19
== END 2021-12-31 04:18 | disposition home or self-care (01) ==
LOC: EC
DX: O9A.211 Injury, poisoning and certain other consequences of external causes complicating pregnancy, first trimester (principal); S82.831A Other fracture of upper and lower end of right fibula, initial encounter for closed fracture; S82.51XA Displaced fracture of medial malleolus of right tibia, initial encounter for closed fracture; S93.04XA Dislocation of right ankle joint, initial encounter; Z3A.08 8 weeks gestation of pregnancy; Z91.030 Bee allergy status; W19.XXXA Unspecified fall, initial encounter; Y93.39 Activity, other involving climbing, rappelling and jumping off
CPT/HCPCS: 73600; 73620; 99284; 27762; 96374; 96375; J2270; J0131; J2704

== ENCOUNTER 2022-05-20 00:33 | Outpatient (CLI) | payer OTHER ==
[2022-05-20 02:00] VITALS: BP 126/58; PULSE 92; RESP 18; TEMP 97.5
--- NOTE | 2022-07-18 10:04 | P.MSEPDOC ---
Presenting Problems - Arrival Data Date of Arrival on Unit: 05/20/22 Time of Arrival on Unit: 00:30 Mode of Transport: Ambulatory - Complaint OB-Reason for Admission/Chief Complaint: Pain Comment: Patient presents to triage with c/o left sided cramping and pain 6/10 constant. Woke up at 2330 to come to work and was having this pain. She is a patient of Dr. Castano,. FREDY 08/18/2022 GA 27.1. She has a repeat section scheduled for 08/10/2022. Denies leakage of fluid, vaginal bleeding and is feeling baby move slightly less than. this morning. Medical History - Information : 4 Para: 2 Term: 2 : 0 Abortions: Spontaneous or Elective: 1 Number of Living Children: 2 - Gestational Age Gestational Age by FREDY (wks/days): 27 Weeks and 1 Days - History Complications: Prior Review of Systems - Review of Systems Constitutional: No problems Breast: No problems ENT: No problems Cardiovascular: No problems Respiratory: No problems Gastrointestinal: No problems Genitourinary: No problems Musculoskeletal: No problems Neurological: No problems Skin: No problems Vital Signs - Temperature Temperature: 97.5 F Temperature Source: Oral - Pulse Pulse Oximetery Pulse Rate: 92 Pulse Assessment Method: Pulse Oximetry - Respirations Respiratory Rate: 18 Oxygen Delivery Method: Room Air O2 Sat by Pulse Oximetry: 96 - Blood Pressure Right Arm Blood Pressure: 126/58 Blood Pressure Mean: 80 Blood Pressure Source: Automatic Cuff Medical Screen Scoring - Assessment - Baby A Baseline FHR: 130 Heart Rate - NICHD Category: Category I (Normal) NST: Reactive Physician Notification - Physician Notified Physician Notified Date: 05/20/22 Physician Notified Time: 01:18 Physician: Dr. Rodríguez New Order Received: Yes - Notification Comment Comment: Called and spoke with Dr. Rodríguez. reported on patient of Dr. Castano's that came. to triage with c/o left side pain that has decreased since coming to triage. Vitals are. wnl, no leakage of fluid or bleeding. Had a miscarriage last April and states she is. a little paranoid. Scheduled repeat on 08/10/22. FHR 130's with accels. No. contractions. Orders to send her home with discharge instructions and a note so be able. to go home from work. Maternal Triage Index - Maternal Triage Index Presenting for scheduled procedure w/no complaint: No - Stat/Priority 1 Stat Priority 1: No - Urgent/Priority 2 Urgent Priority 2: No - Prompt/Priority 3 Prompt Priority 3: No - Non-Urgent/Priority 4 Non-Urgent Priority 4: Yes Criteria Met for Priority 4: Non urgent symptoms including left side pain. Disposition - Disposition OB Disposition: Discharge to home Discharge Date: 05/20/22 Discharge Time: 01:30 I agree with the RN Medical Screening Exam: Yes Case reviewed; plan agreed upon as documented in EMR&OBIX.: Yes Diagnosis: RELATED CONDITIONS, UNSPECIFIED, SECOND TRIMESTER
== END 2022-05-20 01:30 | disposition home or self-care (01) ==
LOC: FBPOP 00:33
PROVIDERS: ATTEND Obstetrics & Gynecology Obstetrics
DX: O26.892 Other specified pregnancy related conditions, second trimester (principal); O34.219 Maternal care for unspecified type scar from previous cesarean delivery; Z3A.27 27 weeks gestation of pregnancy; Z91.02 Food additives allergy status
CPT/HCPCS: 99213

== ENCOUNTER 2022-07-11 10:53 | Outpatient (CLI) | payer OTHER ==
[2022-07-11 11:59] VITALS: BP 139/92; PULSE 109; RESP 17; TEMP 95.7
--- NOTE | 2022-07-21 12:06 | P.MSEPDOC ---
Presenting Problems - Arrival Data Date of Arrival on Unit: 07/11/22 Time of Arrival on Unit: 10:53 Mode of Transport: Ambulatory - Complaint OB-Reason for Admission/Chief Complaint: Rule Out PROM Comment: pt unsure of she had SROM last night at 2300, has been leaking since and had to change her underware this am Medical History - Information : 4 Para: 2 Term: 2 : 0 Abortions: Spontaneous or Elective: 1 Number of Living Children: 2 - Gestational Age Gestational Age by FREDY (wks/days): 34 Weeks and 4 Days - History Complications: Prior Comment: marijuina use at the beginning of but none at present Review of Systems - Review of Systems Constitutional: No problems Breast: No problems ENT: No problems Cardiovascular: No problems Respiratory: No problems Gastrointestinal: No problems Genitourinary: No problems Musculoskeletal: No problems Neurological: No problems Skin: No problems Vital Signs - Temperature Temperature: 95.7 F Temperature Source: Temporal Artery Scan - Pulse Right Brachial Pulse Rate: 109 Pulse Assessment Method: Automatic Cuff - Respirations Respiratory Rate: 17 Oxygen Delivery Method: Room Air O2 Sat by Pulse Oximetry: 96 - Blood Pressure Right Arm Blood Pressure: 139/92 Blood Pressure Mean: 107 Blood Pressure Source: Automatic Cuff Medical Screen Scoring - Uterine Contractions Intensity: Mild Resting: Soft to palpation - Assessment - Baby A Baseline FHR: 130 Heart Rate - NICHD Category: Category I (Normal) NST: Reactive Physician Notification - Physician Notified Physician Notified Date: 07/11/22 Physician Notified Time: 11:38 Physician: Karina Castano New Order Received: Yes - Notification Comment Comment: amniosure negative, she has appt tomorrow 07/12 at 1515 Maternal Triage Index - Maternal Triage Index Presenting for scheduled procedure w/no complaint: No - Stat/Priority 1 Stat Priority 1: No Provider Notified: Karina Castano Provider Notified Time: 11:38 Criteria Met for Priority 1: pt unsure of she had SROM last night at 2300, has been leaking since and had to change her underware this am - Urgent/Priority 2 Urgent Priority 2: Yes Provider Notified: Karina Castano Provider Notified Time: 11:38 Criteria Met for Priority 2: pt unsure of she had SROM last night at 2300, has been leaking since and had to change her underware this am Disposition - Disposition OB Disposition: Admit, Physician follow up in office, Discharge to home, Written follow up instructions reviewed Discharge Date: 07/11/22 Discharge Time: 11:45 I agree with the RN Medical Screening Exam: Yes Case reviewed; plan agreed upon as documented in EMR&OBIX.: Yes Diagnosis: FALSE LABOR BEFORE 37 COMPLETED WEEKS OF GEST, THIRD TRI
== END 2022-07-11 11:45 | disposition home or self-care (01) ==
LOC: FBPOP 10:53
PROVIDERS: ATTEND Obstetrics & Gynecology
DX: O47.03 False labor before 37 completed weeks of gestation, third trimester (principal); Z3A.34 34 weeks gestation of pregnancy; O34.219 Maternal care for unspecified type scar from previous cesarean delivery; Z91.02 Food additives allergy status
CPT/HCPCS: 59025; 84112; G0463; 99213

== ENCOUNTER 2022-08-10 06:00 | Inpatient (IN) | payer OTHER ==
[2022-08-10] MEDS ORDERED: TRANEXAMIC ACID IN NACL,ISO-OS 1,000 MG in EMPTY BAG 1 BAG IV PRN (06:29)
[2022-08-10] MEDS ORDERED: CARBOPROST TROMETHAMINE 250 MCG/ML 1 ML AMP IM PRN (06:29)
[2022-08-10] MEDS ORDERED: METHYLERGONOVINE 0.2 MG/ML 1 ML AMP IM PRN (06:29)
[2022-08-10] MEDS ORDERED: OXYTOCIN 10 UNIT/ML 1 ML VIAL IM PRN (06:29)
[2022-08-10] MEDS ORDERED: miSOPROStoL 200 MCG TAB PO PRN (06:29)
[2022-08-10] MEDS ORDERED: ceFAZolin 3 GM in SODIUM CHLORIDE 0.9% 100 ML IVPB ONE (06:40)
[2022-08-10] MEDS ORDERED: CITRIC ACID-SODIUM CITRATE 15 ML CUP PO ONE (06:40)
[2022-08-10] MEDS: LACTATED RINGERS 1,000 ML IV SCH ×5 (07:20→17:39)
[2022-08-10 07:37] LABS: Amphetamine Screen,Urine Not Detected (NotDetected); Barbiturate Screen,Urine Not Detected (NotDetected); Benzodiazepines Screen,Urine Not Detected (NotDetected); Cocaine Screen,Urine Not Detected (NotDetected); Methadone Screen, Urine Not Detected (NotDetected); Opiate Screen,Urine Not Detected (NotDetected); Oxycodone Screen, Urine Not Detected (NotDetected); Phencyclidine Screen,Urine Not Detected (NotDetected); Tricyclic Antidepressant,Urine Not Detected (NotDetected); Urn Cannabinoid Scrn Detected (NotDetected)
[2022-08-10 07:45] LABS: Basophils % (A) 0 %; Eosinophils # (A) 0.1 k/uL (0-0.7); Eosinophils % (A) 1 %; HCT 34.8 % (34.0-46.0); HGB 11.3 gm/dL (11.4-16.0); Lymphocytes # (A) 1.8 k/uL (1.0-4.8); Lymphocytes % (A) 22 %; MCH 30.6 pg (25.0-35.0); MCHC 32.5 g/dL (31.0-37.0); Mean Platelet Volume 8.2; Monocytes # (A) 0.4 k/uL (0-1.0); Monocytes % (A) 5 %; Neutrophils # (A) 5.6 k/uL (1.3-7.7); Neutrophils % (A) 70 %; Platelet Count 215 k/uL (150-450); RDW 13.6 % (11.5-15.5)
--- NOTE | 2022-08-10 08:02 | P.HPOB ---
History of Present Illness H&P Date: 08/10/22 Chief Complaint: Here for repeat section This is a 26-year-old female 4 para 2012 EDC 08/15/2022 at 39 and one sevenths weeks who presents today for repeat low transverse section. Fetus is been active throughout the . She is declining option for tubal ligation. Obstetric history significant for blood type O+, rubella status immune. VDRL testing, urine culture, hepatitis B surface antigen, HIV testing, gonorrhea and chlamydia cultures, group B strep cultures all negative. One-hour Glucola 139. Past surgical history section, low transverse in the past. Patient declining option for . Past medical history is significant for elevated blood pressure earlier in the ALLERGIES none known medical ALLERGIES. Social history patient is single, she is a tobacco smoker, she denies alcohol or drug use. On exam patient is 5 foot 8 inches, 290 pounds, blood pressure 125/63 on admission. General physical exam is within normal limits. heart rate is consistent with reactive NST. Extremities reveal trace edema. Abdomen is morbidly obese. Cervix is long thick and closed. Impression: 39 and one sevenths week intrauterine , previous section, here for repeat section. All signs reassuring. Tubal ligation offered and declined. Plan: Antibiotics given. For repeat low transverse section at this time. All risks and benefits of the surgery discussed in detail. All questions answered. Past Medical History Past Medical History: Pneumonia Additional Past Medical History / Comment(s): ovarian cyst, History of Any Multi-Drug Resistant Organisms: None Reported Past Surgical History: Section Past Anesthesia/Blood Transfusion Reactions: No Reported Reaction Past Psychological History: No Psychological Hx Reported Smoking Status: Current every day smoker Past Alcohol Use History: None Reported Past Drug Use History: None Reported - Past Family History Mother Family Medical History: No Reported History Medications and Allergies Allergies Allergy/AdvReac Type Severity Reaction Status Date / Time venom-honey bee Allergy Anaphylaxis Verified 08/10/22 06:27 [bee venom (honey bee)] Exam Vital Signs Temp Pulse Resp BP Pulse Ox 08/10/22 06:15 96.2 F L 97 16 125/63 96 Intake and Output 08/09/22 08/10/22 08/10/22 22:59 06:59 14:59 Other: Weight 131.542 kg Results Result Diagrams: 08/10/22 07:24 Abnormal Lab Results - Last 24 Hours (Table) 08/10/22 08/10/22 Range/Units 06:33 07:24 RBC 3.70 L (3.80-5.40) m/uL Hgb 11.3 L (11.4-16.0) gm/dL U Marijuana (THC) Screen Detected H (NotDetected) Assessment and Plan Assessment: 39 and one sevenths weeks intrauterine , here for repeat low transverse section. All signs reassuring. Morbid obesity. Plan: Antibiotics given. For repeat low transverse section at this time. All questions answered. Anesthesia present. Time with Patient: Less than 30
[2022-08-10] MEDS ORDERED: fentaNYL (PF) 50 MCG/ML 2 ML AMP ONE (08:10)
[2022-08-10] MEDS ORDERED: DEXAMETHASONE SOD PHOSPHATE 4 MG/ML 1 ML VIAL ONE (08:10)
[2022-08-10] MEDS ORDERED: OXYTOCIN 30 UNITS/500 ML NS BAG IV ONE (08:10)
[2022-08-10] MEDS ORDERED: KETOROLAC 15 MG/ML 1 ML VIAL ONE (08:10)
[2022-08-10] MEDS ORDERED: MORPHINE SULFATE (PF) 0.3 MG/0.3 ML SYR ONE (08:10)
[2022-08-10] MEDS ORDERED: ONDANSETRON 4 MG/2 ML VIAL ONE (08:10)
[2022-08-10] MEDS ORDERED: PHENYLEPHRINE-0.9% NACL SYG 1,000 MCG/10 ML SYRINGE ONE (08:10)
[2022-08-10] MEDS ORDERED: diphenhydrAMINE 50 MG CAP PO PRN (09:11)
[2022-08-10] MEDS ORDERED: ONDANSETRON 4 MG/2 ML VIAL IVP PRN (09:11)
[2022-08-10] MEDS ORDERED: ZOLPIDEM 5 MG TAB PO PRN (09:11)
[2022-08-10] MEDS ORDERED: NALOXONE 0.4 MG/ML 1 ML VIAL IV PRN (09:11)
[2022-08-10] MEDS ORDERED: diphenhydrAMINE 25 MG CAP PO PRN (09:11)
[2022-08-10] MEDS ORDERED: METOCLOPRAMIDE 5 MG/ML 2 ML VIAL IVP PRN (09:11)
[2022-08-10] MEDS ORDERED: diphenhydrAMINE 50 MG/ML 1 ML VIAL IVP PRN ×2 (09:11)
--- NOTE | 2022-08-10 09:11 | P.OP ---
Date of Procedure: 08/10/22 Preoperative Diagnosis: 39 and one sevenths week intrauterine , 2 previous sections, for repeat section, tubal ligation declined, morbid maternal obesity Postoperative Diagnosis: Same, liveborn male infant. Procedure(s) Performed: Repeat low transverse section Anesthesia: spinal Surgeon: Karina Castano Specialist Icu #1: Becca Rodríguez Estimated Blood Loss (ml): 500 IV fluids (ml): 1,000 Urine output (ml): 50 Pathology: none sent Condition: stable Disposition: PACU Operative Findings: Liveborn male , scores 9 and 9, 7 lbs. 11 oz., 3480 g. Description of Procedure: Patient is brought to the operating room where a spinal with Duramorph is administered. She's placed in the dorsal supine position with left lateral uterine displacement. 3 g of Ancef are given. The appropriate timeout was performed to assure proper patient and procedural identification after the abdomen is prepped and draped in usual sterile fashion. Lund catheter to direct drainage. Analgesia is checked and noted to be adequate. A repeat low transverse skin incision is made in this is carried down through the subcutaneous tissue through the fascia. The fascia is isolated, scored, extended bilaterally with curved Oneill scissors. Peritoneum is next identified and incised, there is no bowel or bladder involvement. The large disposable ring retractors placed into the abdomen and seated for good exposure. Repeat low transverse uterine incision is made and carried down through the thick myometrium. Artificial amniorrhexis reveals clear fluid. The incision is extended with blunt dissection. is delivered in the occiput anterior position. The oropharynx, nasopharynx, and external nares were all bulb suction. Patient is officially delivered of a liveborn male at 0829 hours. Umbilical cord is doubly clamped and ligated, he is handed to waiting nurses for evaluation where scores of 9 and 9 at one and 5 minutes respectively are given. Infant weighs 7 lbs. 11 oz. or 3480 g. Placenta is delivered manually, it is inspected and noted to be intact with trivascular cord at 0830 hours. Uterus is then externalized and massaged. It is swept clean with a sterile sponge to avoid any retained products of conception. The uterus is closed in a two-step fashion, first layer running locking 0 Vicryl, second layer imbricated with saline. Bilateral tubes and ovaries appear normal. Uterus is placed back into the abdominal cavity and the cavity is suctioned with suction on guard and then with the sponge in bilateral gutters to remove any remaining fluid or blood. Uterine incision is clean and dry, surgical's no is placed prophylactically. Peritoneum is allowed to close by secondary intention. Fascia is closed in a running stitch of 0 Vicryl with over ligation in the midline. Subcutaneous tissue is clean and dry, irrigated, cauterized as necessary. 3-0 Vicryl is used to reapproximate the subcutaneous tissue which is approximately 8-10 cm deep. 4-0 undyed Monocryl issues for final skin closure in a subcuticular manner. Steri-Strips and Mastisol are applied to the wound. All sponge needle and enhancement counts are correct. Total estimated blood loss 500 mL, fluid replacement 1000 mL in the OR, urine is clean and clear. Patient is brought back to recovery room in very good condition with stable vital signs including a pulse of 87, blood pressure 138/78. Patient is requesting circumcision for her son.
[2022-08-10] MEDS: ACETAMINOPHEN TAB 500 MG TAB PO SCH ×2 (14:03→20:25)
[2022-08-10] MEDS: IBUPROFEN 600 MG TAB PO SCH ×2 (15:59→21:59)
[2022-08-10] MEDS: SENNOSIDES-DOCUSATE SODIUM 1 EACH TAB PO SCH (20:26)
[2022-08-11] MEDS: ACETAMINOPHEN TAB 500 MG TAB PO SCH ×4 (03:20→19:07)
[2022-08-11 03:55] VITALS: RESP 16
[2022-08-11] MEDS: LACTATED RINGERS 1,000 ML IV SCH ×4 (05:38→11:21)
[2022-08-11] MEDS: IBUPROFEN 600 MG TAB PO SCH ×4 (06:51→23:29)
--- NOTE | 2022-08-11 07:27 | P.PN ---
Subjective Progress Note Date: 08/11/22 Principal diagnosis: Well postoperative day #1 Slept intermittently. Pain well managed. Minimal vaginal bleeding this morning. Objective - Vital Signs Vital signs: Vital Signs Temp 97.9 F 08/11/22 03:54 Pulse 86 08/11/22 03:54 Resp 16 08/11/22 03:54 BP 110/67 08/11/22 03:54 Pulse Ox 97 08/11/22 03:54 FiO2 Intake & Output 08/10/22 08/11/22 08/11/22 18:59 06:59 18:59 Intake Total 960 Output Total 2181 500 Balance -2181 460 Intake: Oral 960 Output: Urine 300 500 Uretheral (Lund) 100 Estimated Blood Loss 189 Output, Quantitative 1692 Blood Loss Other: Voiding Method Indwelling Catheter Toilet # Voids 2 - Constitutional General appearance: Present: morbidly obese - EENT Eyes: Present: PERRLA ENT: Present: hearing grossly normal - Respiratory Respiratory: bilateral: CTA - Cardiovascular Rhythm: regular - Gastrointestinal Gastrointestinal Comment(s): Incision clean and dry, intact, Steri-Strips applied. General gastrointestinal: Present: normal bowel sounds - Integumentary Integumentary: Present: normal - Neurologic Neurologic: Present: CNII-XII intact - Musculoskeletal Musculoskeletal: Present: gait normal, strength equal bilaterally - Psychiatric Psychiatric: Present: A&O x's 3, appropriate affect, intact judgment & insight - Labs CBC & Chem 7: 08/10/22 07:24 Labs: Abnormal Lab Results - Last 24 Hours (Table) 08/10/22 08/10/22 Range/Units 06:33 07:24 RBC 3.70 L (3.80-5.40) m/uL Hgb 11.3 L (11.4-16.0) gm/dL U Marijuana (THC) Screen Detected H (NotDetected) Assessment and Plan Assessment: Doing well postoperative day #1 Plan: Advance diet and activity. Circumcision this morning. Continue postoperative care. Likely discharge home tomorrow. Time with Patient: Less than 30
[2022-08-11 07:34] LABS: Basophils % (A) 0 %; Eosinophils % (A) 0 %; HCT 27.3 % (34.0-46.0); Lymphocytes % (A) 21 %; MCH 31.5 pg (25.0-35.0); MCHC 33.7 g/dL (31.0-37.0); MCV 93.6 fL (80.0-100.0); Mean Platelet Volume 8.1; Monocytes # (A) 0.4 k/uL (0-1.0); Monocytes % (A) 5 %; Neutrophils # (A) 6.9 k/uL (1.3-7.7); Neutrophils % (A) 72 %; Platelet Count 187 k/uL (150-450); RBC 2.92 m/uL (3.80-5.40); RDW 13.5 % (11.5-15.5); WBC 9.5 k/uL (3.8-10.6)
[2022-08-11 07:36] LABS: HGB 9.2 gm/dL (11.4-16.0)
[2022-08-11] MEDS: SENNOSIDES-DOCUSATE SODIUM 1 EACH TAB PO SCH ×2 (11:21→23:28)
[2022-08-11] MEDS ORDERED: HYDROcodone/APAP 5-325MG 1 EACH TAB PO PRN ×2 (21:02)
[2022-08-12] MEDS: ACETAMINOPHEN TAB 500 MG TAB PO SCH ×2 (01:07→08:27)
[2022-08-12] MEDS: IBUPROFEN 600 MG TAB PO SCH (05:25)
[2022-08-12 08:33] VITALS: BP 109/69; PULSE 92; TEMP 98
[2022-08-12] MEDS: SENNOSIDES-DOCUSATE SODIUM 1 EACH TAB PO SCH (08:34)
--- NOTE | 2022-08-12 10:54 | P.DS ---
Providers Date of admission: 08/10/22 06:00 Expected date of discharge: 08/12/22 Attending physician: Karina Castano Primary care physician: Stated None Hospital Course: This is a 26 year old now POD#2 s/p scheduled repeat lower transverse section meeting all postoperative milestones appropriately and who desires discharge home today. The patient is doing well this morning and had no acute events overnight. She has no complaints this morning. She reports minimal lochia, passing flatus, voiding without difficulty, ambulating, and eating/drinking without nausea or vomiting. Infant doing well at bedside, s/p cirucmcision. She denies chest pain, shortness of breathing, fevers, or chills overnight. She denies pain or swelling in the legs. Postoperative restricitons are reviewed with the patient including pelvic rest for 6 weeks, no lifting heavier than 15 pounds for 6 weeks. The patient is encouraged to call the office if she experiences any heavy bleeding, foul-smelling discharge, breast complaints, or any if she has any other concerns. She will follow up in the office with Dr. Castano in 2 weeks for postoperative exam. All questions are answered. Assessment: 26 year old now postoperative day #2 s/p repeat c/s Patient Condition at Discharge: Good Plan - Discharge Summary Discharge Rx Participant: No New Discharge Prescriptions: New Acetaminophen Tab [Tylenol] 650 mg PO Q6H PRN #30 tab PRN Reason: Mild Pain (Scale 1 To 3) Ibuprofen [Motrin] 600 mg PO Q6HR PRN #30 tab PRN Reason: Mild Pain (Scale 1 To 3) Discharge Medication List Acetaminophen Tab [Tylenol] 650 mg PO Q6H PRN #30 tab 08/12/22 [Rx] Ibuprofen [Motrin] 600 mg PO Q6HR PRN #30 tab 08/12/22 [Rx] Follow up Appointment(s)/Referral(s): Karina Castano MD [STAFF PHYSICIAN] - 2 Weeks Patient Instructions/Handouts: (DC), Depression (DC), Bleeding (DC) Activity/Diet/Wound Care/Special Instructions: Pelvic rest x6 weeks. No lifting heavier than 15 pounds x6 weeks. Discharge Disposition: HOME SELF-CARE
== END 2022-08-12 11:38 | disposition home or self-care (01) | DRG 540 ==
LOC: 4FBP 06:00
PROVIDERS: ADMIT Obstetrics & Gynecology; ATTEND Obstetrics & Gynecology
PROC: 10D00Z1 Extraction of Products of Conception, Low, Open Approach (ICD-10-PCS; principal; 2022-08-10 08:00)
DX: O34.211 Maternal care for low transverse scar from previous cesarean delivery (principal); F17.200 Nicotine dependence, unspecified, uncomplicated; O99.334 Smoking (tobacco) complicating childbirth; Z37.0 Single live birth; Z3A.39 39 weeks gestation of pregnancy
CPT/HCPCS: 80306; 85025; 86850; 86900; 86901